=== PATIENT | male | born 1945 | race Caucasian/White ===

== ENCOUNTER 2019-06-05 16:31 | Inpatient (IN) | payer MEDICARE, OTHER, MEDICAID, SELFPAY ==
--- NOTE | ~2019-06-05 | XR_ITS ---
EXAMINATION: XR chest 2V DATE: 06/05/2019 17:22 INDICATION: Fever TECHNIQUE: frontal and lateral views of the chest were obtained. COMPARISON: Chest radiograph dated 01/07/2019 FINDINGS: Unchanged subtle mild linear discoid atelectasis/scarring in the right middle lobe. Calcified nodule at the right costophrenic angle and calcified right hilar lymph nodes consistent with old granulomato us disease. The lungs remain otherwise clear with no new airspace opacities, pulmonary edema, pleural effusion or pneumothorax. The cardiomediastinal silhouette is normal. There are bridging osteophytes at multiple levels in the spine, consistent with diffuse idiopathic skeletal hyperostosis (DISH). IMPRESSION: 1. No acute cardiopulmonary disease. Reviewed, dictated and finalized at location A. COMMUNITY MANAGER
[2019-06-05 16:40] VITALS: BP 109/56; PULSE 103; RESP 20; TEMP 39.2; O2SAT 100
--- NOTE | 2019-06-05 16:56 | ED.FEVER ---
HPI - Fever General Chief Complaint: Fever Stated Complaint: flu like symptoms Time Seen by Provider: 06/05/19 16:48 Source: patient Mode of arrival: EMS Limitations: clinical condition and dementia History of Present Illness HPI Narrative: Patient is a 73-year-old male who presents to the emergency department via EMS from local alf with report of fever. Patient was given acetaminophen prior to arrival. Patient denies any focal illness symptoms aside from reporting some mild cough. MD elicited complaint: fever Pertinent past history: diabetes Associated symptoms: cough Treatments prior to arrival fever: acetaminophen Related Data Home Medications Medication Instructions Recorded Confirmed acetaminophen 500 mg PO Q6H PRN 06/05/19 alogliptin 25 mg PO DAILY 06/05/19 amlodipine 5 mg PO DAILY 06/05/19 aspirin 325 mg PO DAILY 06/05/19 atorvastatin 80 mg PO HS 06/05/19 cephalexin 500 mg PO Q8H 06/05/19 cholecalciferol (vitamin D3) 3,000 unit PO DAILY 06/05/19 dicyclomine 20 mg PO QID 06/05/19 finasteride 5 mg PO DAILY 06/05/19 furosemide 20 mg PO DAILY 06/05/19 gabapentin 300 mg PO TID 06/05/19 insulin aspart U-100 [Novolog 1 sliding scale dose SUBCUT 06/05/19 U-100 Insulin aspart] USEASDIRECTD insulin glargine [Lantus U-100 25 unit SUBCUT HS 06/05/19 Insulin] ipratropium-albuterol 3 ml INHALATION Q6H PRN 06/05/19 iron ps [id number] acid 1 cap PO BID 06/05/19 [Poly-Iron 150 Forte] lisinopril 40 mg PO DAILY 06/05/19 memantine [Namenda] 5 mg PO BID 06/05/19 metformin 1,000 mg PO DAILY 06/05/19 metoprolol tartrate 25 mg PO BID 06/05/19 ondansetron 4 mg PO Q6H PRN 06/05/19 oxycodone 5 mg PO Q8H PRN 06/05/19 simethicone 125 mg PO QID 06/05/19 Allergies Allergy/AdvReac Type Severity Reaction Status Date / Time shrimp Allergy Mild Unknown Verified 06/05/19 16:52 sulfamethoxazole Allergy Unknown Verified 06/05/19 16:50 [From Bactrim] trimethoprim [From Bactrim] Allergy Unknown Verified 06/05/19 16:50 Review of Systems Review of Systems: All systems reviewed & are unremarkable except as noted in HPI and below Constitutional: Constitutional: Reports fever(s) Respiratory: Respiratory: Reports cough PMFSH Past Medical History Medical History (Updated 06/05/19 @ 18:16 by Aida Zhao MD) 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 Anemia BPH (benign prostatic hyperplasia) CAD (coronary artery disease) Carotid stenosis CHF (congestive heart failure) Dementia Depression Diabetes Hip fracture requiring operative repair Hyperlipidemia Hypertension Hypothyroidism MRSA (methicillin resistant staph aureus) culture positive Osteoarthritis PAD (peripheral artery disease) UTI (urinary tract infection) Surgical History Surgical History (Updated 06/05/19 @ 17:31 by Aida Zhao MD) H/O cardiac catheterization History of coronary artery stent placement Social History Social History (Updated 04/30/19 @ 11:09 by Kate Adams) Smoking status: Current every day smoker Tobacco type: cigars Gender identity (if verbalized by the patient): Male Exam Const: General: cooperative, no acute distress, alert, diaphoretic and ill appearing acutely Nutritional Appearance: well nourished HENMT: Mouth: Yes lip normal and Yes dry mucous membranes Resp: Effort & Inspection: normal respiratory effort Auscultation: clear to auscultation bilaterally Cardio: Rate: regular rate Rhythm: regular rhythm GI: GI Palp: Yes Soft to palpation and No Tenderness to palpation present (GI) Auscultation: normal bowel sounds Skin: General skin exam: normal color Wounds: no wounds Neuro: General: moves all extremities Cognition (Neuro): normal cognition Speech: normal speech Extrem: General: full ROM and no clubbing, cyanosis or edema Right lower extremity: lower leg Other: Bilateral and below the knee amputation
[2019-06-05 17:21] LABS: Add Urine Microscopic? YES; Appearance Urine Cloudy (Clear); Bacteria Urine 4+ /hpf; Bilirubin Urine Negative (Negative); Blood Urine 2+ (Negative); Color Urine Yellow (Yellow); Glucose Urine UA 3+ mg/dL (Negative); Ketones Urine Negative (Negative); Leukocyte Esterase Ur 3+ LEU/UL (Negative); Mucus Urine Few /lpf; Nitrate Urine Negative (Negative); Protein Urine 1+ mg/dL (Negative); RBC Urine 21-50 /hpf (0-2); Specific Grav Ur 1.016 (1.001-1.035); Squamous Epithelial Cell Urine Rare /hpf (Few); Urobilinogen Urine Negative mg/dL (<2.0); WBC Urine 51-75 /hpf
[2019-06-05] MEDS: LACTATED RINGERS 1,000 ML 999 ML IV CONT (17:42)
[2019-06-05 17:45] LABS: Hematocrit 32.9 % (42.0-52.0); Hemoglobin 10.5 g/dL (14.0-18.0); Mean Corpuscular HGB Conc 31.9 g/dl (32-36); Mean Corpuscular Hemoglobin 26.9 pg (26-34); Mean Corpuscular Volume 84.1 fl (80-100); Mean Platelet Volume 10.7 fl (7.4-10.4); Platelet Count Result 255 k/mm3 (150-375); Red Blood Count 3.91 M/mm3 (4.6-6.20); Red Cell Distribution Width 17.1 % (11.5-14.5); White Blood Count 20.7 K/mm3 (4.5-10.0)
[2019-06-05 17:55] LABS: INR 1.1
[2019-06-05 17:56] LABS: Partial Thromboplastin Time 32.8 SECONDS (22.3-36.8)
[2019-06-05 17:57] LABS: Lactic Acid Reflex 1.8 mmol/L (0.7-2.1)
[2019-06-05 17:59] LABS: Band Neutrophils Percent 1 % (0-6); Lymphocytes Absolute Manual 2.07 K/mm3 (1.1-4.5); Monocytes Absolute Manual 1.03 K/mm3 (0.1-0.90); Monocytes Percent Manual 5 % (3-9); Neutrophils Absolute Manual 17.59 K/mm3 (1.3-6.7); Neutrophils Percent Manual 84 % (46-73); Ovalocytes 1+ (NORMAL); Platelet Estimate Adequate (Adequate); Total Cells Counted 100
[2019-06-05 18:09] LABS: Alanine Aminotransferase 19 U/L (4-50); Albumin Level 3.6 g/dL (3.5-5.1); Alkaline Phosphatase 72 U/L (38-126); Aspartate Amino Transferase 25 U/L (17-59); Bilirubin,Total 0.5 mg/dL (0.2-1.3); Blood Urea Nitrogen 20 mg/dL (9-20); Carbon Dioxide 27 mmol/L (22-30); Chloride 95 mmol/L (98-107); Estimated Glomerular Filt Rate > 60; Glucose 253 mg/dL (75-110); Potassium 3.9 mmol/L (3.4-5.0); Sodium 135 mmol/L (137-145)
--- NOTE | 2019-06-05 19:22 | PM.IMHP ---
H&P: HPI History of Present Illness Chief complaint: Sent to the hospital secondary to fever Narrative: This is a 73-year-old insulin-dependent diabetic male with known history of bilateral BKAs who is known to me from a previous hospitalization and presented to the hospital tonight from his [facility] secondary to fever. The patient complains of feeling tired and weak. He says that he believes he was sent here because he had fever. He denies any recent confusion or disorientation. He denies any headache, neck stiffness, shortness of breath, chest pain, abdominal pain, nausea, vomiting, diarrhea, rectal bleeding, or worsening swelling. The patient does report a sporadic cough recently. He denies any sore throat or congestion. The patient was evaluated emergency room this evening and found to be septic [place] [address], fever of 39.2? C, and tachycardic with a heart rate of 103 beats per minute. Urinalysis was grossly abnormal in the patient has been started on antibiotics for presumed UTI. On further questioning [facility]. Denies any other urinary symptoms that he is aware of. Initial lactic acid was negative. Blood pressure has been stable. 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 Anemia BPH (benign prostatic hyperplasia) CAD (coronary artery disease) Carotid stenosis CHF (congestive heart failure) Dementia Depression Diabetes Hip fracture requiring operative repair Hyperlipidemia Hypertension Hypothyroidism MRSA (methicillin resistant staph aureus) culture positive Osteoarthritis PAD (peripheral artery disease) UTI (urinary tract infection) Surgical History Surgical History H/O cardiac catheterization History of below-knee amputation of both lower extremities History of coronary artery stent placement Family History Family History Father AA (alcohol abuse) Sibling Breast cancer Mother Ovarian cancer Social History Social History Smoking status: Current every day smoker Tobacco type: cigars Alcohol intake: unknown Substance use: unknown Substance use type: does not use Gender identity (if verbalized by the patient): Male Spiritual care concerns: No Agree to blood products: Yes Meds Home Medications and Allergies Home Medications Medication Instructions Recorded Confirmed Type acetaminophen 1,000 mg PO Q4H PRN 06/05/19 06/05/19 History alogliptin 25 mg PO DAILY 06/05/19 06/05/19 History amlodipine 5 mg PO HS 06/05/19 06/05/19 History aspirin 325 mg PO DAILY 06/05/19 06/05/19 History atorvastatin 80 mg PO HS 06/05/19 06/05/19 History cephalexin 500 mg PO Q8H 06/05/19 06/05/19 History cholecalciferol (vitamin D3) 1,000 unit PO DAILY 06/05/19 06/05/19 History dicyclomine 20 mg PO QID 06/05/19 06/05/19 History finasteride 5 mg PO DAILY 06/05/19 06/05/19 History furosemide 20 mg PO DAILY 06/05/19 06/05/19 History gabapentin 300 mg PO TID 06/05/19 06/05/19 History insulin aspart U-100 [Novolog 1 sliding scale dose SUBCUT 06/05/19 06/05/19 History U-100 Insulin aspart] USEASDIRECTD insulin glargine [Lantus U-100 100 unit SUBCUT HS 06/05/19 06/05/19 History Insulin] ipratropium-albuterol 3 ml INHALATION TID PRN 06/05/19 06/05/19 History iron ps [id number] acid 1 cap PO BID 06/05/19 06/05/19 History [Poly-Iron 150 Forte] lisinopril 40 mg PO DAILY 06/05/19 06/05/19 History memantine [Namenda] 5 mg PO BID 06/05/19 06/05/19 History metformin 1,000 mg PO DAILY 06/05/19 06/05/19 History metoprolol tartrate 25
[2019-06-05 19:34] VITALS: BP 124/51; PULSE 84; RESP 17; TEMP 37.4; O2SAT 100
[2019-06-05 20:34] LABS: Glucose Point of Care 243 (65-105)
[2019-06-05] MEDS: SODIUM CHLORIDE 0.9% IV 1,000 ML 125 ML IV CONT (21:05)
[2019-06-05 21:32] VITALS: BP 118/68; PULSE 81; RESP 18; TEMP 36.3; O2SAT 98; BMI 38.3
[2019-06-05 21:42] LABS: Glucose Point of Care 202 (65-105)
[2019-06-05 22:10] LABS: Lactic Acid Reflex 1.7 mmol/L (0.7-2.1)
[2019-06-06] MEDS: ACETAMINOPHEN 325 MG TABLET 650 MG PO ×2 (03:41→20:46)
[2019-06-06] MEDS: SODIUM CHLORIDE 0.9% IV 1,000 ML 125 ML IV CONT (04:55)
[2019-06-06 05:38] LABS: Basophils Percent Auto 0.3 % (0.2-1.2); Eosinophils Absolute Auto 0.1 K/mm3 (0-0.3); Eosinophils Percent Auto 0.5 % (0-4.4); Hematocrit 28.8 % (42.0-52.0); Hemoglobin 9.2 g/dL (14.0-18.0); Immature Granulocyte Absolute 0.07 K/mm3 (0.00-0.031); Immature Granulocyte Percent A 0.5 % (0-0.5); Lymphocytes Absolute Auto 1.56 K/mm3 (0.9-3.2); Mean Corpuscular HGB Conc 31.9 g/dl (32-36); Mean Corpuscular Volume 84.5 fl (80-100); Mean Platelet Volume 10.8 fl (7.4-10.4); Monocytes Absolute Auto 0.8 K/mm3 (0.1-0.6); Monocytes Percent Auto 5.9 % (2.6-8.5); Neutrophils Absolute Auto 11.6 K/mm3 (1.3-6.7); Neutrophils Percent Auto 81.8 % (45.5-73.1); Platelet Count Result 210 k/mm3 (150-375); Red Blood Count 3.41 M/mm3 (4.6-6.20); Red Cell Distribution Width 17.2 % (11.5-14.5); White Blood Count 14.2 K/mm3 (4.5-10.0)
[2019-06-06 05:57] LABS: Blood Urea Nitrogen 18 mg/dL (9-20); Calcium 8.4 mg/dL (8.4-10.2); Carbon Dioxide 27 mmol/L (22-30); Chloride 100 mmol/L (98-107); Estimated CRCL calculation 77 ml/min; Estimated Glomerular Filt Rate > 60; Glucose 193 mg/dL (75-110); Potassium 3.5 mmol/L (3.4-5.0); Sodium 135 mmol/L (137-145)
[2019-06-06 06:00] VITALS: BP 123/71; PULSE 78; RESP 16; TEMP 36.2; O2SAT 96
[2019-06-06] MEDS: ENOXAPARIN 40 MG/0.4 ML SYRINGE SUB-Q (07:47)
[2019-06-06 07:53] LABS: Glucose Point of Care 176 (65-105)
[2019-06-06 09:04] LABS: Transferrin 143 mg/dL (206-381)
[2019-06-06 09:33] LABS: Iron 19 ug/dL (49-181)
[2019-06-06 09:42] LABS: Percent Iron Saturation 9 % (20-50)
[2019-06-06 09:45] LABS: Thyroid Stimulating Hormone Reflex 0.222 uIU/mL (0.465-4.68)
[2019-06-06 09:59] LABS: Folic Acid 15.8 ng/mL (2.76->20)
[2019-06-06] MEDS: INSULIN ASPART (*BKC) 100 UNITS/ML SUB-Q ×2 (11:36→17:17)
[2019-06-06 11:37] LABS: Glucose Point of Care 239 (65-105)
[2019-06-06 12:03] LABS: Free T4 Free Thyroxine Reflex 1.86 ng/dL (0.78-2.19)
[2019-06-06 13:09] LABS: Total Triiodothyronine (T3) 0.84 NG/ML (0.97-1.69)
[2019-06-06 14:00] VITALS: BP 132/55; PULSE 87; RESP 16; TEMP 36.1; O2SAT 96
--- NOTE | 2019-06-06 17:13 | PM.IMPN ---
Progress Note: A&P Assessment and Plan (1) Sepsis: Qualifiers: Sepsis acute organ dysfunction status: without acute organ dysfunction Sepsis type: sepsis due to unspecified organism Qualified Code(s): A41.9 - Sepsis, unspecified organism Code(s): A41.9 - Sepsis, unspecified organism Status: Acute Assessment and Plan: Patient's temperature was a 102.5?, blood pressure 109/56, tachycardic 103, 100% on room air in leukocytosis of 20,700 which met for sepsis with evidence of UTI. Lactic acid was normal. Today patient's leukocytosis improved to 14,200, non tachycardic, no more fevers, and BP has normalized. IV fluids were discontinued due to history of congestive heart failure. Monitor vital signs and urine output closely. Continue IV vancomycin. (2) UTI (urinary tract infection): Qualifiers: Hematuria presence: without hematuria Urinary tract infection type: site unspecified Qualified Code(s): N39.0 - Urinary tract infection, site not specified Code(s): N39.0 - Urinary tract infection, site not specified Status: Acute Assessment and Plan: Rule out UTI with abnormal urinalysis. Patient has been started on ceftriaxone IV in the emergency room despite the fact that the patient had a positive urine culture in December of this year for a multi-drug resistant MRSA which included resistance to oxacillin. Upon admission to the floor he was started on vancomycin IV. Infectious disease was consulted this morning for further recommendations based on his history and length of therapy. Patient denies any symptoms at this time and is feeling better. Patient's urine culture came back Gram-negative bacilli isolation, final results and sensitivities are pending. Continue IV vancomycin at this time and monitoring the patient's symptoms. (3) Chronic anemia: Code(s): D64.9 - Anemia, unspecified Status: Chronic Assessment and Plan: Patient's hemoglobin ranges between 10 and 12 normally. With prior hospitalizations last year he was in 8 and 9's. Hemoglobin as an outpatient on 04/30/2019 was 15.2, initially on arrival his hemoglobin was 10.5. Hemoglobin seems to have dropped significantly over the past month. The patient denies any active rectal bleeding. We will check a stool occult for blood. This morning hemoglobin was 9.2 and hematocrit 28.8%. This decreased could be due to IV fluid dilution. I did check iron panel which shows anemia of chronic disease. His vitamin B12 and folic acid were both normal. TSH was slightly low but had a normal free T4. Will have follow-up with his primary care provider with a repeat 6 weeks. Monitor H&H, transfuse p.r.n. (4) Leukocytosis: Qualifiers: Leukocytosis type: unspecified Qualified Code(s): D72.829 - Elevated white blood cell count, unspecified Code(s): D72.829 - Elevated white blood cell count, unspecified Status: Acute Assessment and Plan: Likely secondary to UTI and sepsis. Leukocytosis improving with IV antibiotics. Monitor CBCD. 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 continue metformin. Continue long-acting Lantus insulin. This morning serum glucose was 193. Accu-Cheks, sliding scale insulin coverage. Hypoglycemia protocol.
[2019-06-06 17:20] LABS: Glucose Point of Care 208 (65-105)
[2019-06-06 19:22] LABS: IFOB Positive Control Positive; Immunochemical Fecal Occult Bl Negative (N)
[2019-06-06] MEDS: APIXABAN 5 MG TABLET PO (21:35)
[2019-06-06 21:37] VITALS: BP 157/66; PULSE 90; RESP 16; TEMP 36.3; O2SAT 96
[2019-06-06 22:50] LABS: Glucose Point of Care 158 (65-105)
[2019-06-07 05:46] VITALS: BP 165/63; PULSE 92; RESP 16; TEMP 36.3; O2SAT 95
[2019-06-07 06:04] LABS: Basophils Percent Auto 0.3 % (0.2-1.2); Eosinophils Absolute Auto 0.2 K/mm3 (0-0.3); Eosinophils Percent Auto 1.1 % (0-4.4); Hematocrit 33.3 % (42.0-52.0); Hemoglobin 10.8 g/dL (14.0-18.0); Immature Granulocyte Absolute 0.05 K/mm3 (0.00-0.031); Immature Granulocyte Percent A 0.4 % (0-0.5); Lymphocytes Absolute Auto 1.51 K/mm3 (0.9-3.2); Lymphocytes Percent Auto 10.8 % (18.3-44.2); Mean Corpuscular HGB Conc 32.4 g/dl (32-36); Mean Corpuscular Hemoglobin 26.6 pg (26-34); Mean Platelet Volume 10.6 fl (7.4-10.4); Monocytes Absolute Auto 0.8 K/mm3 (0.1-0.6); Monocytes Percent Auto 5.3 % (2.6-8.5); Neutrophils Absolute Auto 11.5 K/mm3 (1.3-6.7); Neutrophils Percent Auto 82.1 % (45.5-73.1); Platelet Count Result 249 k/mm3 (150-375); Red Blood Count 4.06 M/mm3 (4.6-6.20); Red Cell Distribution Width 16.6 % (11.5-14.5)
[2019-06-07 06:29] LABS: Blood Urea Nitrogen 12 mg/dL (9-20); Calcium 8.4 mg/dL (8.4-10.2); Carbon Dioxide 25 mmol/L (22-30); Chloride 94 mmol/L (98-107); Estimated CRCL calculation 105 ml/min; Estimated Glomerular Filt Rate > 60; Glucose 195 mg/dL (75-110); Magnesium 1.7 mg/dL (1.6-2.3); Potassium 3.9 mmol/L (3.4-5.0); Sodium 135 mmol/L (137-145)
[2019-06-07 08:00] VITALS: PULSE 92; RESP 16; O2SAT 95
[2019-06-07] MEDS: INSULIN ASPART (*BKC) 100 UNITS/ML SUB-Q ×3 (08:16→17:51)
[2019-06-07] MEDS: APIXABAN 5 MG TABLET PO ×2 (08:16→21:31)
[2019-06-07] MEDS: DOCUSATE SODIUM 100 MG CAPSULE PO (08:16)
[2019-06-07 08:22] LABS: Glucose Point of Care 226 (65-105)
--- NOTE | 2019-06-07 09:54 | PM.IMPN ---
Progress Note: A&P Assessment and Plan (1) Sepsis: Qualifiers: Sepsis acute organ dysfunction status: without acute organ dysfunction Sepsis type: sepsis due to unspecified organism Qualified Code(s): A41.9 - Sepsis, unspecified organism Code(s): A41.9 - Sepsis, unspecified organism Status: Acute Assessment and Plan: On arrival patient's temperature was a 102.5?, blood pressure 109/56, tachycardic 103, 100% on room air in leukocytosis of 20,700 which met for sepsis with evidence of UTI. Lactic acid was normal. Today patient's leukocytosis continues to be 14,000, non tachycardic, no more fevers, and BP has normalized. Urine culture came back today showing he has ESBL E coli and IV vancomycin was not sensitive. I switched him to IV cefepime today. Disease was consulted on the patient and his input is greatly appreciated. Monitor vital signs and urine output closely. Continue IV vancomycin. (2) UTI (urinary tract infection): Qualifiers: Hematuria presence: without hematuria Urinary tract infection type: site unspecified Qualified Code(s): N39.0 - Urinary tract infection, site not specified Code(s): N39.0 - Urinary tract infection, site not specified Status: Acute Assessment and Plan: Rule out UTI with abnormal urinalysis. Patient has been started on ceftriaxone IV in the emergency room despite the fact that the patient had a positive urine culture in December of this year for a multi-drug resistant MRSA which included resistance to oxacillin. Upon admission to the floor he was started on vancomycin IV. Today the patient's urine cultures came back showing ESBL E coli. I switch the patient IV cefepime for treatment this morning. Infectious disease consult was placed and treatment is greatly appreciated. Continue IV vancomycin at this time and monitoring the patient's symptoms. (3) Chronic anemia: Code(s): D64.9 - Anemia, unspecified Status: Chronic Assessment and Plan: Patient's hemoglobin ranges between 10 and 12 normally. With prior hospitalizations last year he was in 8 and 9's. Hemoglobin as an outpatient on 04/30/2019 was 15.2, initially on arrival his hemoglobin was 10.5. Hemoglobin seems to have dropped significantly over the past month. The patient denies any active rectal bleeding. Stool Hemoccult was negative for blood. This morning hemoglobin was 10.8 and hematocrit 33.3%. This decreased could be due to IV fluid dilution. I did check iron panel which shows anemia of chronic disease. His vitamin B12 and folic acid were both normal. TSH was slightly low but had a normal free T4. Will have follow-up with his primary care provider with a repeat 6 weeks. Monitor H&H, transfuse p.r.n. (4) Leukocytosis: Qualifiers: Leukocytosis type: unspecified Qualified Code(s): D72.829 - Elevated white blood cell count, unspecified Code(s): D72.829 - Elevated white blood cell count, unspecified Status: Acute Assessment and Plan: Likely secondary to UTI and sepsis. Leukocytosis was stable today. This morning I switched him to the correct antibiotics to treat his UTI. Monitor CBCD daily. 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 continue metformin. Continue long-acting Lantus insulin.
[2019-06-07] MEDS: SILVERGEL (ELTA) 45 ML 1 APPLIC TOPICAL (13:09)
--- NOTE | 2019-06-07 13:25 | WPDINFPN2 ---
Progress Note: A&P Assessment and Plan (1) UTI (urinary tract infection): Qualifiers: Hematuria presence: without hematuria Urinary tract infection type: site unspecified Qualified Code(s): N39.0 - Urinary tract infection, site not specified Code(s): N39.0 - Urinary tract infection, site not specified Status: Acute Assessment and Plan: fever and leukocytosis, probable uti REC Flu swab. Imipenem # 1 / 7 days tentatively Subjective Date/time seen: 06/07/19 13:25 Objective Data Vital Signs Vital Signs: Vital Signs - 24 hr 06/06/19 14:00 06/06/19 21:37 06/07/19 05:46 Temperature 36.1 C L 36.3 C L 36.3 C L Pulse Rate 87 90 92 Respiratory Rate 16 16 16 Blood Pressure 132/55 L 157/66 H 165/63 H Pulse Oximetry 96 96 95 06/07/19 08:00 Temperature Pulse Rate 92 Respiratory Rate 16 Blood Pressure Pulse Oximetry 95 Intake/Output Intake/Output: Intake & Output 06/04/19 06/05/19 06/06/19 06/07/19 23:59 23:59 23:59 23:59 Intake Total 1300 4229 620 Output Total 500 1960 1575 Balance 800 8689 -512 Meds/Results Medications: Active Medications Generic Name Dose Route Start Last Admin Trade Name Freq PRN Reason Stop Dose Admin Acetaminophen 650 mg 06/05/19 18:11 06/06/19 20:46 Tylenol Tablet PO 650 mg Q4H PRN Administration Mild Pain (1-3) or Fever Apixaban 5 mg 06/06/19 21:00 06/07/19 08:16 Eliquis PO 5 mg Q12HR SHAN Administration Dextrose 12.5 gm 06/05/19 19:42 Dextrose 50% Syringe IV PUSH PRN PRN Hypoglycemia Protocol Docusate Sodium 100 mg 06/06/19 17:17 06/07/19 08:16 Colace Capsule PO 100 mg Q12H PRN Administration Constipation Glucagon 1 mg 06/05/19 19:42 Glucagon For Inj IM PRN PRN Hypoglycemia Protocol Glucose 15 gm 06/05/19 19:42 Glutose 15 PO PRN PRN Hypoglycemia Protocol Dextrose 1,000 mls @ 100 mls/hr 06/05/19 19:42 Dextrose 5% 1,000 Ml IVPB PRN PRN Hypoglycemia Protocol Cefepime HCl 1 gm in 50 mls @ 100 mls/hr 06/07/19 07:40 06/07/19 13:16 Maxipime 1 Gm/D5w 50 Ml IVPB 100 mls/hr Q8HR SHAN Administration Insulin Aspart 3 - 6 units 06/06/19 08:00 06/07/19 13:08 Novolog SUB-Q 6 units TIDWM SHAN Administration Protocol Miconazole Nitrate 1 applic 06/07/19 09:00 06/07/19 13:10 [place] TOPICAL 1 applic Q12HR SHAN Administration Silver Nitrate 1 applic 06/07/19 09:00 06/07/19 13:09 Silvergel TOPICAL 1 applic DAILY SHAN Administration Radiology Results: ITS Impressions Chest X-Ray 06/05/19 17:49 IMPRESSION: 1. No acute cardiopulmonary disease. Labs Labs: Laboratory Results - last 24 hr 06/06/19 06/06/19 06/06/19 17:16 18:54 22:45 WBC RBC Hgb Hct MCV MCH MCHC RDW Plt Count MPV Immature Gran % (Auto) Neut % (Auto) Lymph % (Auto) Mclean % (Auto) Eos % (Auto) Baso % (Auto) Lymph # (Auto) Mclean # (Auto) Eos # (Auto) Baso # (Auto) Abs Immat Gran (auto) Absolute Neuts (auto) Absolute Nucleated RBC Nucleated RBC % Sodium Potassium Chloride Carbon Dioxide BUN Creatinine Estim Creat Clear Calc Estimated GFR Glucose POC Capillary Glucose 208 H 158 H Calcium Magnesium Stl Occult Blood (IFOB) Negative 06/07/19 06/07/19 06/07/19 05:41 05:41 08:06 WBC 14.0 H RBC 4.06 L Hgb 10.8 L Hct 33.3 L MCV 82.0 MCH 26.6 MCHC 32.4 RDW 16.6 H Plt Count 249 MPV 10.6 H Immature Gran % (Auto) 0.4 Neut % (Auto) 82.1 H Lymph % (Auto) 10.8 L Mclean % (Auto) 5.3 Eos % (Auto) 1.1 Baso % (Auto) 0.3 Lymph # (Auto) 1.51 Mclean # (Auto) 0.8 H Eos # (Auto) 0.2 Baso # (Auto) 0.0 Abs Immat Gran (auto) 0.05 H Absolute Neuts (auto) 11.5 H Absolute Nucleated RBC 0.0 Nucleated RBC % 0.0
[2019-06-07 13:49] LABS: Glucose Point of Care 358 (65-105)
[2019-06-07 14:00] VITALS: BP 118/58; PULSE 89; RESP 16; TEMP 36.3; O2SAT 98
[2019-06-07] MEDS: IMIPENEM/CILASTATIN SODIUM 250 MG in DEXTROSE 5% 100 ML 300 MG IVPB (17:51)
--- NOTE | 2019-06-07 18:32 | CONS_ITS ---
DATE OF CONSULTATION: 06/07/2019 REASON FOR CONSULTATION: Fever. HISTORY OF PRESENT ILLNESS: The patient is a 73-year-old male with known BPH. He was admitted here last year with a fracture of his femur and underwent gamma nail insertion. [facility] with 1 day of fever to unknown height with dysuria. Here he was found to have a temperature of 39.2 and was admitted. He has been given cefepime and consultation is requested. He denies any current voiding symptoms and also denies rigors, night sweats, dyspnea, cough, sore throat, headache, skin rash, diarrhea, nausea, vomiting, or ulcers. ALLERGIES: TRIMETHOPRIM SULFA CAUSED UNKNOWN REACTION IN THE PAST. PRESENT MEDICATIONS: List reviewed. No systemic immunosuppressants. Cephalexin was listed as a home medication. I do not have the jail records to compare. HABITS: Cigar smoker. No alcohol. FAMILY HISTORY: Alcoholism and cancer. PAST MEDICAL AND SURGICAL HISTORY: Bilateral BKAs, coronary stents, peripheral vascular disease, osteoarthritis, hypothyroidism, hypertension, hyperlipidemia, diabetes mellitus, dementia, heart failure, carotid artery stenosis, and chronic anemia. SOCIAL HISTORY: No family at the bedside. He is listed as being single and jail resident. Before his femur fracture, he was in an assisted living. REVIEW OF SYSTEMS: Somewhat limited by the patient's dementia. A 14-point review otherwise negative. PHYSICAL EXAMINATION: GENERAL: This is an elderly male who appears his actual age, in no acute distress. VITAL SIGNS: His temperature several hours after arrival was 39.2, afebrile x36 hours plus. 165/63, 92, 16. 95% on room air. SKIN: Pale, warm, and dry. No rashes. NODES: He has no cervical adenopathy. EENT: The paranasal sinuses are without erythema, edema, or tenderness. The oropharynx, oral mucosa is normal. Edentulous. NECK: No thyromegaly. No meningismus. LUNGS: Clear to auscultation and percussion. CARDIAC: Regular rate and rhythm. Has a grade 1/6 systolic flow murmur, left sternal border. PMI is not displaced. ABDOMEN: Mildly obese, nontender. No mass. No organomegaly. : No [place]shine catheter. Circumcised male. EXTREMITIES: BKA sites are without evidence of erythema, wound dehiscence, tenderness, or warmth. Upper extremities have no clubbing, cyanosis, edema. LABORATORY DATA: Urine with an ESBL producing E coli. Blood cultures, no growth so far. His MRSA screen also on admission negative. White blood cell count initially 20.7, now 14.0, hemoglobin 10.8, which is stable and platelets are 249. Differential with a mild left shift. He has mild hyponatremia, hypochloremia. Glucose 195, down from 253. Prior hemoglobin A1c in December was 6.7%. Iron, TIBC both low. CRP 22.0. TSH is low. Free T4 normal. Urinalysis yellow, cloudy, 5.0, 1.016, positive for protein, glucose and blood and leukocyte esterase, 21 to 50 red cells, 51 to 75 white cells with clumping. Guaiac negative. RADIOLOGY DATA: Chest x-ray, no active disease. Abdomen and pelvic CT performed 5 weeks prior to admission, small bowel edema, left hepatic lobe hyperenhancing lesion, gallstones, diffuse bladder wall thickening, adenopathy, visceral. ASSESSMENT: 1. Fever and leukocytosis, suspect due to an extended spectrum beta-lactamase producing Escherichia coli urinary tract infection in the urinary bladder only. Upper tract infections unlikely. He probably has chronic cystitis from outlet obstruction in turn from benign prostatic hypertrophy. 2. Dementia. 3. Trimethoprim sulfa allergy. 4. Anemia. RECOMMENDATIONS: 1. Change cefepime to imipenem and tentatively 7 days. 2. No further cephalexin at this time. 3. Not in need of
[2019-06-07 18:34] LABS: Glucose Point of Care 292 (65-105)
[2019-06-07] MEDS: ACETAMINOPHEN 325 MG TABLET 650 MG PO (20:20)
[2019-06-07 21:45] VITALS: BP 151/60; PULSE 86; RESP 18; TEMP 36.4; O2SAT 99
[2019-06-07 22:25] LABS: Glucose Point of Care 201 (65-105)
[2019-06-08] MEDS: ACETAMINOPHEN 325 MG TABLET 650 MG PO ×3 (00:16→19:59)
[2019-06-08] MEDS: IMIPENEM/CILASTATIN SODIUM 250 MG in DEXTROSE 5% 100 ML 300 MG IVPB ×5 (00:44→23:47)
[2019-06-08 06:11] LABS: Basophils Percent Auto 0.3 % (0.2-1.2); Eosinophils Absolute Auto 0.2 K/mm3 (0-0.3); Eosinophils Percent Auto 1.8 % (0-4.4); Hematocrit 36.6 % (42.0-52.0); Hemoglobin 11.6 g/dL (14.0-18.0); Immature Granulocyte Absolute 0.05 K/mm3 (0.00-0.031); Immature Granulocyte Percent A 0.5 % (0-0.5); Lymphocytes Absolute Auto 1.68 K/mm3 (0.9-3.2); Mean Corpuscular HGB Conc 31.7 g/dl (32-36); Mean Corpuscular Hemoglobin 26.5 pg (26-34); Mean Corpuscular Volume 83.6 fl (80-100); Mean Platelet Volume 11.5 fl (7.4-10.4); Monocytes Absolute Auto 0.7 K/mm3 (0.1-0.6); Neutrophils Absolute Auto 7.8 K/mm3 (1.3-6.7); Neutrophils Percent Auto 74.4 % (45.5-73.1); Platelet Count Result 288 k/mm3 (150-375); Red Blood Count 4.38 M/mm3 (4.6-6.20); Red Cell Distribution Width 16.5 % (11.5-14.5); White Blood Count 10.5 K/mm3 (4.5-10.0)
[2019-06-08 06:21] LABS: Blood Urea Nitrogen 14 mg/dL (9-20); Carbon Dioxide 26 mmol/L (22-30); Chloride 94 mmol/L (98-107); Estimated CRCL calculation 105 ml/min; Estimated Glomerular Filt Rate > 60; Glucose 222 mg/dL (75-110); Potassium 3.5 mmol/L (3.4-5.0); Sodium 134 mmol/L (137-145)
[2019-06-08 06:25] VITALS: BP 149/68; PULSE 87; RESP 18; TEMP 36.1; O2SAT 97
[2019-06-08 08:00] VITALS: PULSE 87; RESP 18; O2SAT 97
[2019-06-08 08:03] LABS: Glucose Point of Care 233 (65-105)
[2019-06-08] MEDS: APIXABAN 5 MG TABLET PO (08:14)
[2019-06-08] MEDS: INSULIN ASPART (*BKC) 100 UNITS/ML SUB-Q ×3 (08:14→17:26)
[2019-06-08] MEDS: DOCUSATE SODIUM 100 MG CAPSULE PO (08:14)
[2019-06-08] MEDS: SILVERGEL (ELTA) 45 ML 1 APPLIC TOPICAL (08:15)
[2019-06-08 12:56] LABS: Glucose Point of Care 257 (65-105)
--- NOTE | 2019-06-08 13:01 | WPDINFPN2 ---
Progress Note: A&P Assessment and Plan (1) UTI (urinary tract infection): Qualifiers: Hematuria presence: without hematuria Urinary tract infection type: site unspecified Qualified Code(s): N39.0 - Urinary tract infection, site not specified Code(s): N39.0 - Urinary tract infection, site not specified Status: Acute Assessment and Plan: 1. fever and leukocytosis, suspect due to ESBL producing UTI 2. Dementia REC Flu swab not sent, re-request. Imipenem # 2 / 7 days tentatively, tolerating Subjective Date/time seen: 06/08/19 13:01 Interval history: no complaints, good appetite, no chills nor subjective fever Exam Narrative: Exam Narrative: afebrile since last visit Const: General: no acute distress Eyes: General: appearance normal, both eyes and all related structures Resp: Effort & Inspection: normal respiratory effort Auscultation: clear to auscultation bilaterally Cardio: Rate: regular rate Rhythm: regular rhythm Heart sounds: no gallops and no murmurs GI: Inspection: non-distended GI Palp: Yes Soft to palpation, No Tenderness to palpation present (GI) and No Guarding due to palpation present (GI) : General: Yes bladder normal to palpation Skin: General skin exam: no rashes or lesions noted Objective Data Vital Signs Vital Signs: Vital Signs - 24 hr 06/07/19 14:00 06/07/19 21:45 06/08/19 06:25 Temperature 36.3 C L 36.4 C L 36.1 C L Pulse Rate 89 86 87 Respiratory Rate 16 18 18 Blood Pressure 118/58 L 151/60 H 149/68 H Pulse Oximetry 98 99 97 06/08/19 08:00 Temperature Pulse Rate 87 Respiratory Rate 18 Blood Pressure Pulse Oximetry 97 Intake/Output Intake/Output: Intake & Output 06/05/19 06/06/19 06/07/19 06/08/19 23:59 23:59 23:59 23:59 Intake Total 1300 4229 1940 1240 Output Total 500 1960 2575 400 Balance 800 226 -253 840 Meds/Results Medications: Active Medications Generic Name Dose Route Start Last Admin Trade Name Freq PRN Reason Stop Dose Admin Acetaminophen 650 mg 06/05/19 18:11 06/08/19 08:19 Tylenol Tablet PO 650 mg Q4H PRN Administration Mild Pain (1-3) or Fever Apixaban 5 mg 06/06/19 21:00 06/08/19 08:14 Eliquis PO 5 mg Q12HR SHAN Administration Dextrose 12.5 gm 06/05/19 19:42 Dextrose 50% Syringe IV PUSH PRN PRN Hypoglycemia Protocol Docusate Sodium 100 mg 06/06/19 17:17 06/08/19 08:14 Colace Capsule PO 100 mg Q12H PRN Administration Constipation Glucagon 1 mg 06/05/19 19:42 Glucagon For Inj IM PRN PRN Hypoglycemia Protocol Glucose 15 gm 06/05/19 19:42 Glutose 15 PO PRN PRN Hypoglycemia Protocol Dextrose 1,000 mls @ 100 mls/hr 06/05/19 19:42 Dextrose 5% 1,000 Ml IVPB PRN PRN Hypoglycemia Protocol Imipenem/Cilastatin Sodium 250 100 mls @ 300 mls/hr 06/07/19 18:00 06/08/19 12:31 mg/ Dextrose IVPB 06/14/19 18:01 300 mls/hr Q6H SHAN Administration Insulin Aspart 3 - 6 units 06/06/19 08:00 06/08/19 12:32 Novolog SUB-Q 4 units TIDWM SHAN Administration Protocol Miconazole Nitrate 1 applic 06/07/19 09:00 06/08/19 08:15 Aloe [place] TOPICAL 1 applic Q12HR SHAN Administration Silver Nitrate 1 applic 06/07/19 09:00 06/08/19 08:15 Silvergel TOPICAL 1 applic DAILY SHAN Administration Radiology Results: ITS Impressions Chest X-Ray 06/05/19 17:49 IMPRESSION: 1. No acute cardiopulmonary disease. Labs Labs: Laboratory Results - last 24 hr 06/07/19 06/07/19 06/07/19 13:05 17:45 21:28 WBC RBC Hgb Hct MCV MCH MCHC RDW Plt Count MPV Immature Gran % (Auto) Neut % (Auto) Lymph % (Auto) [place] % (Auto) Eos % (Auto) Baso % (Auto) Lymph # (Auto) [place] # (Auto) Eos # (Auto) Baso # (Auto) Abs Immat Gran (auto) Absolute Neuts (auto) Absolute Nucleated RBC Nucleated RB
[2019-06-08 14:00] VITALS: BP 142/46; PULSE 85; RESP 20; TEMP 36.1; O2SAT 97
[2019-06-08 14:50] VITALS: BMI 38.3
--- NOTE | 2019-06-08 15:37 | PC.NURSE ---
On 06/08/19, the student, Belen Araujo, provided care and completed [facility] documentation on this patient. I have reviewed the student's documentation and agree with the findings.
[2019-06-08 17:29] LABS: Glucose Point of Care 276 (65-105)
[2019-06-08 18:32] LABS: Influenza Control Positive
--- NOTE | 2019-06-08 20:24 | PM.IMPN ---
Progress Note: A&P Assessment and Plan (1) UTI (urinary tract infection): Qualifiers: Hematuria presence: without hematuria Urinary tract infection type: site unspecified Qualified Code(s): N39.0 - Urinary tract infection, site not specified Code(s): N39.0 - Urinary tract infection, site not specified Status: Acute Assessment and Plan: ESBL UTI susceptible to imipenem. Patient improving clinically ID consulted and greatly appreciate recommendations Continue IV imipenem per ID recommendations. Monitor (2) Sepsis: Qualifiers: Sepsis acute organ dysfunction status: without acute organ dysfunction Sepsis type: sepsis due to unspecified organism Qualified Code(s): A41.9 - Sepsis, unspecified organism Code(s): A41.9 - Sepsis, unspecified organism Status: Acute Assessment and Plan: On arrival patient's temperature was a 102.5?, blood pressure 109/56, tachycardic 103, 100% on room air in leukocytosis of 20,700 which met for sepsis with evidence of UTI. Lactic acid was normal. This has improved, if not nearly resolved with treatment of UTI. Continue imipenem treatment per ID recommendations Await further recommendations from ID. (3) Chronic anemia: Code(s): D64.9 - Anemia, unspecified Status: Chronic Assessment and Plan: Patient's hemoglobin ranges between 10 and 12 normally. With prior hospitalizations last year he was in 8 and 9's with a Hgb of 15.2 in 04/2019, although, possibly falsely elevated. Stool Hemoccult was negative for blood. Iron panel which suggestive of anemia of chronic disease. His vitamin B12 and folic acid were both normal. TSH was slightly low but had a normal free T4. Will have follow-up with his primary care provider with a repeat TSH in 6 weeks. Monitor H&H, transfuse p.r.n. (4) Leukocytosis: Qualifiers: Leukocytosis type: unspecified Qualified Code(s): D72.829 - Elevated white blood cell count, unspecified Code(s): D72.829 - Elevated white blood cell count, unspecified Status: Acute Assessment and Plan: Likely secondary to UTI and sepsis. WBC 10.5K today, downtrending continue to trend tomorrow with treatment of ESBL UTI 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 mellitus penitentiary insulin use: with penitentiary use Diabetes mellitus complication status: with circulatory complication Diabetes mellitus complication detail: with other circulatory complications Qualified Code(s): E11.59 - Type 2 diabetes mellitus with other circulatory complications; Z79.4 - long-term (current) use of insulin Code(s): E11.9 - Type 2 diabetes mellitus without complications Status: Chronic Assessment and Plan: BGL today was 200s Continue metformin. Lantus 30 units QHS. Consider increasing if continued to be elevated into 200s Continue Accu-Cheks, sliding scale insulin coverage. Hypoglycemia protocol. (6) Hyperlipidemia: Qualifiers: Hyperlipidemia type: unspecified Qualified Code(s): E78.5 - Hyperlipidemia, unspecified Code(s): E78.5 - Hyperlipidemia, unspecified Status: Chronic Assessment and Plan: Continue Lipitor (7) Dementia: Qualifiers: Dementia type: unspecified type Dementia behavioral disturbance: without behavioral disturbance Qualified Code(s): F03.90 - Unspecified dementia without behavioral disturbance Code(s): F03.90 - Unspecified dementia without behavioral disturbance Status: Chronic Assessment and Plan: Continue memantine (8) CAD (coronary art
[2019-06-08] MEDS: AMLODIPINE BESYLATE 5 MG TABLET PO (21:42)
[2019-06-08] MEDS: ATORVASTATIN 40 MG TABLET 80 MG PO (21:43)
[2019-06-08] MEDS: MEMANTINE 5 MG TABLET PO (21:43)
[2019-06-08 21:44] VITALS: PULSE 90
[2019-06-08] MEDS: GABAPENTIN 300 MG CAPSULE PO (21:44)
[2019-06-08] MEDS: METOPROLOL TARTRATE 25 MG TABLET PO (21:44)
[2019-06-08] MEDS: INSULIN GLARGINE (*BKC) 100 UNITS/ML 30 UNITS SUB-Q (21:46)
[2019-06-08 22:15] VITALS: BP 130/60; PULSE 90; RESP 18; TEMP 36.2; O2SAT 98
[2019-06-08 22:59] LABS: Glucose Point of Care 303 (65-105)
[2019-06-09 05:37] LABS: Basophils Percent Auto 0.3 % (0.2-1.2); Eosinophils Absolute Auto 0.1 K/mm3 (0-0.3); Eosinophils Percent Auto 1.2 % (0-4.4); Hematocrit 34.1 % (42.0-52.0); Hemoglobin 10.8 g/dL (14.0-18.0); Immature Granulocyte Absolute 0.07 K/mm3 (0.00-0.031); Immature Granulocyte Percent A 0.6 % (0-0.5); Lymphocytes Absolute Auto 1.57 K/mm3 (0.9-3.2); Lymphocytes Percent Auto 14.2 % (18.3-44.2); Mean Corpuscular HGB Conc 31.7 g/dl (32-36); Mean Corpuscular Hemoglobin 26.6 pg (26-34); Mean Platelet Volume 10.6 fl (7.4-10.4); Monocytes Absolute Auto 0.8 K/mm3 (0.1-0.6); Monocytes Percent Auto 6.9 % (2.6-8.5); Neutrophils Absolute Auto 8.5 K/mm3 (1.3-6.7); Neutrophils Percent Auto 76.8 % (45.5-73.1); Platelet Count Result 342 k/mm3 (150-375); Red Blood Count 4.06 M/mm3 (4.6-6.20); Red Cell Distribution Width 16.5 % (11.5-14.5); White Blood Count 11.1 K/mm3 (4.5-10.0)
[2019-06-09] MEDS: IMIPENEM/CILASTATIN SODIUM 250 MG in DEXTROSE 5% 100 ML 300 MG IVPB ×3 (05:41→23:59)
[2019-06-09] MEDS: GABAPENTIN 300 MG CAPSULE PO ×3 (05:42→21:01)
[2019-06-09 05:47] LABS: Potassium 3.6 mmol/L (3.4-5.0)
[2019-06-09 05:54] VITALS: BP 146/38; PULSE 77; RESP 16; TEMP 36.8; O2SAT 96
[2019-06-09 06:29] LABS: Blood Urea Nitrogen 16 mg/dL (9-20); Calcium 8.8 mg/dL (8.4-10.2); Carbon Dioxide 30 mmol/L (22-30); Chloride 96 mmol/L (98-107); Estimated CRCL calculation 89 ml/min; Estimated Glomerular Filt Rate > 60; Glucose 255 mg/dL (75-110); Sodium 133 mmol/L (137-145)
[2019-06-09 07:46] LABS: Glucose Point of Care 251 (65-105)
[2019-06-09] MEDS: POTASSIUM CHLORIDE 20 MEQ TABLET 40 MEQ PO (07:49)
[2019-06-09] MEDS: metFORMIN HCL XR 500 MG TAB.SR.24H 1000 MG PO (07:49)
[2019-06-09] MEDS: ACETAMINOPHEN 325 MG TABLET 650 MG PO ×2 (07:52→19:55)
[2019-06-09] MEDS: INSULIN ASPART (*BKC) 100 UNITS/ML SUB-Q ×3 (09:08→17:13)
[2019-06-09] MEDS: ASPIRIN 325 MG ENTERIC TABLET PO (09:08)
[2019-06-09 09:09] VITALS: PULSE 96
[2019-06-09] MEDS: MEMANTINE 5 MG TABLET PO ×2 (09:09→21:00)
[2019-06-09] MEDS: lisinopriL 20 MG TABLET 40 MG PO (09:09)
[2019-06-09] MEDS: FINASTERIDE 5 MG TABLET PO (09:09)
[2019-06-09] MEDS: METOPROLOL TARTRATE 25 MG TABLET PO ×2 (09:09→21:00)
[2019-06-09] MEDS: SILVERGEL (ELTA) 45 ML 1 APPLIC TOPICAL (09:09)
--- NOTE | 2019-06-09 11:51 | WPDINFPN2 ---
Progress Note: A&P Assessment and Plan (1) UTI (urinary tract infection): Qualifiers: Hematuria presence: without hematuria Urinary tract infection type: site unspecified Qualified Code(s): N39.0 - Urinary tract infection, site not specified Code(s): N39.0 - Urinary tract infection, site not specified Status: Acute Assessment and Plan: 1. fever and leukocytosis, due to ESBL producing UTI. Still symptomatic and WBC still elevated, though trend overall is favorable 2. Dementia REC Imipenem # 3 / 7 days, tolerating Subjective Date/time seen: 06/09/19 11:51 Interval history: his history is very vague today, but he reports voiding symptom. He is very unclear if this is urgency, dysuria, incontinence, or some combination of the above Exam Narrative: Exam Narrative: afebrile, wide pulse pressure ow normal VS Const: General: no acute distress Eyes: General: appearance normal, both eyes and all related structures Resp: Effort & Inspection: normal respiratory effort Auscultation: clear to auscultation bilaterally Cardio: Rate: regular rate Rhythm: regular rhythm Heart sounds: no gallops and no murmurs GI: Inspection: non-distended GI Palp: Yes Soft to palpation and No Tenderness to palpation present (GI) : General: Yes bladder normal to palpation Objective Data Vital Signs Vital Signs: Vital Signs - 24 hr 06/08/19 14:00 06/08/19 21:44 06/08/19 22:15 Temperature 36.1 C L 36.2 C L Pulse Rate 85 90 90 Respiratory Rate 20 18 Blood Pressure 142/46 H 130/60 Pulse Oximetry 97 98 06/09/19 05:54 06/09/19 09:09 Temperature 36.8 C Pulse Rate 77 96 Respiratory Rate 16 Blood Pressure 146/38 H Pulse Oximetry 96 Intake/Output Intake/Output: Intake & Output 06/06/19 06/07/19 06/08/19 06/09/19 23:59 23:59 23:59 23:59 Intake Total 4224 1940 2660 680 Output Total 5606 8776 1075 1000 Balance 8528 -273 9165 -798 Meds/Results Medications: Active Medications Generic Name Dose Route Start Last Admin Trade Name Freq PRN Reason Stop Dose Admin Acetaminophen 650 mg 06/05/19 18:11 06/09/19 07:52 Tylenol Tablet PO 650 mg Q4H PRN Administration Mild Pain (1-3) or Fever Albuterol 2.5 mg 06/08/19 21:16 Albuterol Sulf Neb 2.5mg/0.5ml INHALATION TIDRT PRN Shortness Of Breath Amlodipine Besylate 5 mg 06/08/19 21:00 06/08/19 21:42 Norvasc PO 5 mg HS SHAN Administration Apixaban 5 mg 06/06/19 21:00 06/08/19 08:14 Eliquis PO 5 mg Q12HR SHAN Administration Aspirin 325 mg 06/09/19 09:00 06/09/19 09:08 Aspirin Ec PO 325 mg DAILY SHAN Administration Atorvastatin Calcium 80 mg 06/08/19 21:00 06/08/19 21:43 Lipitor PO 80 mg HS SHAN Administration Dextrose 12.5 gm 06/05/19 19:42 Dextrose 50% Syringe IV PUSH PRN PRN Hypoglycemia Protocol Docusate Sodium 100 mg 06/06/19 17:17 06/08/19 08:14 Colace Capsule PO 100 mg Q12H PRN Administration Constipation Finasteride 5 mg 06/09/19 09:00 06/09/19 09:09 Proscar PO 5 mg DAILY SHAN Administration Gabapentin 300 mg 06/08/19 22:00 06/09/19 05:42 Neurontin PO 300 mg Q8HR SHAN Administration Glucagon 1 mg 06/05/19 19:42 Glucagon For Inj IM PRN PRN Hypoglycemia Protocol Glucose 15 gm 06/05/19 19:42 Glutose 15 PO PRN PRN Hypoglycemia Protocol Dextrose 1,000 mls @ 100 mls/hr 06/05/19 19:42 Dextrose 5% 1,000 Ml IVPB PRN PRN Hypoglycemia Protocol Imipenem/Cilastatin Sodium 250 100 mls @ 300 mls/hr 06/07/19 18:00 06/09/19 06:01 mg/ Dextrose IVPB 06/14/19 18:01 Infused Q6H SHAN Infusion Insulin Aspart 3 - 6 units 06/06/19 08:00 06/09/19 09:08 Novolog SUB-Q 4 units TIDWM SHAN Administration Protocol Insulin Glargine 30 units 06/08/19 21:00 06/08/19 21:46 Lantus SUB-Q 30 units HS SHAN Administration Ipratropium Br
[2019-06-09 12:32] LABS: Glucose Point of Care 284 (65-105)
[2019-06-09 14:00] VITALS: BP 130/34; PULSE 80; RESP 20; TEMP 37.9; O2SAT 100
[2019-06-09 17:13] LABS: Glucose Point of Care 213 (65-105)
[2019-06-09] MEDS: IMIPENEM/CILASTATIN SODIUM 250 MG in DEXTROSE 5% 100 ML 200 MG IVPB (17:24)
--- NOTE | 2019-06-09 17:54 | PM.IMPN ---
Progress Note: A&P Assessment and Plan (1) UTI (urinary tract infection): Qualifiers: Hematuria presence: without hematuria Urinary tract infection type: site unspecified Qualified Code(s): N39.0 - Urinary tract infection, site not specified Code(s): N39.0 - Urinary tract infection, site not specified Status: Acute Assessment and Plan: ESBL UTI susceptible to imipenem. Patient appears to have hesitancy, but otherwise improved clinically ID consulted and greatly appreciate recommendations Continue IV imipenem per ID recommendations. Monitor (2) Sepsis: Qualifiers: Sepsis acute organ dysfunction status: without acute organ dysfunction Sepsis type: sepsis due to unspecified organism Qualified Code(s): A41.9 - Sepsis, unspecified organism Code(s): A41.9 - Sepsis, unspecified organism Status: Acute Assessment and Plan: On arrival patient's temperature was a 102.5?, blood pressure 109/56, tachycardic 103, 100% on room air in leukocytosis of 20,700 which met for sepsis with evidence of UTI. Lactic acid was normal. temp of 100.2 this afternoon, otherwise afebrile Continue imipenem treatment per ID recommendations Await further recommendations from ID. (3) Chronic anemia: Code(s): D64.9 - Anemia, unspecified Status: Chronic Assessment and Plan: Hgb 10.8;stable. Patient's hemoglobin ranges between 10 and 12 normally. With prior hospitalizations last year he was in 8 and 9's with a Hgb of 15.2 in 04/2019, although, possibly falsely elevated. Stool Hemoccult was negative for blood. Iron panel which suggestive of anemia of chronic disease. His vitamin B12 and folic acid were both normal. TSH was slightly low but had a normal free T4. Will have follow-up with his primary care provider with a repeat TSH in 6 weeks. Monitor H&H, transfuse p.r.n. (4) Leukocytosis: Qualifiers: Leukocytosis type: unspecified Qualified Code(s): D72.829 - Elevated white blood cell count, unspecified Code(s): D72.829 - Elevated white blood cell count, unspecified Status: Acute Assessment and Plan: Likely secondary to UTI and sepsis. WBC 11.5K today, slightly elevated, but stable continue to trend tomorrow with treatment of ESBL UTI 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 mellitus fdc insulin use: with long term care pharmacist use Diabetes mellitus complication status: with circulatory complication Diabetes mellitus complication detail: with other circulatory complications Qualified Code(s): E11.59 - Type 2 diabetes mellitus with other circulatory complications; Z79.4 - shelter (current) use of insulin Code(s): E11.9 - Type 2 diabetes mellitus without complications Status: Chronic Assessment and Plan: BGL today was 200s Continue metformin. Increase Lantus to 50 units QHS. Consider increasing if continued to be elevated into 200s Continue Accu-Cheks, sliding scale insulin coverage. Hypoglycemia protocol. (6) Hyperlipidemia: Qualifiers: Hyperlipidemia type: unspecified Qualified Code(s): E78.5 - Hyperlipidemia, unspecified Code(s): E78.5 - Hyperlipidemia, unspecified Status: Chronic Assessment and Plan: Continue Lipitor (7) Dementia: Qualifiers: Dementia type: unspecified type Dementia behavioral disturbance: without behavioral disturbance Qualified Code(s): F03.90 - Unspecified dementia without behavioral disturbance Code(s): F03.90 - Unspecified dementia without behavioral disturbance Status: Chronic Assessment and Plan: Continue memantine __
[2019-06-09 20:42] LABS: Glucose Point of Care 285 (65-105)
[2019-06-09 21:00] VITALS: PULSE 72
[2019-06-09] MEDS: ATORVASTATIN 40 MG TABLET 80 MG PO (21:00)
[2019-06-09] MEDS: AMLODIPINE BESYLATE 5 MG TABLET PO (21:00)
[2019-06-09] MEDS: INSULIN GLARGINE (*BKC) 100 UNITS/ML 50 UNITS SUB-Q (21:02)
[2019-06-09 22:00] VITALS: BP 151/46; PULSE 98; RESP 22; TEMP 37.1; O2SAT 98
[2019-06-10 06:00] VITALS: BP 129/54; PULSE 72; RESP 18; TEMP 36.6; O2SAT 98
[2019-06-10] MEDS: IMIPENEM/CILASTATIN SODIUM 250 MG in DEXTROSE 5% 100 ML 300 MG IVPB ×2 (06:05→12:25)
[2019-06-10] MEDS: GABAPENTIN 300 MG CAPSULE PO ×3 (06:06→21:06)
[2019-06-10 06:07] LABS: Basophils Percent Auto 0.3 % (0.2-1.2); Eosinophils Absolute Auto 0.1 K/mm3 (0-0.3); Hematocrit 33.7 % (42.0-52.0); Hemoglobin 10.7 g/dL (14.0-18.0); Immature Granulocyte Absolute 0.08 K/mm3 (0.00-0.031); Immature Granulocyte Percent A 0.6 % (0-0.5); Lymphocytes Absolute Auto 2.12 K/mm3 (0.9-3.2); Lymphocytes Percent Auto 15.9 % (18.3-44.2); Mean Corpuscular HGB Conc 31.8 g/dl (32-36); Mean Corpuscular Hemoglobin 26.6 pg (26-34); Mean Corpuscular Volume 83.8 fl (80-100); Mean Platelet Volume 10.6 fl (7.4-10.4); Monocytes Absolute Auto 0.9 K/mm3 (0.1-0.6); Neutrophils Absolute Auto 10.1 K/mm3 (1.3-6.7); Neutrophils Percent Auto 75.2 % (45.5-73.1); Platelet Count Result 364 k/mm3 (150-375); Red Blood Count 4.02 M/mm3 (4.6-6.20); Red Cell Distribution Width 16.4 % (11.5-14.5); White Blood Count 13.4 K/mm3 (4.5-10.0)
[2019-06-10 06:16] LABS: Blood Urea Nitrogen 22 mg/dL (9-20); Carbon Dioxide 29 mmol/L (22-30); Chloride 98 mmol/L (98-107); Estimated CRCL calculation 89 ml/min; Estimated Glomerular Filt Rate > 60; Glucose 195 mg/dL (75-110); Magnesium 1.9 mg/dL (1.6-2.3); Potassium 4.1 mmol/L (3.4-5.0); Sodium 136 mmol/L (137-145)
[2019-06-10 08:02] VITALS: PULSE 75
[2019-06-10] MEDS: ASPIRIN 325 MG ENTERIC TABLET PO (08:02)
[2019-06-10] MEDS: FINASTERIDE 5 MG TABLET PO (08:02)
[2019-06-10] MEDS: METOPROLOL TARTRATE 25 MG TABLET PO ×2 (08:02→21:06)
[2019-06-10] MEDS: MEMANTINE 5 MG TABLET PO ×2 (08:02→21:06)
[2019-06-10] MEDS: metFORMIN HCL XR 500 MG TAB.SR.24H 1000 MG PO (08:02)
[2019-06-10] MEDS: lisinopriL 20 MG TABLET 40 MG PO (08:02)
[2019-06-10] MEDS: SILVERGEL (ELTA) 45 ML 1 APPLIC TOPICAL (08:06)
[2019-06-10] MEDS: ACETAMINOPHEN 325 MG TABLET 650 MG PO (08:14)
[2019-06-10 10:28] LABS: Glucose Point of Care 189 (65-105)
[2019-06-10 12:26] LABS: Glucose Point of Care 231 (65-105)
[2019-06-10] MEDS: INSULIN ASPART (*BKC) 100 UNITS/ML SUB-Q (12:26)
[2019-06-10 14:00] VITALS: BP 123/53; PULSE 69; RESP 16; TEMP 36.1; O2SAT 97
--- NOTE | 2019-06-10 15:04 | WPDINFPN2 ---
Progress Note: A&P Assessment and Plan (1) UTI (urinary tract infection): Qualifiers: Hematuria presence: without hematuria Urinary tract infection type: site unspecified Qualified Code(s): N39.0 - Urinary tract infection, site not specified Code(s): N39.0 - Urinary tract infection, site not specified Status: Acute Assessment and Plan: 1. fever and leukocytosis, due to ESBL producing UTI. Improved findings though still with leukocytosis 2. Dementia REC Imipenem # 4, can change to ertapenem for once daily dosing, same stop date --> through 06/14. Midline. Ok to SNF. No blood testing needed for now, repeat WBC in 6-8 days to ensure return to normal Subjective Date/time seen: 06/10/19 15:04 Interval history: no complaints Exam Narrative: Exam Narrative: afebrile Const: General: no acute distress Resp: Effort & Inspection: normal respiratory effort Auscultation: clear to auscultation bilaterally Cardio: Rate: regular rate Rhythm: regular rhythm Heart sounds: no gallops and no murmurs GI: Inspection: non-distended GI Palp: Yes Soft to palpation and No Tenderness to palpation present (GI) Objective Data Vital Signs Vital Signs: Vital Signs - 24 hr 06/09/19 21:00 06/09/19 22:00 06/10/19 06:00 Temperature 37.1 C 36.6 C Pulse Rate 72 98 72 Respiratory Rate 22 H 18 Blood Pressure 151/46 H 129/54 L Pulse Oximetry 98 98 06/10/19 08:02 Temperature Pulse Rate 75 Respiratory Rate Blood Pressure Pulse Oximetry Intake/Output Intake/Output: Intake & Output 06/07/19 06/08/19 06/09/19 06/10/19 23:59 23:59 23:59 23:59 Intake Total 1940 2660 2420 730 Output Total 2575 1075 1400 700 Balance -635 1585 1020 30 Meds/Results Medications: Active Medications Generic Name Dose Route Start Last Admin Trade Name Freq PRN Reason Stop Dose Admin Acetaminophen 650 mg 06/05/19 18:11 06/10/19 08:14 Tylenol Tablet PO 650 mg Q4H PRN Administration Mild Pain (1-3) or Fever Albuterol 2.5 mg 06/08/19 21:16 Albuterol Sulf Neb 2.5mg/0.5ml INHALATION TIDRT PRN Shortness Of Breath Amlodipine Besylate 5 mg 06/08/19 21:00 06/09/19 21:00 Norvasc PO 5 mg HS SHAN Administration Apixaban 5 mg 06/06/19 21:00 06/08/19 08:14 Eliquis PO 5 mg Q12HR SHAN Administration Aspirin 325 mg 06/09/19 09:00 06/10/19 08:02 Aspirin Ec PO 325 mg DAILY SHNA Administration Atorvastatin Calcium 80 mg 06/08/19 21:00 06/09/19 21:00 Lipitor PO 80 mg HS SHAN Administration Dextrose 12.5 gm 06/05/19 19:42 Dextrose 50% Syringe IV PUSH PRN PRN Hypoglycemia Protocol Docusate Sodium 100 mg 06/06/19 17:17 06/08/19 08:14 Colace Capsule PO 100 mg Q12H PRN Administration Constipation Finasteride 5 mg 06/09/19 09:00 06/10/19 08:02 Proscar PO 5 mg DAILY SHAN Administration Gabapentin 300 mg 06/08/19 22:00 06/10/19 13:23 Neurontin PO 300 mg Q8HR SHAN Administration Glucagon 1 mg 06/05/19 19:42 Glucagon For Inj IM PRN PRN Hypoglycemia Protocol Glucose 15 gm 06/05/19 19:42 Glutose 15 PO PRN PRN Hypoglycemia Protocol Dextrose 1,000 mls @ 100 mls/hr 06/05/19 19:42 Dextrose 5% 1,000 Ml IVPB PRN PRN Hypoglycemia Protocol Ertapenem 1 gm in 50 mls @ 100 mls/hr 06/10/19 15:05 Invanz 1 Gm/Ns 50 Ml IVPB 06/14/19 23:59 Q24H [facility] Insulin Aspart 3 - 6 units 06/06/19 08:00 06/10/19 12:26 Novolog SUB-Q 3 units TIDWM SHAN Administration Protocol Insulin Glargine 50 units 06/09/19 21:00 06/09/19 21:02 Lantus SUB-Q 50 units HS SHAN Administration Ipratropium [place] 0.5 mg 06/08/19 21:17 Atrovent Neb INHALATION TIDRT PRN Shortness Of Breath Lidocaine HCl 5 ml 06/10/19 15:00 Xylocaine 1% Local Inj INFILTRATE 06/10/19 15:01 ONCE ONE Lisinopril 40 mg 06/09/19 09:00 02
[2019-06-10] MEDS: ERTAPENEM 1 GM/NS 50 ML 1 GM/50 ML BAG IVPB (17:02)
[2019-06-10 17:11] LABS: Glucose Point of Care 199 (65-105)
[2019-06-10 20:09] LABS: Glucose Point of Care 261 (65-105)
--- NOTE | 2019-06-10 20:16 | PM.IMPN ---
Progress Note: A&P Assessment and Plan (1) UTI (urinary tract infection): Qualifiers: Hematuria presence: without hematuria Urinary tract infection type: site unspecified Qualified Code(s): N39.0 - Urinary tract infection, site not specified Code(s): N39.0 - Urinary tract infection, site not specified Status: Acute Assessment and Plan: ESBL UTI susceptible to imipenem. Clinically had improved. Mild fever yesterday, but has resolved since. Leukocytosis of 13.4K noted ID consulted and greatly appreciate recommendations. Per ID, patient to switch to ertepenem and get a midline for possible discharge tomorrow if NH able to accommodate patient's treatment course Monitor (2) Sepsis: Qualifiers: Sepsis acute organ dysfunction status: without acute organ dysfunction Sepsis type: sepsis due to unspecified organism Qualified Code(s): A41.9 - Sepsis, unspecified organism Code(s): A41.9 - Sepsis, unspecified organism Status: Resolved Assessment and Plan: On arrival patient's temperature was a 102.5?, blood pressure 109/56, tachycardic 103, 100% on room air in leukocytosis of 20,700 which met for sepsis with evidence of UTI. Lactic acid was normal. Continue ertapenem treatment per ID recommendations Await further recommendations from ID. (3) Chronic anemia: Code(s): D64.9 - Anemia, unspecified Status: Chronic Assessment and Plan: Hgb 10.8;stable. Patient's hemoglobin ranges between 10 and 12 normally. With prior hospitalizations last year he was in 8 and 9's with a Hgb of 15.2 in 04/2019, although, possibly falsely elevated. Stool Hemoccult was negative for blood. Iron panel which suggestive of anemia of chronic disease. His vitamin B12 and folic acid were both normal. TSH was slightly low but had a normal free T4. Will have follow-up with his primary care provider with a repeat TSH in 6 weeks. Monitor H&H, transfuse p.r.n. (4) Leukocytosis: Qualifiers: Leukocytosis type: unspecified Qualified Code(s): D72.829 - Elevated white blood cell count, unspecified Code(s): D72.829 - Elevated white blood cell count, unspecified Status: Acute Assessment and Plan: Likely secondary to UTI and sepsis. WBC 13.4K today, slightly elevated, but relatively stable continue to trend tomorrow with treatment of ESBL UTI 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 mellitus terminal gauger insulin use: with jail use Diabetes mellitus complication status: with circulatory complication Diabetes mellitus complication detail: with other circulatory complications Qualified Code(s): E11.59 - Type 2 diabetes mellitus with other circulatory complications; Z79.4 - long term acute care registered nurse (current) use of insulin Code(s): E11.9 - Type 2 diabetes mellitus without complications Status: Chronic Assessment and Plan: BGL today was 180s-260s Continue metformin. Increase Lantus to 60 units QHS. Consider increasing if continued to be elevated into 200s. Patient's home dose is 100 u lantus QHS Continue Accu-Cheks, sliding scale insulin coverage. Hypoglycemia protocol. (6) Hyperlipidemia: Qualifiers: Hyperlipidemia type: unspecified Qualified Code(s): E78.5 - Hyperlipidemia, unspecified Code(s): E78.5 - Hyperlipidemia, unspecified Status: Chronic Assessment and Plan: Continue Lipitor (7) Dementia: Qualifiers: Dementia type: unspecified type Dementia behavioral disturbance: without behavioral disturbance Qualified Code(s): F03.90 - Unspecified dementia without behavioral disturbance Code(s):
[2019-06-10] MEDS: ATORVASTATIN 40 MG TABLET 80 MG PO (21:05)
[2019-06-10 21:06] VITALS: PULSE 85
[2019-06-10] MEDS: AMLODIPINE BESYLATE 5 MG TABLET PO (21:06)
[2019-06-10] MEDS: INSULIN GLARGINE (*BKC) 100 UNITS/ML 60 UNITS SUB-Q (21:08)
[2019-06-10 21:33] VITALS: BP 161/72; PULSE 77; RESP 16; TEMP 35.9; O2SAT 93
[2019-06-11 05:16] LABS: Basophils Percent Auto 0.3 % (0.2-1.2); Eosinophils Absolute Auto 0.2 K/mm3 (0-0.3); Eosinophils Percent Auto 1.1 % (0-4.4); Hematocrit 35.1 % (42.0-52.0); Immature Granulocyte Absolute 0.06 K/mm3 (0.00-0.031); Immature Granulocyte Percent A 0.4 % (0-0.5); Lymphocytes Absolute Auto 2.15 K/mm3 (0.9-3.2); Lymphocytes Percent Auto 15.9 % (18.3-44.2); Mean Corpuscular HGB Conc 31.3 g/dl (32-36); Mean Corpuscular Hemoglobin 26.4 pg (26-34); Mean Corpuscular Volume 84.4 fl (80-100); Mean Platelet Volume 10.3 fl (7.4-10.4); Monocytes Absolute Auto 0.8 K/mm3 (0.1-0.6); Monocytes Percent Auto 6.1 % (2.6-8.5); Neutrophils Absolute Auto 10.3 K/mm3 (1.3-6.7); Neutrophils Percent Auto 76.2 % (45.5-73.1); Platelet Count Result 431 k/mm3 (150-375); Red Blood Count 4.16 M/mm3 (4.6-6.20); Red Cell Distribution Width 16.5 % (11.5-14.5); White Blood Count 13.5 K/mm3 (4.5-10.0)
[2019-06-11 05:36] LABS: Blood Urea Nitrogen 23 mg/dL (9-20); Calcium 9.3 mg/dL (8.4-10.2); Carbon Dioxide 31 mmol/L (22-30); Chloride 96 mmol/L (98-107); Estimated CRCL calculation 89 ml/min; Estimated Glomerular Filt Rate > 60; Glucose 163 mg/dL (75-110); Potassium 4.3 mmol/L (3.4-5.0); Sodium 134 mmol/L (137-145)
[2019-06-11 06:11] VITALS: BP 137/41; PULSE 77; RESP 16; TEMP 36.7; O2SAT 99
[2019-06-11] MEDS: GABAPENTIN 300 MG CAPSULE PO ×2 (06:27→14:51)
[2019-06-11 08:45] LABS: Glucose Point of Care 142 (65-105)
[2019-06-11 08:51] VITALS: PULSE 88
[2019-06-11] MEDS: metFORMIN HCL XR 500 MG TAB.SR.24H 1000 MG PO (08:51)
[2019-06-11] MEDS: ASPIRIN 325 MG ENTERIC TABLET PO (08:51)
[2019-06-11] MEDS: lisinopriL 20 MG TABLET 40 MG PO (08:51)
[2019-06-11] MEDS: FINASTERIDE 5 MG TABLET PO (08:51)
[2019-06-11] MEDS: MEMANTINE 5 MG TABLET PO (08:51)
[2019-06-11] MEDS: METOPROLOL TARTRATE 25 MG TABLET PO (08:51)
[2019-06-11] MEDS: SILVERGEL (ELTA) 45 ML 1 APPLIC TOPICAL (08:52)
--- NOTE | 2019-06-11 09:16 | PM.DS ---
DS: Diagnosis Admitting Diagnosis Admitting Diagnosis: Urinary tract infection, site not specified Discharge Diagnosis (1) UTI (urinary tract infection): Qualifiers: Hematuria presence: without hematuria Urinary tract infection type: site unspecified Qualified Code(s): N39.0 - Urinary tract infection, site not specified Code(s): N39.0 - Urinary tract infection, site not specified Status: Acute Assessment and Plan: ESBL UTI susceptible to imipenem. Clinically has improved. Afebrile, VSS. Leukocytosis of 13.5K noted ID consulted and greatly appreciate recommendations. Per ID, patient switched to ertapenem yesterday and place a midline today for discharge today to [facility] Will discharge after midline placed and daily dose of ertapenem administered; administer through 06/14. CBC in 1 week per ID recommendations Monitor (2) Sepsis: Qualifiers: Sepsis acute organ dysfunction status: without acute organ dysfunction Sepsis type: sepsis due to unspecified organism Qualified Code(s): A41.9 - Sepsis, unspecified organism Code(s): A41.9 - Sepsis, unspecified organism Status: Resolved Assessment and Plan: On arrival patient's temperature was a 102.5?, blood pressure 109/56, tachycardic 103, 100% on room air in leukocytosis of 20,700 which met for sepsis with evidence of UTI. Lactic acid was normal. Continue ertapenem treatment per ID recommendations Await further recommendations from ID. (3) Chronic anemia: Code(s): D64.9 - Anemia, unspecified Status: Chronic Assessment and Plan: Hgb 11.0;stable. Patient's hemoglobin ranges between 10 and 12 normally. With prior hospitalizations last year he was in 8 and 9's with a Hgb of 15.2 in 04/2019, although, possibly falsely elevated. Stool Hemoccult was negative for blood. Iron panel which suggestive of anemia of chronic disease. His vitamin B12 and folic acid were both normal. TSH was slightly low but had a normal free T4. Will have follow-up with his primary care provider with a repeat TSH in 6 weeks. CBC in 1 week Further management per ID physician (4) Leukocytosis: Qualifiers: Leukocytosis type: unspecified Qualified Code(s): D72.829 - Elevated white blood cell count, unspecified Code(s): D72.829 - Elevated white blood cell count, unspecified Status: Acute Assessment and Plan: Likely secondary to UTI and sepsis. WBC 13.5K today, slightly elevated, but relatively stable. 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 Continue Lantus to 60 units QHS at discharge. Will recommend adjusting home dose while at ID per ID recommendations. (6) Hyperlipidemia: Qualifiers: Hyperlipidemia type: unspecified Qualified Code(s): E78.5 - Hyperlipidemia, unspecified Code(s): E78.5 - Hyperlipidemia, unspecified Status: Chronic Assessment and Plan: Continue Lipitor (7) Dementia: Qualifiers: Dementia behavioral disturbance: without behavioral
[2019-06-11] MEDS: LIDOCAINE HCL 1% LOCAL INJ 2 ML AMPUL 5 ML INFILTRATE (09:45)
[2019-06-11] MEDS: ACETAMINOPHEN 325 MG TABLET 650 MG PO (12:24)
[2019-06-11] MEDS: INSULIN ASPART (*BKC) 100 UNITS/ML SUB-Q (12:28)
[2019-06-11 12:56] LABS: Glucose Point of Care 214 (65-105)
[2019-06-11 14:00] VITALS: BP 116/57; PULSE 69; RESP 16; TEMP 36.4; O2SAT 98
[2019-06-11] MEDS: ERTAPENEM 1 GM/NS 50 ML 1 GM/50 ML BAG IVPB (15:16)
[2019-06-11 16:58] LABS: Glucose Point of Care 238 (65-105)
== END 2019-06-11 16:30 | DRG 872 ==
LOC: ANHED 18:16 → ANH2MED 19:25
PROVIDERS: Family Medicine; Internal Medicine Infectious Disease; Physician Assistant; Admitting Provider Family Medicine; Emergency Provider Emergency Medicine; PCP Family Medicine; Visit Provider Physician Assistant
DX: A41.9 Sepsis, unspecified organism (principal); N39.0 Urinary tract infection, site not specified; B96.20 Unspecified Escherichia coli [E. coli] as the cause of diseases classified elsewhere; I11.0 Hypertensive heart disease with heart failure; I50.9 Heart failure, unspecified; E11.51 Type 2 diabetes mellitus with diabetic peripheral angiopathy without gangrene; E11.59 Type 2 diabetes mellitus with other circulatory complications; N40.0 Benign prostatic hyperplasia without lower urinary tract symptoms; D63.8 Anemia in other chronic diseases classified elsewhere; D72.829 Elevated white blood cell count, unspecified; E78.5 Hyperlipidemia, unspecified; F03.90 Unspecified dementia, unspecified severity, without behavioral disturbance, psychotic disturbance, mood disturbance, and anxiety; I25.10 Atherosclerotic heart disease of native coronary artery without angina pectoris; F32.9 Major depressive disorder, single episode, unspecified; F17.210 Nicotine dependence, cigarettes, uncomplicated; Z79.4 Long term (current) use of insulin; Z89.512 Acquired absence of left leg below knee; Z89.511 Acquired absence of right leg below knee; Z95.5 Presence of coronary angioplasty implant and graft
CPT/HCPCS: 36415; 36569; 51701; 71046; 80048; 80053; 81001; 82274; 82607; 82728; 82746; 83540; 83550; 83605; 83735; 84439; 84443; 84466; 84480; 85025; 85610; 85730; 86140; 87040; 87077; 87081; 87086; 87088; 87186; 87804; 96365; 99285; A9270; C1751; J0692; J0696; J0743; J1335; J1650; J1815; J3370; J7030; J7120

== ENCOUNTER 2019-06-12 20:23 | Inpatient (IN) | payer MEDICARE, OTHER, MEDICAID, SELFPAY ==
--- NOTE | ~2019-06-12 | CT_ITS ---
EXAMINATION: CT brain wo con INDICATION: Head injury COMPARISON: 12/02/2018 TECHNIQUE: Standard unenhanced head CT. The dose-length product (DLP) was 605.33 mGy-cm. The mA was a djusted according to patient size. Iterative reconstruction technique was employed. FINDINGS: A left frontal scalp hematoma is noted. There is no acute intraparenchymal hemorrhage. No e vidence of mass lesion. No evidence of acute infarction. There is moderate periventricular and subcor tical hypodensity probably related to small vessel ischemic disease. There is moderate prominence of the sulci and ventricles related to cerebral atrophy. Intracranial calcified cerebral atherosclerosis is noted. There are no extra-axial collections. There is no mass effect or midline shift. The orbits and soft tissues are unremarkable. There is mild mucosal thickening of the paranasal sinuses. IMPRESSION: 1. Left frontal scalp hematoma without acute intracranial abnormality. 2. Age related findings. Reviewed, dictated and finalized at location A. SCREW MAN
--- NOTE | ~2019-06-12 | US_ITS ---
EXAMINATION: US carotid duplex BI DATE: 06/13/2019 14:03 INDICATION: Syncope. Prior bilateral carotid endarterectomies. Cerebral atherosclerosis. TECHNIQUE: Grayscale, color Doppler, and pulsed Doppler images of the cervical carotid arteries were obtained. The degree of vessel stenosis is placed in one of the following categories: normal, <50%, 5 0-69%, >=70% but less than near-occlusion, near-occlusion, or total occlusion. Note that percent sten osis relative to normal distal artery lumen diameter is indirectly measured from velocity measurement s as described by Dwight, et al. Radiology 2003; 229:[id number]. COMPARISON: None. FINDINGS: RIGHT: The right common carotid artery (CCA) peak systolic velocity (PSV) is 63 cm/s. The right internal car otid artery (ICA) PSV is 80 cm/s. The right ICA end-diastolic velocity (EDV) is 27 cm/s. The right IC A/CCA PSV ratio is 1.3. Grayscale and color Doppler images yield an estimate of <50% diameter reducti on from plaque in the ICA. The external carotid artery (ECA) PSV is 103 cm/s. There is antegrade flow in the right vertebral artery. LEFT: The left CCA PSV is 80 cm/s. The left ICA PSV is 101 cm/s. The left ICA EDV is 14 cm/s. The left ICA/ CCA PSV ratio is 1.3. Grayscale and color Doppler images yield an estimate of <50% diameter reduction from plaque in the ICA. The ECA PSV is 117 cm/s. There is antegrade flow in the left vertebral arter y. IMPRESSION: 1. <50% stenosis in the right internal carotid artery. 2. <50% stenosis in the left internal carotid artery. Reviewed, dictated and finalized at location A. TS INSTRUCTOR
[2019-06-12 20:22] VITALS: BP 109/40; PULSE 87; RESP 20; TEMP 37.4; O2SAT 97
--- NOTE | 2019-06-12 20:33 | ED.FALL ---
HPI - Fall General Chief Complaint: Fall Stated Complaint: fall from W/C Time Seen by Provider: 06/12/19 20:33 Source: patient, EMS and RN notes reviewed Mode of arrival: EMS Limitations: dementia History of Present Illness HPI Narrative: Pt is a 73 y/o male who presents to the ED via EMS from [facility] with c/o fall happening this evening. He notes that he was just discharged home from [facility] yesterday. Pt states that he was sitting in his wheelchair this evening when he suddenly fell to the ground. He states that he struck the lt side of his head during the fall. According to EMS, the pt complained of bilateral hip pain while in route to the ED. He notes that he is currently taking a blood thinner, but states that he is unsure of what the medication is for. HPI limited due to pt's dementia. MD complaint: fall Fall from: wheelchair Place fall occurred: halfway/SNF Loss of consciousness: unsure Location of injury: head Associated symptoms (after fall): other (bilateral hip pain) Related Data Home Medications Medication Instructions Recorded Confirmed Poly-Iron 150 Forte 1 cap PO BID 06/05/19 06/05/19 acetaminophen 1,000 mg PO Q4H PRN 06/05/19 06/05/19 alogliptin 25 mg PO DAILY 06/05/19 06/05/19 amlodipine 5 mg PO HS 06/05/19 06/05/19 aspirin 325 mg PO DAILY 06/05/19 06/05/19 atorvastatin 80 mg PO HS 06/05/19 06/05/19 cholecalciferol (vitamin D3) 1,000 unit PO DAILY 06/05/19 06/05/19 dicyclomine 20 mg PO QID 06/05/19 06/05/19 finasteride 5 mg PO DAILY 06/05/19 06/05/19 furosemide 20 mg PO DAILY 06/05/19 06/05/19 gabapentin 300 mg PO TID 06/05/19 06/05/19 insulin aspart U-100 [Novolog 1 sliding scale dose SUBCUT 06/05/19 06/05/19 U-100 Insulin aspart] USEASDIRECTD ipratropium-albuterol 3 ml INHALATION TID PRN 06/05/19 06/05/19 lisinopril 40 mg PO DAILY 06/05/19 06/05/19 memantine [Namenda] 5 mg PO BID 06/05/19 06/05/19 metformin 1,000 mg PO DAILY 06/05/19 06/05/19 metoprolol tartrate 25 mg PO BID 06/05/19 06/05/19 ondansetron 4 mg PO Q6H PRN 06/05/19 06/05/19 oxycodone 5 mg PO BID PRN 06/05/19 06/05/19 simethicone 125 mg PO QID 06/05/19 06/05/19 Allergies Allergy/AdvReac Type Severity Reaction Status Date / Time shrimp Allergy Mild Unknown Verified 06/05/19 16:52 sulfamethoxazole Allergy Unknown Verified 06/05/19 16:50 [From Bactrim] trimethoprim [From Bactrim] Allergy Unknown Verified 06/05/19 16:50 Review of Systems Review of Systems: Narrative: ROS limited due to pt's dementia. Musculoskeletal: Musculoskeletal: Reports arthralgias (bilateral hip pain) Neurologic: Reports other (head injury) PMFSH Past Medical History Medical History 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 Anemia BPH (benign prostatic hyperplasia) CAD (coronary artery disease) Carotid stenosis CHF (congestive heart failure) Dementia Depression Diabetes Hip fracture requiring operative repair Hyperlipidemia Hypertension Hypothyroidism MRSA (methicillin resistant staph aureus) culture positive Osteoarthritis PAD (peripheral artery disease) UTI (urinary tract infection) Surgical History Surgical History H/O cardiac catheterization History of below-knee amputation of both lower extremities History of coronary artery stent placement Social History Social History Smoking status: Current every day smoker Tobacco type: cigars Alcohol intake: unknown Substance use: unknown Substance use type: does not use Gender identity (if verbalized by the patient): Male Spiritual care concerns: No Agree to blood products: Yes Exam Narrative: Exam Narrative: GENERAL: Well-appearing, well-nourished, and in no acute distress. HEAD: Normocephalic, soft tissue swelling to forehead. Overlying bruise. EY
[2019-06-12 20:53] LABS: Basophils Absolute Auto 0.1 K/mm3 (0.0-0.1); Basophils Percent Auto 0.2 % (0.2-1.2); Eosinophils Absolute Auto 0.1 K/mm3 (0-0.3); Eosinophils Percent Auto 0.3 % (0-4.4); Hematocrit 31.5 % (42.0-52.0); Immature Granulocyte Absolute 0.16 K/mm3 (0.00-0.031); Immature Granulocyte Percent A 0.8 % (0-0.5); Lymphocytes Absolute Auto 1.21 K/mm3 (0.9-3.2); Lymphocytes Percent Auto 5.7 % (18.3-44.2); Mean Corpuscular HGB Conc 31.7 g/dl (32-36); Mean Corpuscular Hemoglobin 26.7 pg (26-34); Mean Platelet Volume 10.2 fl (7.4-10.4); Monocytes Absolute Auto 1.2 K/mm3 (0.1-0.6); Monocytes Percent Auto 5.5 % (2.6-8.5); Neutrophils Absolute Auto 18.6 K/mm3 (1.3-6.7); Neutrophils Percent Auto 87.5 % (45.5-73.1); Platelet Count Result 387 k/mm3 (150-375); Red Blood Count 3.75 M/mm3 (4.6-6.20); Red Cell Distribution Width 16.6 % (11.5-14.5); White Blood Count 21.3 K/mm3 (4.5-10.0)
[2019-06-12 21:04] LABS: Blood Urea Nitrogen 34 mg/dL (9-20); Carbon Dioxide 27 mmol/L (22-30); Chloride 94 mmol/L (98-107); Estimated Glomerular Filt Rate > 60; Glucose 281 mg/dL (75-110); Potassium 4.8 mmol/L (3.4-5.0); Sodium 133 mmol/L (137-145)
[2019-06-12 21:25] VITALS: BP 90/39; PULSE 83; RESP 20; O2SAT 95
--- NOTE | 2019-06-12 21:25 | PC.NURSE ---
Dr Hua made aware of patient's BP, verbal order for NS given.
[2019-06-12] MEDS: SODIUM CHLORIDE 0.9% IV 1,000 ML 999 ML IV CONT (21:29)
[2019-06-12 21:34] LABS: Alanine Aminotransferase 15 U/L (4-50); Albumin Level 3.1 g/dL (3.5-5.1); Alkaline Phosphatase 62 U/L (38-126); Aspartate Amino Transferase 21 U/L (17-59); Bilirubin,Total 0.4 mg/dL (0.2-1.3); Lipase 94 U/L (23-300)
--- NOTE | 2019-06-12 21:41 | PC.NURSE ---
Patient attempting to urinate, notified we will have to straight cath for urine if unsuccessful.
[2019-06-12 21:45] LABS: Lactic Acid Reflex 1.8 mmol/L (0.7-2.1)
[2019-06-12 22:15] LABS: Add Urine Microscopic? YES; Appearance Urine Clear (Clear); Bacteria Urine Trace /hpf; Bilirubin Urine Negative (Negative); Blood Urine Negative (Negative); Color Urine Yellow (Yellow); Glucose Urine UA 2+ mg/dL (Negative); Ketones Urine Negative (Negative); Leukocyte Esterase Ur Trace LEU/UL (Negative); Nitrate Urine Negative (Negative); Protein Urine Negative (Negative); Specific Grav Ur 1.017 (1.001-1.035); Squamous Epithelial Cell Urine Occasional /hpf (Few); Urobilinogen Urine Negative mg/dL (<2.0)
[2019-06-12 23:10] VITALS: BP 105/43; PULSE 84; RESP 17; O2SAT 97
[2019-06-13] VITALS (10 sets, daily range): BP systolic 110–119; BP diastolic 45–55; PULSE 63–83; RESP 12–20; TEMP 36.2–36.4; O2SAT 97–100; BMI 36.1
[2019-06-13] MEDS: SODIUM CHLORIDE 0.9% IV 1,000 ML 125 ML IV CONT ×2 (01:22→08:47)
--- NOTE | 2019-06-13 02:22 | PM.IMHP ---
H&P: HPI History of Present Illness Chief complaint: Passed out in his wheelchair yesterday++ Narrative: This is a 73 year old Diabetic male with bilateral BKAs known to me from a recent hospitalization who just was discharged to the [facility] two days ago after being treated for a urinary tract infection and who returned to the hospital tonight after passing out while seated in his wheelchair. Apparently he passed out briefly and fell forward striking the left side of his head on the ground. He doesn't remember what happened when he passed out and states that one moment he was sitting in his wheelchair and the next moment he was on the ground. The patient had reported to the ER provider that he was taking a blood thinner but it does not appear that he was discharged on any anticoagulants and his current home meds from the shelter do not include any anticoagulants. Tonight the patient denies any headache, neck pain or stiffness, fevers, chest pain, cough, sore throat, shortness of breath, cough, abdominal pain, dysuria, hematuria or diarrhea. The patient was evaluted in the ER and found to have worsening leukocytosis of 21,300. Urinalysis is unremarkable tonight. The patient was just started 2 days ago on Invanz for outpatient therapy of ESBL e. coli. No other complaints tonight. 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 Anemia BPH (benign prostatic hyperplasia) CAD (coronary artery disease) Carotid stenosis CHF (congestive heart failure) Dementia Depression Diabetes Hip fracture requiring operative repair Hyperlipidemia Hypertension Hypothyroidism MRSA (methicillin resistant staph aureus) culture positive Osteoarthritis PAD (peripheral artery disease) UTI (urinary tract infection) Surgical History Surgical History H/O cardiac catheterization History of below-knee amputation of both lower extremities History of coronary artery stent placement Family History Family History Father AA (alcohol abuse) Sibling Breast cancer Mother Ovarian cancer Social History Social History Smoking status: Current every day smoker Tobacco type: cigars Alcohol intake: former Substance use: unknown Substance use type: does not use Gender identity (if verbalized by the patient): Male Spiritual care concerns: No Agree to blood products: Yes Meds Home Medications and Allergies Home Medications Medication Instructions Recorded Confirmed Type Poly-Iron 150 Forte 1 cap PO BID 06/05/19 06/13/19 History acetaminophen 1,000 mg PO Q4H PRN 06/05/19 06/13/19 History alogliptin 25 mg PO DAILY 06/05/19 06/13/19 History amlodipine 5 mg PO HS 06/05/19 06/13/19 History aspirin 325 mg PO DAILY 06/05/19 06/13/19 History atorvastatin 80 mg PO HS 06/05/19 06/13/19 History cholecalciferol (vitamin D3) 1,000 unit PO DAILY 06/05/19 06/13/19 History dicyclomine 20 mg PO QID 06/05/19 06/13/19 History finasteride 5 mg PO DAILY 06/05/19 06/13/19 History furosemide 20 mg PO DAILY 06/05/19 06/13/19 History gabapentin 300 mg PO TID 06/05/19 06/13/19 History insulin aspart U-100 [Novolog 1 sliding scale dose SUBCUT 06/05/19 06/13/19 History U-100 Insulin aspart] USEASDIRECTD ipratropium-albuterol 3 ml INHALATION TID PRN 06/05/19 06/13/19 History lisinopril 40 mg PO DAILY 06/05/19 06/13/19 History memantine [Namenda] 5 mg PO BID 06/05/19 06/13/19 History metformin 1,000 mg PO DAILY 06/05/19 06/13/19 History metoprolol tartrate 25 mg PO BID 06/05/19 06/13/19 History ondansetron 4 mg PO Q6H PRN 06/05/19
[2019-06-13] MEDS: CHOLECALCIFEROL 1,000 UNIT TABLET 1000 UNITS PO (08:40)
[2019-06-13] MEDS: FUROSEMIDE 20 MG TABLET PO (08:40)
[2019-06-13] MEDS: GABAPENTIN 300 MG CAPSULE PO ×3 (08:40→17:17)
[2019-06-13] MEDS: ASPIRIN 325 MG ENTERIC TABLET PO (08:41)
[2019-06-13] MEDS: FINASTERIDE 5 MG TABLET PO (08:41)
[2019-06-13] MEDS: lisinopriL 20 MG TABLET 40 MG PO (08:41)
[2019-06-13] MEDS: POLYSACCHARIDE IRON COMPLEX 150 MG CAPSULE PO ×2 (08:42→17:17)
[2019-06-13] MEDS: METOPROLOL TARTRATE 25 MG TABLET PO ×2 (08:42→17:18)
[2019-06-13] MEDS: MEMANTINE 5 MG TABLET PO ×2 (08:43→17:17)
[2019-06-13] MEDS: SIMETHICONE 125 MG CHEW TAB PO ×4 (08:47→20:50)
[2019-06-13] MEDS: ENOXAPARIN 40 MG/0.4 ML SYRINGE SUB-Q (08:47)
[2019-06-13 08:51] LABS: Glucose Point of Care 161 (65-105)
[2019-06-13] MEDS: ACETAMINOPHEN 500 MG TABLET 1000 MG PO (08:51)
--- NOTE | 2019-06-13 10:50 | PM.CNGS ---
Assessment and Plan Assessment and plan (1) Decubitus ulcer of left ischium, unstageable: Code(s): L89.320 - Pressure ulcer of left buttock, unstageable Status: Acute Assessment and Plan: Will need to debride in the operating room. Placed dry bulky gauze dressing for now. Will arrange to do this week, hopefully tomorrow. (2) Cellulitis and abscess of buttock: Code(s): L02.31 - Cutaneous abscess of buttock; L03.317 - Cellulitis of buttock Status: Acute Assessment and Plan: Draining but will need debridement and wound care. Probably has decubitus from sitting in his wheelchair. (3) UTI due to extended-spectrum beta lactamase (ESBL) producing Escherichia coli: Code(s): N39.0 - Urinary tract infection, site not specified; B96.29 - Other Escherichia coli [E. coli] as the cause of diseases classified elsewhere; Z16.12 - Extended spectrum beta lactamase (ESBL) resistance Status: Chronic Assessment and Plan: Management per Infectious Disease and hospitalist service. History of Present Illness Consult details Consult date: 06/13/19 Reason for consult: other ( Left buttock abscess) Narrative: patient is a 73-year-old diabetic man with bilateral below-knee amputations. He resides at [facility]. He was discharged from [facility] about 2 days ago for a complicated urinary tract infection. At the long term, yesterday, he passed out briefly and fell forward striking left side of his head on the ground. Fortunately it does not appear he has any head or neck injuries. He came to the emergency room and has been readmitted. [place] [address]. He was noted on physical exam to have a left buttock abscess draining purulent fluid. I was asked to see the patient regarding this problem and surgical treatment. The patient is not really complaining of this but when asked does say that it has been bothersome for him.. He does not know how long it has been draining. Review of Systems Review of Systems: All systems reviewed & are unremarkable except as noted in HPI and below Constitutional: Constitutional: Denies chills, Denies fever(s) and Denies headache(s) ENT: Denies headache(s) Cardiovascular: Cardiovascular: Denies chest pain and Denies dyspnea Respiratory: Respiratory: Denies cough and Denies dyspnea Genitourinary: Comments: admitted June 05, 2019 with ESBL UTI and sepsis. Patient had fever to 102.5 on admission. improved and was discharged with midline catheter on ertapenem back to [facility]. 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 Anemia BPH (benign prostatic hyperplasia) CAD (coronary artery disease) Carotid stenosis CHF (congestive heart failure) Dementia Depression Diabetes Hip fracture requiring operative repair Hyperlipidemia Hypertension Hypothyroidism MRSA (methicillin resistant staph aureus) culture positive Osteoarthritis PAD (peripheral artery disease) UTI (urinary tract infection) Surgical History Surgical History H/O cardiac catheterization History of below-knee amputation of both lower extremities History of coronary artery stent placement Family History Family History Father AA (alcohol abuse) Sibling Breast cancer Mother Ovarian cancer Social History Social History Smoking status: Current every day smoker Tobacco type: cigars Alcohol intake: f
[2019-06-13 12:55] LABS: Glucose Point of Care 188 (65-105)
--- NOTE | 2019-06-13 15:38 | PM.IMPN ---
Progress Note: A&P Assessment and Plan (1) Cellulitis and abscess of buttock: Code(s): L02.31 - Cutaneous abscess of buttock; L03.317 - Cellulitis of buttock Status: Acute Assessment and Plan: Surgery consulted and appreciate recommendations. He will likely go for a debridement tomorrow per Surgery. Wound and Blood cultures pending. Gram stain shows many WBC and few gram positive cocci in clusters. Continue Vanc and ertapenem Dr. Glass has been consulted as well and appreciate input (2) UTI due to extended-spectrum beta lactamase (ESBL) producing Escherichia coli: Code(s): N39.0 - Urinary tract infection, site not specified; B96.29 - Other Escherichia coli [E. coli] as the cause of diseases classified elsewhere; Z16.12 - Extended spectrum beta lactamase (ESBL) resistance Status: Chronic Assessment and Plan: The patient is being treated w/ Invanz for ESBL e. coli UTI. No urinary symptoms today Continue Invanz therapy; this is scheduled to end on 06/14 Dr. Glass consulted and appreciate recommendations. (3) Syncope and collapse: Code(s): R55 - Syncope and collapse Status: Acute Assessment and Plan: Patient tells me he did not lose consciousness and that he lost balance shifting in his chair and fell. Carotids negative today. CT unremarkable for bleed. Patient had a short run of Vtach for 6 beats this afternoon, however patient asymptomatic; several pauses noted as well; otherise sinus rhythm. Echo to be performed tomorrow. Given Vtach, continue Telemetry for now, Fall precautions, Neurochecks D/c IVF as patient has adequate PO intake Monitor (4) Leukocytosis: Qualifiers: Leukocytosis type: unspecified Qualified Code(s): D72.829 - Elevated white blood cell count, unspecified Code(s): D72.829 - Elevated white blood cell count, unspecified Status: Deleted Assessment and Plan: Worsening leukocytosis appears to be secondary to cellulitis w/ furunculosis and possible UTI Monitor CBCd. (5) Chronic anemia: Code(s): D64.9 - Anemia, unspecified Status: Chronic Assessment and Plan: Stable, No signs of acute blood loss. Monitor H/H Transfuse prn. 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: with fdc use Diabetes mellitus complication status: with circulatory complication Diabetes mellitus complication detail: with other circulatory complications Qualified Code(s): E11.59 - Type 2 diabetes mellitus with other circulatory complications; Z79.4 - long-term (current) use of insulin Code(s): E11.9 - Type 2 diabetes mellitus without complications Status: Chronic Assessment and Plan: BGL 100s today Accuchecks, SSI Coverage, Hypoglycemic protocol Continue Lantus 60 units and metformin (7) Hyperlipidemia: Qualifiers: Hyperlipidemia type: unspecified Qualified Code(s): E78.5 - Hyperlipidemia, unspecified Code(s): E78.5 - Hyperlipidemia, unspecified Status: Chronic Assessment and Plan: Continue atorvastatin PO. (8) Dementia: Qualifiers: Dementia type: unspecified type Dementia behavioral disturbance: without behavioral disturbance Qualified Code(s): F03.90 - Unspecified dementia without behavioral disturbance Code(s): F03.90 - Unspecified dementia without behavioral disturbance Status: Chronic Assessment and Plan: Continue Namenda (9) CAD (coronary artery disease): Qualifiers: Coronary Disease-Associated Artery/Lesion type: unspecified vessel or lesion type
--- NOTE | 2019-06-13 15:38 | WPDANESEPP ---
Anes - Eval Pre Procedure Procedure: debride ulcer buttock Date/Time: 06/13/19 15:38 Surgeon: mahin Preop Diagnosis: ulcer buttocks Pre Op Diagnosis: Passed out in his wheelchair yesterday++ Patient Data Age: 73 Gender: M Height: 1.52 m Weight: 84 kg Last Vital Signs Temp 36.2 C L 06/13/19 01:38 Pulse 64 06/13/19 12:00 Resp 20 06/13/19 08:00 BP 110/51 L 06/13/19 01:38 Pulse Ox 97 06/13/19 08:00 Allergies Allergy/AdvReac Type Severity Reaction Status Date / Time shrimp Allergy Mild Unknown Verified 06/05/19 16:52 sulfamethoxazole Allergy Unknown Verified 06/05/19 16:50 [From Bactrim] trimethoprim [From Bactrim] Allergy Unknown Verified 06/05/19 16:50 Home Medications Medication Instructions Recorded Confirmed Type Poly-Iron 150 Forte 1 cap PO BID 06/05/19 06/13/19 History acetaminophen 1,000 mg PO Q4H PRN 06/05/19 06/13/19 History alogliptin 25 mg PO DAILY 06/05/19 06/13/19 History amlodipine 5 mg PO HS 06/05/19 06/13/19 History aspirin 325 mg PO DAILY 06/05/19 06/13/19 History atorvastatin 80 mg PO HS 06/05/19 06/13/19 History cholecalciferol (vitamin D3) 1,000 unit PO DAILY 06/05/19 06/13/19 History dicyclomine 20 mg PO QID 06/05/19 06/13/19 History finasteride 5 mg PO DAILY 06/05/19 06/13/19 History furosemide 20 mg PO DAILY 06/05/19 06/13/19 History gabapentin 300 mg PO TID 06/05/19 06/13/19 History insulin aspart U-100 [Novolog 1 sliding scale dose SUBCUT 06/05/19 06/13/19 History U-100 Insulin aspart] USEASDIRECTD ipratropium-albuterol 3 ml INHALATION TID PRN 06/05/19 06/13/19 History lisinopril 40 mg PO DAILY 06/05/19 06/13/19 History memantine [Namenda] 5 mg PO BID 06/05/19 06/13/19 History metformin 1,000 mg PO DAILY 06/05/19 06/13/19 History metoprolol tartrate 25 mg PO BID 06/05/19 06/13/19 History ondansetron 4 mg PO Q6H PRN 06/05/19 06/13/19 History oxycodone 5 mg PO BID PRN 06/05/19 06/13/19 History simethicone 125 mg PO QID 06/05/19 06/13/19 History Lantus U-100 Insulin 60 unit SUBCUT HS #0 ml 06/11/19 06/13/19 Rx ertapenem [Invanz] 1 g IV .Daily at 1600 #3 each 06/11/19 06/13/19 Rx Laboratory Tests 06/12/19 06/12/19 06/12/19 20:46 20:46 20:46 WBC 21.3 K/mm3 H K/mm3 (4.5-10.0) RBC 3.75 M/mm3 L M/mm3 (4.6-6.20) Hgb 10.0 g/dL L g/dL (14.0-18.0) Hct 31.5 % L % (42.0-52.0) MCV 84.0 fl fl (80-100) MCH 26.7 pg pg (26-34) MCHC 31.7 g/dl L g/dl (32-36) RDW 16.6 % H % (11.5-14.5) Plt Count 387 k/mm3 H k/mm3 (150-375) MPV 10.2 fl fl (7.4-10.4) Immature Gran % (Auto) 0.8 % H % (0-0.5) Neut % (Auto) 87.5 % H % (45.5-73.1) Lymph % (Auto) 5.7 % L % (18.3-44.2) [place] % (Auto) 5.5 % % (2.6-8.5) Eos % (Auto) 0.3 % % (0-4.4) Baso % (Auto) 0.2 % % (0.2-1.2) Lymph # (Auto) 1.21 K/mm3 K/mm3 (0.9-3.2) [place] # (Auto) 1.2 K/mm3 H K/mm3 (0.1-0.6) Eos # (Auto) 0.1 K/mm3 K/mm3 (0-0.3) Baso # (Auto) 0.1 K/mm3 K/mm3 (0.0-0.1) Abs Immat Gran (auto) 0.16 K/mm3 H K/mm3 (0.00-0.031) Absolute Neuts (auto) 18.6 K/mm3 H K/mm3 (1.3-6.7) Absolute Nucleated RBC 0.0 K/mm3 K/mm3 (0.0-0.012) Nucleated RBC % 0.0 % % (0.0-0.2) Sodium 133 mmol/L L mmol/L (137-145) Potassium 4.8 mmol/L mmol/L (3.4-5.0) Chloride 94 mmol/L L mmol/L (98-107) Carbon Dioxide 27 mmol/L mmol/L (22-30) BUN 34 mg/dL H D mg/dL (9-20) Creatinine 0.80 mg/dL mg/dL (0.7-1.3) Estim Creat Clear Calc Not Reportable Estimated GFR > 60 (59 - ) Glucose 281 mg/dL H mg/dL (75-110) POC Capillary Glucose Lactic Acid Calcium 9.0 mg/dL mg/dL (8.4-10.2) Total Bilirubin 0.4 mg/dL mg/dL (0.2-1.3) Direct Bilirubin 0.0 mg/dL
[2019-06-13] MEDS: ERTAPENEM 1 GM/NS 50 ML 1 GM/50 ML BAG IVPB (16:01)
[2019-06-13 17:24] LABS: Glucose Point of Care 186 (65-105)
--- NOTE | 2019-06-13 20:00 | PC.NURSE ---
Pt says he will ask his brother in law to bring his medication from home.
[2019-06-13] MEDS: AMLODIPINE BESYLATE 5 MG TABLET PO (20:50)
[2019-06-13] MEDS: ATORVASTATIN 40 MG TABLET 80 MG PO (20:50)
[2019-06-13] MEDS: ACETAMINOPHEN 325 MG TABLET 650 MG PO (20:53)
[2019-06-13] MEDS: INSULIN GLARGINE (*BKC) 100 UNITS/ML 60 UNITS SUB-Q (20:55)
[2019-06-13 20:58] LABS: Glucose Point of Care 227 (65-105)
[2019-06-14] VITALS (13 sets, daily range): BP systolic 102–164; BP diastolic 50–81; PULSE 51–86; RESP 14–19; TEMP 35.6–36.6; O2SAT 94–100
--- NOTE | 2019-06-14 02:36 | ECHO_ITS ---
Patient Info Name: Alfredo Cody Age: 73 years : 1945 Gender: Male Ht: 60 in Wt: 185 lbs BSA: 1.93 m2 HR: 75 bpm BP: 130 / 58 mmHg Heart Rhythm: Sinus Rhythm Technical Quality: Fair Exam Date: 06/14/2019 9:17 AM Exam Location: [facility] Card Pulmonary Patient Status: Inpatient Admit Date: 06/13/2019 Staff Ordering Physician: Brian Sarmiento MD Energy Sales Broker: Rick Roth RDCS Attending Provider: Kamran Phan PA-C Referring Physician: JUAN MISTRY REHAB ; Exam Type: CA echo doppler color flow Study Info Indications R55 - Syncope and collapse Complete two-dimensional, color flow and Doppler transthoracic echocardiogram is performed. History/Risk Factors Syncope; CAD, CHF, DM, HTN. Summary 1. Left ventricular chamber dimension is normal. 2. Left ventricular systolic function is normal, estimated at 55-60%. 3. There is mildly increased left ventricular wall thickness. 4. The left ventricular diastolic function is abnormal. 5. E/e' 14 is mildly elevated. 6. Left atrial chamber dimension is mildly enlarged. 7. There is moderate aortic valve sclerosis. 8. No pulmonary hypertension, estimated pulmonary arterial systolic pressure is 31 mmHg. Left Ventricle E/e' 14 is mildly elevated. Left ventricular chamber dimension is normal. Left ventricular systolic function is normal, estimated at 55-60%. There is mildly increased left ventricular wall thickness. The left ventricular diastolic function is abnormal. Right Ventricle Right ventricular chamber dimension is not well visualized. Left Atria Left atrial chamber dimension is mildly enlarged. Right Atria Right atrial chamber dimension is not well visualized. Aortic Valve The aortic valve is trileaflet. There is moderate aortic valve sclerosis. There is no aortic valve stenosis. There is no aortic valve regurgitation. Pulmonic Valve There is no pulmonic regurgitation. Mitral Valve There is no mitral valve stenosis. There is no mitral valve regurgitation. Tricuspid Valve There is no tricuspid valve regurgitation. No pulmonary hypertension, estimated pulmonary arterial systolic pressure is 31 mmHg. Pericardium/Pleural There is small circumferential pericardial effusion. Inferior Vena Cava Normal inferior vena cava with >50% collapse upon inspiration consistent with normal right atrial pressure, 5 mmHg. Aorta The aortic root size at the sinus of Valsalva is normal. Left Ventricular Outflow Tract Name Value Normal LVOT 2D LVOT Diameter 2.2 cm LVOT Doppler LVOT Peak Gradient 5 mmHg LVOT Mean Gradient 3 mmHg LVOT VTI 23 cm LVOT VTI/AV VTI Ratio 0.6 LVOT Stroke Volume 83 ml LVOT CO 6.0 l/min LVOT CI 3.1 l/min/m2 Mitral Valve Name Value Normal
[2019-06-14 07:38] LABS: Blood Urea Nitrogen 14 mg/dL (9-20); Calcium 8.6 mg/dL (8.4-10.2); Carbon Dioxide 29 mmol/L (22-30); Chloride 98 mmol/L (98-107); Estimated CRCL calculation 86 ml/min; Estimated Glomerular Filt Rate > 60; Glucose 125 mg/dL (75-110); Magnesium 1.8 mg/dL (1.6-2.3); Potassium 4.1 mmol/L (3.4-5.0); Sodium 137 mmol/L (137-145)
[2019-06-14 07:40] LABS: Basophils Percent Auto 0.4 % (0.2-1.2); Eosinophils Absolute Auto 0.1 K/mm3 (0-0.3); Eosinophils Percent Auto 1.4 % (0-4.4); Hematocrit 32.4 % (42.0-52.0); Hemoglobin 10.2 g/dL (14.0-18.0); Immature Granulocyte Absolute 0.04 K/mm3 (0.00-0.031); Immature Granulocyte Percent A 0.4 % (0-0.5); Lymphocytes Absolute Auto 2.26 K/mm3 (0.9-3.2); Lymphocytes Percent Auto 24.3 % (18.3-44.2); Mean Corpuscular HGB Conc 31.5 g/dl (32-36); Mean Corpuscular Hemoglobin 26.8 pg (26-34); Mean Platelet Volume 10.7 fl (7.4-10.4); Monocytes Absolute Auto 0.6 K/mm3 (0.1-0.6); Monocytes Percent Auto 6.9 % (2.6-8.5); Neutrophils Absolute Auto 6.2 K/mm3 (1.3-6.7); Neutrophils Percent Auto 66.6 % (45.5-73.1); Platelet Count Result 382 k/mm3 (150-375); Red Blood Count 3.81 M/mm3 (4.6-6.20); Red Cell Distribution Width 16.1 % (11.5-14.5); White Blood Count 9.3 K/mm3 (4.5-10.0)
--- NOTE | 2019-06-14 09:33 | PCWOUND ---
WOCN NOTE received referral to see patient for buttock abscess. Patient is being followed by Dr. Schmid for surgical intervention.
[2019-06-14 09:45] LABS: Glucose Point of Care 126 (65-105)
[2019-06-14 10:58] LABS: Glucose Point of Care 119 (65-105)
--- NOTE | 2019-06-14 10:58 | P.PNAN_ITS ---
Anes - Eval Final PreProcedure Day of Procedure 06/14/19 10:58 Patient weight: obese Heart: regular rate and rhythm Lungs: decreased breath sounds Airway: Mallampati scale class III Neurological: other (alert) Last oral intake: >/= 8 hours ASA classification: IV Emergent: no Anesthetic plan: proceed Anesthesia type and monitoring: general GIVS and standard monitoring Informed Consent: The patient's anesthetic plan and its attendant risks and bene fits were discussed with the patient/family/POA. Questions were solicited and answers provided to the satisfaction of the patient/family/POA.
[2019-06-14] MEDS: LACTATED RINGERS 1,000 ML 30 ML IV CONT (12:59)
--- NOTE | 2019-06-14 13:09 | SUR.OPER ---
culture specimen given to dino in lab by eunice
--- NOTE | 2019-06-14 13:15 | PM.PROC ---
Procedure Note - Detailed Date of procedure: 06/14/19 Pre-op diagnosis: Left ischial decubitus with abscess and necrosis Left ischial decubitus with abscess and necrosis Post-op diagnosis: other (Left ischial necrotizing soft tissue infection) Procedure performed: Excisional debridement necrotizing skin, subcutaneous, and muscle left ischium-14 cm x 4 cm x 2 cm or 112 cm3 Description of procedure: The patient was taken to surgery and induced into general anesthesia. He was placed in prone pedro luis-knife position. The left buttocks was shaved, prepped, and draped. The right buttocks had been taped away from the left. There were 3 areas of necrosis all 3 of which were draining. These were all in a relative line across the left ischium transversely. I started with the larger of the 3. I excised some of the necrotic skin over the infection. Abundant purulent fluid was noted. This was cultured for aerobes, anaerobes and Gram stain. Once this was excised, I then excised the necrotic skin over the other 2 areas. Similarly, they all had abundant purulent fluid with evidence of subcutaneous liquefaction necrosis and tunneling. I was then able to easily demonstrate communication between all 3 areas. I excised the intervening skin between the areas of necrosis. I had to excise some of the skin more medial and some laterally due to tracking of the infection. There was also subcutaneous and muscular necrotic, infected tissue which I performed excisional debridement on this as well. Areas of tracking with necrosis and infection were also excised and debrided in this manner. Eventually the entire wound had been cleaned by excising all the infected, purulent and necrotic tissue. Cautery was used for hemostasis initially. Then, multiple pieces of Surgicel were placed over the raw surface areas. Pressure was held with a laparotomy sponge. Hemostasis after this was excellent. I measured the wound and it was found to have the above dimensions. The wound bed was then dressed with Xeroform gauze, fluffs and ABDs. Medipore tape was used to hold the dressing in place. The patient was returned to a supine position. He was awakened and extubated. He was taken to recovery in good condition. Sponge and needle counts were correct x2. Anesthesia: GETA Surgeon: Sung Schmid MD Neonatal Intensive Care Unit Nurse: Meghan RG Estimated blood loss (mL): 10 Drains: No Packing: Yes Pathology: yes (ONLY CULTURES SENT) Complications: None Condition: stable Disposition: PACU Findings: Necrotizing soft tissue infection left ischial decubitus with purulent drainage and liquefaction necrosis.
[2019-06-14 13:16] LABS: Glucose Point of Care 143 (65-105)
[2019-06-14] MEDS: POLYSACCHARIDE IRON COMPLEX 150 MG CAPSULE PO ×2 (14:26→17:10)
[2019-06-14] MEDS: lisinopriL 20 MG TABLET 40 MG PO (14:26)
[2019-06-14] MEDS: GABAPENTIN 300 MG CAPSULE PO ×2 (14:26→17:10)
[2019-06-14] MEDS: FINASTERIDE 5 MG TABLET PO (14:26)
[2019-06-14] MEDS: ASPIRIN 325 MG ENTERIC TABLET PO (14:26)
[2019-06-14] MEDS: FUROSEMIDE 20 MG TABLET PO (14:27)
[2019-06-14] MEDS: SIMETHICONE 125 MG CHEW TAB PO ×3 (14:27→21:14)
[2019-06-14] MEDS: CHOLECALCIFEROL 1,000 UNIT TABLET 1000 UNITS PO (14:27)
[2019-06-14] MEDS: LACTATED RINGERS 1,000 ML 100 ML IV CONT (14:28)
[2019-06-14 15:36] LABS: Vancomycin Trough 13.2 ug/mL (10.0-20.0)
--- NOTE | 2019-06-14 16:52 | PM.IMPN ---
Progress Note: A&P Assessment and Plan (1) Cellulitis and abscess of buttock: Code(s): L02.31 - Cutaneous abscess of buttock; L03.317 - Cellulitis of buttock Status: Acute Assessment and Plan: Surgery consulted and appreciate recommendations. Debridement of necrotizing skin, subcutaneous, and muscle tissue today per Dr. Schmid. Wound cultures prior to surgery grew growth of skin svetlana in aerobic bottle and gram stain showed gram positive cocci in clusters. Decubitus ulcer cultures pending. Blood cultures negative to date. WBC lowered to 9.3k today Continue Vanc Dr. Glass has been consulted, as well and appreciate input (2) UTI due to extended-spectrum beta lactamase (ESBL) producing Escherichia coli: Code(s): N39.0 - Urinary tract infection, site not specified; B96.29 - Other Escherichia coli [E. coli] as the cause of diseases classified elsewhere; Z16.12 - Extended spectrum beta lactamase (ESBL) resistance Status: Chronic Assessment and Plan: The patient is being treated w/ Invanz for ESBL e. coli UTI; last dose per ID recommendations was today. No urinary symptoms today Monitor for symptoms. (3) Syncope and collapse: Code(s): R55 - Syncope and collapse Status: Acute Assessment and Plan: Patient tells me he did not lose consciousness and that he lost balance shifting in his chair and fell. Carotids negative today. CT unremarkable for bleed. Patient had another short run of Vtach today on tele, however patient is again asymptomatic; several pauses noted as well; otherwise sinus rhythm. Echo showed moderate aortic valve sclerosis without stenosis, diastolic dysfunction, and EF of 55-65% Given Vtach, continue Telemetry for now, Fall precautions, Neurochecks Monitor (4) Leukocytosis: Qualifiers: Leukocytosis type: unspecified Qualified Code(s): D72.829 - Elevated white blood cell count, unspecified Code(s): D72.829 - Elevated white blood cell count, unspecified Status: Deleted Assessment and Plan: Worsening leukocytosis on arrival appears to be secondary to cellulitis w/ furunculosis and possible UTI; WBC down to 9.3k today Monitor CBCd. (5) Chronic anemia: Code(s): D64.9 - Anemia, unspecified Status: Chronic Assessment and Plan: Stable, No signs of acute blood loss. Monitor H/H Transfuse prn. 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: with group home use Diabetes mellitus complication status: with circulatory complication Diabetes mellitus complication detail: with other circulatory complications Qualified Code(s): E11.59 - Type 2 diabetes mellitus with other circulatory complications; Z79.4 - group home (current) use of insulin Code(s): E11.9 - Type 2 diabetes mellitus without complications Status: Chronic Assessment and Plan: BGL low 100s today Accuchecks, SSI Coverage, Hypoglycemic protocol Continue Lantus 60 units and metformin (7) Hyperlipidemia: Qualifiers: Hyperlipidemia type: unspecified Qualified Code(s): E78.5 - Hyperlipidemia, unspecified Code(s): E78.5 - Hyperlipidemia, unspecified Status: Chronic Assessment and Plan: Continue atorvastatin PO. (8) Dementia: Qualifiers: Dementia type: unspecified type Dementia behavioral disturbance: without behavioral disturbance Qualified Code(s): F03.90 - Unspecified dementia without behavioral disturbance Code(s): F03.90 - Unspecified dementia without behavioral disturbance Status: Chronic Assessment and Plan: Continue Namenda
[2019-06-14] MEDS: MEMANTINE 5 MG TABLET PO (17:10)
[2019-06-14] MEDS: METOPROLOL TARTRATE 25 MG TABLET PO (17:10)
[2019-06-14] MEDS: ERTAPENEM 1 GM/NS 50 ML 1 GM/50 ML BAG IVPB (17:11)
--- NOTE | 2019-06-14 17:12 | WPDINFPN2 ---
Progress Note: A&P Assessment and Plan (1) UTI due to extended-spectrum beta lactamase (ESBL) producing Escherichia coli: Code(s): N39.0 - Urinary tract infection, site not specified; B96.29 - Other Escherichia coli [E. 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 Recent UTI 2. Decub ulcer , POD #0 REC Imipenem at least 2 days more. Subjective Date/time seen: 06/14/19 17:12 Objective Data Vital Signs Vital Signs: Vital Signs - 24 hr 06/13/19 20:00 06/13/19 21:07 06/14/19 00:00 Temperature 36.4 C Pulse Rate 63 64 68 Respiratory Rate 16 Blood Pressure 116/48 L Pulse Oximetry 100 06/14/19 05:00 06/14/19 05:49 06/14/19 08:00 Temperature 36.6 C Pulse Rate 64 65 68 Respiratory Rate 16 Blood Pressure 130/58 L Pulse Oximetry 96 06/14/19 10:50 06/14/19 12:59 06/14/19 13:10 Temperature 36.3 C L 36.1 C L Pulse Rate 75 58 L 68 Respiratory Rate 18 19 18 Blood Pressure 123/53 L 102/50 L 147/81 H Pulse Oximetry 97 100 100 06/14/19 13:25 06/14/19 13:40 06/14/19 13:50 Temperature Pulse Rate 64 68 69 Respiratory Rate 15 14 19 Blood Pressure 164/66 H 152/53 H 142/79 H Pulse Oximetry 97 94 96 06/14/19 14:00 06/14/19 17:10 Temperature 36.5 C Pulse Rate 86 82 Respiratory Rate 16 Blood Pressure 128/77 Pulse Oximetry 98 Intake/Output Intake/Output: Intake & Output 06/11/19 06/12/19 06/13/19 06/14/19 23:59 23:59 23:59 23:59 Intake Total 1000 4140 1480 Output Total 2300 3150 Balance 1000 1840 -1670 Meds/Results Medications: Active Medications Generic Name Dose Route Start Last Admin Trade Name Freq PRN Reason Stop Dose Admin Hydrocodone Bitart/Acetaminophen 1 tab 06/14/19 13:57 Taylor 5-325 Mg PO Q4H PRN Pain Rated 4-6 Hydrocodone Bitart/Acetaminophen 1 tab 06/14/19 13:57 Taylor 10-325 Mg PO Q4H PRN Pain Rated 7-10 Albuterol 2.5 mg 06/13/19 05:00 Albuterol Sulf Neb 2.5mg/0.5ml INHALATION TID PRN SHORTNESS OF BREATH Amlodipine Besylate 5 mg 06/13/19 21:00 06/13/19 20:50 Norvasc PO 5 mg HS SHAN Administration Aspirin 325 mg 06/13/19 09:00 06/14/19 14:26 Aspirin Ec PO 325 mg DAILY SHAN Administration Atorvastatin Calcium 80 mg 06/13/19 21:00 06/13/19 20:50 Lipitor PO 80 mg HS SHAN Administration Dextrose 12.5 gm 06/13/19 02:16 Dextrose 50% Syringe IV PUSH PRN PRN Hypoglycemia Protocol Dicyclomine HCl 20 mg 06/13/19 13:01 Bentyl Capsule PO QID PRN Abdominal Cramping Enoxaparin Sodium 40 mg 06/13/19 09:00 06/13/19 08:47 Lovenox SUB-Q 40 mg DAILY SHAN Administration Finasteride 5 mg 06/13/19 09:00 06/14/19 14:26 Proscar PO 5 mg DAILY SHAN Administration Furosemide 20 mg 06/13/19 09:00 06/14/19 14:27 Lasix Tablet PO 20 mg DAILY SHAN Administration Gabapentin 300 mg 06/13/19 09:00 06/14/19 17:10 Neurontin PO 300 mg TID SHAN Administration Glucagon 1 mg 06/13/19 02:16 Glucagon For Inj IM PRN PRN Hypoglycemia Protocol Glucose 15 gm 06/13/19 02:16 Glutose 15 PO PRN PRN Hypoglycemia Protocol Dextrose 1,000 mls @ 100 mls/hr 06/13/19 02:16 Dextrose 5% 1,000 Ml IVPB PRN PRN Hypoglycemia Protocol Lactated Ringer's 1,000 mls @ 100 mls/hr 06/14/19 13:57 06/14/19 14:28 Lr - Lactated Ringers Iv IV CONT 100 mls/hr .Q10H SHAN Administration Imipenem/Cilastatin Sodium 500 100 mls @ 300 mls/hr 06/14/19 17:15 mg/ Dextrose IVPB Q6H SHAN Ibuprofen 400 mg 06/14/19 13:57 Motrin PO Q6H PRN Pain Rated 1-3 Insulin Aspart 3 - 6 units 06/13/19 08:00 06/14/19 14:23 Novolog SUB-Q Not Given TIDWM SHAN Protocol Insulin Glargine 60 units 06/13/19 21:00 06/13/19 20:55 Lantus SUB-Q 6
[2019-06-14 17:23] LABS: Glucose Point of Care 376 (65-105)
[2019-06-14] MEDS: INSULIN ASPART (*BKC) 100 UNITS/ML SUB-Q (17:25)
[2019-06-14] MEDS: IMIPENEM/CILASTATIN SODIUM 500 MG in DEXTROSE 5% 100 ML 300 MG IVPB ×2 (17:51→23:37)
--- NOTE | 2019-06-14 19:42 | CONS_ITS ---
DATE OF CONSULTATION: 06/14/19 REASON FOR CONSULTATION: UTI. HISTORY OF PRESENT ILLNESS: The patient is a 73-year-old male known to me from recently. He was seen in the hospital with an ESBL producing symptomatic UTI and was given imipenem while here, changed to ertapenem for ease of administration in his detention. He returned from the detention after just over 24 hours when he fell out of his chair. He complained of hip pain to the ambulance crew. He was found to have worsening leukocytosis while here also a left frontal scalp hematoma and was admitted. He was taken to the operating room today where he underwent excision and debridement of necrotizing skins, subcutaneous and muscle tissue from a left ischial decubitus. I reviewed the operative findings. He is now postop. The wound has been entirely cleaned. He has been given vancomycin as renal stop date for the carbapenem was today. ALLERGIES: TRIMETHOPRIM SULFA. HABITS: See record. PRESENT MEDICATIONS: Reviewed. PAST MEDICAL HISTORY: Detailed in his record from my recent consult note. REVIEW OF SYSTEMS: Skin, constitutional, GI, , respiratory otherwise negative. FAMILY HISTORY: Not pertinent to his present illness. SOCIAL HISTORY: No family at the bedside. halfway resident. PHYSICAL EXAMINATION: GENERAL: This is an elderly male who appears actual age. No acute distress. VITAL SIGNS: Afebrile, 86, 16, 128/77, 94% on room air. SKIN: Warm and dry. EENT: Conjunctivae are normal. No petechiae. No icterus. LUNGS: Clear to auscultation. CARDIAC: Regular rate and rhythm without murmur or gallop. ABDOMEN: Soft, nontender, nondistended. : Bladder is not palpable. EXTREMITIES: Have BKAs bilaterally. I did not remove his intraoperative dressing. LABORATORY DATA: Wound culture shows skin svetlana only. His white blood cell count today is back to normal. Hemoglobin 10.2, platelets are 382. His chemistry panel normal except for glucose of 125. Vancomycin trough therapeutic. Blood cultures repeated also no growth. ASSESSMENT: 1. Recent drug-resistant urinary tract infection, doing well. 2. Ischial decubitus ulcer debrided, postop day 0. 3. Below knee amputation. RECOMMENDATIONS: Continue carbapenem at least 2 days more given his clinical course and we will follow up on his clinical information. Thank you very much for asking me to see him. MICKI RAO M.D. HOOKER OPERATOR HOOKER OPERATOR D I MT: Tristan LEBLANC
[2019-06-14] MEDS: INSULIN GLARGINE (*BKC) 100 UNITS/ML 60 UNITS SUB-Q (21:11)
[2019-06-14] MEDS: AMLODIPINE BESYLATE 5 MG TABLET PO (21:14)
[2019-06-14] MEDS: ATORVASTATIN 40 MG TABLET 80 MG PO (21:14)
[2019-06-14 22:43] LABS: Glucose Point of Care 298 (65-105)
[2019-06-15] VITALS (8 sets, daily range): BP systolic 88–121; BP diastolic 40–63; PULSE 56–82; RESP 16–20; TEMP 35.6–36.4; O2SAT 95–100
[2019-06-15] MEDS: LACTATED RINGERS 1,000 ML 100 ML IV CONT ×3 (03:06→23:32)
[2019-06-15 05:47] LABS: Blood Urea Nitrogen 19 mg/dL (9-20); Calcium 8.4 mg/dL (8.4-10.2); Carbon Dioxide 24 mmol/L (22-30); Chloride 96 mmol/L (98-107); Estimated CRCL calculation 75 ml/min; Estimated Glomerular Filt Rate > 60; Glucose 240 mg/dL (75-110); Potassium 4.8 mmol/L (3.4-5.0); Sodium 132 mmol/L (137-145)
[2019-06-15 06:08] LABS: Basophils Percent Auto 0.1 % (0.2-1.2); Eosinophils Percent Auto 0.1 % (0-4.4); Immature Granulocyte Absolute 0.09 K/mm3 (0.00-0.031); Immature Granulocyte Percent A 0.6 % (0-0.5); Lymphocytes Absolute Auto 1.72 K/mm3 (0.9-3.2); Lymphocytes Percent Auto 12.2 % (18.3-44.2); Mean Corpuscular HGB Conc 31.3 g/dl (32-36); Mean Corpuscular Hemoglobin 26.7 pg (26-34); Mean Corpuscular Volume 85.3 fl (80-100); Mean Platelet Volume 11.1 fl (7.4-10.4); Monocytes Absolute Auto 0.7 K/mm3 (0.1-0.6); Monocytes Percent Auto 4.9 % (2.6-8.5); Neutrophils Absolute Auto 11.6 K/mm3 (1.3-6.7); Neutrophils Percent Auto 82.1 % (45.5-73.1); Platelet Count Result 404 k/mm3 (150-375); Red Blood Count 3.75 M/mm3 (4.6-6.20); Red Cell Distribution Width 15.9 % (11.5-14.5); White Blood Count 14.1 K/mm3 (4.5-10.0)
[2019-06-15] MEDS: IMIPENEM/CILASTATIN SODIUM 500 MG in DEXTROSE 5% 100 ML 300 MG IVPB ×3 (06:10→17:39)
[2019-06-15 07:52] LABS: Glucose Point of Care 219 (65-105)
[2019-06-15] MEDS: INSULIN ASPART (*BKC) 100 UNITS/ML SUB-Q ×2 (07:52→11:27)
[2019-06-15] MEDS: GABAPENTIN 300 MG CAPSULE PO ×3 (09:15→17:35)
[2019-06-15] MEDS: SIMETHICONE 125 MG CHEW TAB PO ×4 (09:16→20:24)
[2019-06-15] MEDS: MEMANTINE 5 MG TABLET PO ×2 (09:17→17:35)
[2019-06-15] MEDS: CHOLECALCIFEROL 1,000 UNIT TABLET 1000 UNITS PO (09:17)
[2019-06-15] MEDS: ENOXAPARIN 40 MG/0.4 ML SYRINGE SUB-Q (09:18)
[2019-06-15] MEDS: ASPIRIN 325 MG ENTERIC TABLET PO (09:18)
[2019-06-15] MEDS: FINASTERIDE 5 MG TABLET PO (09:20)
--- NOTE | 2019-06-15 09:50 | WPDANESPN ---
Anes - Prog Note Post-Op Date/Time: 06/15/19 09:50 Cardiovascular status: normal Respiratory status: normal Airway patency: baseline Mental status: baseline Post-Op hydration status: normal Vital Signs: Last Vital Signs Temp 35.9 C L 06/15/19 09:27 Pulse 74 06/15/19 09:27 Resp 20 06/15/19 09:27 BP 88/50 L 06/15/19 09:27 Pulse Ox 95 06/15/19 09:00 I/O: Intake & Output 06/14/19 06/15/19 06/15/19 23:59 07:59 15:59 Intake Total 1047 1653 240 Output Total 750 200 Balance 297 1453 240 Laboratory Tests 06/15/19 05:17 06/15/19 05:17 06/14/19 06/14/19 06/14/19 10:52 13:15 14:39 WBC RBC Hgb Hct MCV MCH MCHC RDW Plt Count MPV Immature Gran % (Auto) Neut % (Auto) Lymph % (Auto) [place] % (Auto) Eos % (Auto) Baso % (Auto) Lymph # (Auto) [place] # (Auto) Eos # (Auto) Baso # (Auto) Abs Immat Gran (auto) Absolute Neuts (auto) Absolute Nucleated RBC Nucleated RBC % Sodium Potassium Chloride Carbon Dioxide BUN Creatinine Estim Creat Clear Calc Estimated GFR Glucose POC Capillary Glucose 119 H 143 H Calcium Magnesium Vancomycin Trough 13.2 06/14/19 06/14/19 06/15/19 17:18 21:11 05:17 WBC 14.1 H RBC 3.75 L Hgb 10.0 L Hct 32.0 L MCV 85.3 MCH 26.7 MCHC 31.3 L RDW 15.9 H Plt Count 404 H MPV 11.1 H Immature Gran % (Auto) 0.6 H Neut % (Auto) 82.1 H Lymph % (Auto) 12.2 L [place] % (Auto) 4.9 Eos % (Auto) 0.1 Baso % (Auto) 0.1 L Lymph # (Auto) 1.72 [place] # (Auto) 0.7 H Eos # (Auto) 0.0 Baso # (Auto) 0.0 Abs Immat Gran (auto) 0.09 H Absolute Neuts (auto) 11.6 H Absolute Nucleated RBC 0.0 Nucleated RBC % 0.0 Sodium Potassium Chloride Carbon Dioxide BUN Creatinine Estim Creat Clear Calc Estimated GFR Glucose POC Capillary Glucose 376 H 298 H Calcium Magnesium Vancomycin Trough 06/15/19 06/15/19 05:17 07:50 WBC RBC Hgb Hct MCV MCH MCHC RDW Plt Count MPV Immature Gran % (Auto) Neut % (Auto) Lymph % (Auto) [place] % (Auto) Eos % (Auto) Baso % (Auto) Lymph # (Auto) [place] # (Auto) Eos # (Auto) Baso # (Auto) Abs Immat Gran (auto) Absolute Neuts (auto) Absolute Nucleated RBC Nucleated RBC % Sodium 132 L Potassium 4.8 Chloride 96 L Carbon Dioxide 24 BUN 19 Creatinine 0.70 Estim Creat Clear Calc 75 Estimated GFR > 60 Glucose 240 H POC Capillary Glucose 219 H Calcium 8.4 Magnesium 2.0 Vancomycin Trough Microbiology 06/13/19 02:05 Buttock Anaerobic Culture - Preliminary 06/13/19 02:05 Buttock Aerobic Culture - Preliminary Yeast isolated 06/13/19 06:00 Blood Blood Culture - Preliminary 06/13/19 02:05 Nasopharynx MRSA Culture - Final 06/13/19 05:55 Blood Blood Culture - Preliminary Post-procedural complaints: none Patient Feedback: Patient satisfied with anesthetic care.
--- NOTE | 2019-06-15 10:33 | PM.PNGS ---
Progress Note: A&P Assessment and Plan (1) Decubitus ulcer of left ischium, unstageable: Code(s): L89.320 - Pressure ulcer of left buttock, unstageable Status: Acute Assessment and Plan: Post-op day 1 excisional debridement of left ischial decubitus ulcer and the wound looks good today. Pain well controlled Initiated wound VAC therapy, which will also need to be continued on discharge back to the correction. Decubitus wound cultures from surgery are pending. Preliminary shows growth of moderate gram positive cocci and moderate gram negative bacilli. Continue IV antibiotics per ID. Minimize pressure to left buttock wound. (2) Cellulitis and abscess of buttock: Code(s): L02.31 - Cutaneous abscess of buttock; L03.317 - Cellulitis of buttock Status: Acute Assessment and Plan: See plan above. (3) UTI due to extended-spectrum beta lactamase (ESBL) producing Escherichia coli: Code(s): N39.0 - Urinary tract infection, site not specified; B96.29 - Other Escherichia coli [E. coli] as the cause of diseases classified elsewhere; Z16.12 - Extended spectrum beta lactamase (ESBL) resistance Status: Chronic Assessment and Plan: Management per Infectious Disease and hospitalist service. Additional Plan Discussed the patient's case and plan of care with Dr. Schmid. Subjective Subjective Date/Time Seen: 06/15/19 10:00 Post Op day: 1 (Excisional debridement necrotizing skin, subcutaneous, and muscle left ischium) Patient reports: no new complaints, feels better and pain is less Interval history: Patient seen and examined. Reports having minimal discomfort of his left buttock. States the pain has actually improved since yesterday. No other complaints at this time. Patient assessed with wound care nurses for evaluation of wound VAC therapy. Review of Systems Review of Systems: All systems reviewed & are unremarkable except as noted in HPI and below Exam Const: General: comfortable, no acute distress, alert and awake Skin: Other: Left ischial wound looks good today with some granulation tissue noted in a nice pink wound bed. No areas of necrotic tissue or purulent drainage. Surrounding skin appears healthy as well. Wound VAC applied. Objective Data Vital Signs Vital Signs: Vital Signs - 24 hr 06/14/19 10:50 06/14/19 12:59 06/14/19 13:10 Temperature 36.3 C L 36.1 C L Pulse Rate 75 58 L 68 Respiratory Rate 18 19 18 Blood Pressure 123/53 L 102/50 L 147/81 H Pulse Oximetry 97 100 100 06/14/19 13:25 06/14/19 13:40 06/14/19 13:50 Temperature Pulse Rate 64 68 69 Respiratory Rate 15 14 19 Blood Pressure 164/66 H 152/53 H 142/79 H Pulse Oximetry 97 94 96 06/14/19 14:00 06/14/19 17:10 06/14/19 21:50 Temperature 36.5 C 35.6 C L Pulse Rate 86 82 51 L Respiratory Rate 16 16 Blood Pressure 128/77 132/53 L Pulse Oximetry 98 99 06/15/19 05:57 06/15/19 09:00 06/15/19 09:22 Temperature 35.6 C L Pulse Rate 56 L 72 Respiratory Rate 16 Blood Pressure 117/56 L Pulse Oximetry 100 95 06/15/19 09:27 Temperature 35.9 C L Pulse Rate 74 Respiratory Rate 20 Blood Pressure 88/50 L Pulse Oximetry Intake/Output Intake/Output: Intake & Output 06/12/19 06/13/19 06/14/19 06/15/19 23:59 23:59 23:59 23:59 Intake Total 1000 4140 2027 1893 Output Total 2300 3150 200 Balance 1000 1840 -1123 1693 Meds/Results Medications: Active Medications Generic Name Dose Route Start Last Admin Trade Name Freq PRN Reason Stop Dose Admin Hydrocodone Bitart/Acetaminophen 1 tab 06/14/19 13:[address] 5-325 Mg PO Q4H PRN Pain Rated 4-6 Hydrocodone Bitart/Acetaminophen 1 tab 06/14/19 13:57 06/14/19 21:[address] 10-325 Mg PO 1 tab Q4H PRN Administration Pain Rated 7-10 Albuterol 2.5 mg 06/13/19 05:00 Albuterol Sulf Neb 2.5mg/0.5ml INHALATION TID PRN SHORTNESS OF BREATH Amlodipine Besylate 5 mg 06/13/19 21:00 06/14/19 21:14
[2019-06-15 11:26] LABS: Glucose Point of Care 251 (65-105)
[2019-06-15] MEDS: POLYSACCHARIDE IRON COMPLEX 150 MG CAPSULE PO ×2 (11:28→17:35)
--- NOTE | 2019-06-15 13:10 | WPDINFPN2 ---
Progress Note: A&P Assessment and Plan (1) UTI due to extended-spectrum beta lactamase (ESBL) producing Escherichia coli: Code(s): N39.0 - Urinary tract infection, site not specified; B96.29 - Other Escherichia coli [E. 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 Recent UTI, stable 2. Decub ulcer , POD #1, intraop culture in process. The yeast (non invasive swab preop) is not a pathogen REC Imipenem at least 1 day more. Subjective Date/time seen: 06/15/19 13:10 Interval history: no complaints except ulcer pain Exam Narrative: Exam Narrative: afebrile GI: Inspection: non-distended GI Palp: Yes Soft to palpation, No Tenderness to palpation present (GI) and No Guarding due to palpation present (GI) Objective Data Vital Signs Vital Signs: Vital Signs - 24 hr 06/14/19 13:25 06/14/19 13:40 06/14/19 13:50 Temperature Pulse Rate 64 68 69 Respiratory Rate 15 14 19 Blood Pressure 164/66 H 152/53 H 142/79 H Pulse Oximetry 97 94 96 06/14/19 14:00 06/14/19 17:10 06/14/19 21:50 Temperature 36.5 C 35.6 C L Pulse Rate 86 82 51 L Respiratory Rate 16 16 Blood Pressure 128/77 132/53 L Pulse Oximetry 98 99 06/15/19 05:57 06/15/19 09:00 06/15/19 09:22 Temperature 35.6 C L Pulse Rate 56 L 72 Respiratory Rate 16 Blood Pressure 117/56 L Pulse Oximetry 100 95 06/15/19 09:27 Temperature 35.9 C L Pulse Rate 74 Respiratory Rate 20 Blood Pressure 88/50 L Pulse Oximetry Intake/Output Intake/Output: Intake & Output 06/12/19 06/13/19 06/14/19 06/15/19 23:59 23:59 23:59 23:59 Intake Total 1000 4140 2027 2373 Output Total 2300 3150 200 Balance 1000 1840 -1123 2173 Meds/Results Medications: Active Medications Generic Name Dose Route Start Last Admin Trade Name Freq PRN Reason Stop Dose Admin Hydrocodone Bitart/Acetaminophen 1 tab 06/14/19 13:57 [place] 5-325 Mg PO Q4H PRN Pain Rated 4-6 Hydrocodone Bitart/Acetaminophen 1 tab 06/14/19 13:57 06/14/19 21:19 [place] 10-325 Mg PO 1 tab Q4H PRN Administration Pain Rated 7-10 Albuterol 2.5 mg 06/13/19 05:00 Albuterol Sulf Neb 2.5mg/0.5ml INHALATION TID PRN SHORTNESS OF BREATH Amlodipine Besylate 5 mg 06/13/19 21:00 06/14/19 21:14 Norvasc PO 5 mg HS SHAN Administration Aspirin 325 mg 06/13/19 09:00 06/15/19 09:18 Aspirin Ec PO 325 mg DAILY SHAN Administration Atorvastatin Calcium 80 mg 06/13/19 21:00 06/14/19 21:14 Lipitor PO 80 mg HS SHAN Administration Dextrose 12.5 gm 06/13/19 02:16 Dextrose 50% Syringe IV PUSH PRN PRN Hypoglycemia Protocol Dicyclomine HCl 20 mg 06/13/19 13:01 Bentyl Capsule PO QID PRN Abdominal Cramping Enoxaparin Sodium 40 mg 06/13/19 09:00 06/15/19 09:18 Lovenox SUB-Q 40 mg DAILY SHAN Administration Finasteride 5 mg 06/13/19 09:00 06/15/19 09:20 Proscar PO 5 mg DAILY SHAN Administration Furosemide 20 mg 06/13/19 09:00 06/15/19 09:22 Lasix Tablet PO Not Given DAILY SHAN Gabapentin 300 mg 06/13/19 09:00 06/15/19 09:15 Neurontin PO 300 mg TID SHAN Administration Glucagon 1 mg 06/13/19 02:16 Glucagon For Inj IM PRN PRN Hypoglycemia Protocol Glucose 15 gm 06/13/19 02:16 Glutose 15 PO PRN PRN Hypoglycemia Protocol Dextrose 1,000 mls @ 100 mls/hr 06/13/19 02:16 Dextrose 5% 1,000 Ml IVPB PRN PRN Hypoglycemia Protocol Lactated Ringer's 1,000 mls @ 100 mls/hr 06/14/19 13:57 06/15/19 06:11 Lr - Lactated Ringers Iv IV CONT 100 mls/hr .Q10H SHAN Infusion Imipenem/Cilastatin Sodium 500 100 mls @ 300 mls/hr 06/14/19 18:00 06/15/19 11:34 mg/ Dextrose IVPB 300 mls/hr Q6H SHAN Administration Ibuprofen 400 mg 06/14/19 13:57 Motrin PO Q6H PRN Pain R
--- NOTE | 2019-06-15 15:04 | PC.NURSE ---
On 06/15/19, the student, Damien Flores, provided care and completed [facility] documentation on this patient. I have reviewed the student's documentation and agree with the findings.
[2019-06-15] MEDS: METOPROLOL TARTRATE 25 MG TABLET PO (17:35)
[2019-06-15 17:44] LABS: Glucose Point of Care 159 (65-105)
--- NOTE | 2019-06-15 18:03 | PM.IMPN ---
Progress Note: A&P Assessment and Plan (1) Cellulitis and abscess of buttock: Code(s): L02.31 - Cutaneous abscess of buttock; L03.317 - Cellulitis of buttock Status: Acute Assessment and Plan: Surgery consulted and appreciate recommendations. Debridement of necrotizing skin, subcutaneous, and muscle tissue today per Dr. Schmid. Wound cultures prior to surgery grew growth of skin svetlana in aerobic bottle and gram stain showed gram positive cocci in clusters. Decubitus ulcer cultures pending. Blood cultures negative to date. Vanc currently no active Await blood and intraoperative wound culture results (2) UTI due to extended-spectrum beta lactamase (ESBL) producing Escherichia coli: Code(s): N39.0 - Urinary tract infection, site not specified; B96.29 - Other Escherichia coli [E. coli] as the cause of diseases classified elsewhere; Z16.12 - Extended spectrum beta lactamase (ESBL) resistance Status: Chronic Assessment and Plan: The patient is being treated Primaxin for ESBL e. coli UTI No urinary symptoms today Continuing Primaxin at least until 06/16. (3) Syncope and collapse: Code(s): R55 - Syncope and collapse Status: Acute Assessment and Plan: He did not lose consciousness and that he lost balance shifting in his chair and fell. Carotids negative today. CT unremarkable for bleed. Patient has had short runs of Vtach today on tele, however patient remains asymptomatic. Several pauses noted as well; otherwise sinus rhythm. Echo showed moderate aortic valve sclerosis without stenosis, diastolic dysfunction, and EF of 55-65% Given Vtach, continue Telemetry Fall precautions, (4) Chronic anemia: Code(s): D64.9 - Anemia, unspecified Status: Chronic Assessment and Plan: Stable, No signs of acute blood loss. Monitor H/H Transfuse prn. (5) Diabetes: Qualifiers: Diabetes mellitus complication detail: with other circulatory complications Diabetes mellitus complication status: with circulatory complication Diabetes mellitus letter carrier insulin use: with letter carrier use Diabetes mellitus type: type 2 Qualified Code(s): E11.59 - Type 2 diabetes mellitus with other circulatory complications; Z79.4 - penitentiary (current) use of insulin Code(s): E11.9 - Type 2 diabetes mellitus without complications Status: Chronic Assessment and Plan: BGL low 100s today Accuchecks, SSI Coverage, Hypoglycemic protocol Continue Lantus 60 units and metformin (6) Hyperlipidemia: Qualifiers: Hyperlipidemia type: unspecified Qualified Code(s): E78.5 - Hyperlipidemia, unspecified Code(s): E78.5 - Hyperlipidemia, unspecified Status: Chronic Assessment and Plan: Continue atorvastatin PO. (7) Dementia: Qualifiers: Dementia behavioral disturbance: without behavioral disturbance Dementia type: unspecified type Qualified Code(s): F03.90 - Unspecified dementia without behavioral disturbance Code(s): F03.90 - Unspecified dementia without behavioral disturbance Status: Chronic Assessment and Plan: Continue Namenda (8) CAD (coronary artery disease): Qualifiers: Associated angina: without angina Coronary Disease-Associated Artery/Lesion type: unspecified vessel or lesion type [place] vs. transplanted heart: [place] heart Qualified Code(s): I25.10 - Atherosclerotic heart disease of [place] coronary artery without angina pectoris Code(s): I25.10 - Atherosclerotic heart disease of [place] coronary artery without angina pectoris Status: Chronic Assessment and Plan: No chest pain today. Continue ASA and beta block
[2019-06-15] MEDS: INSULIN GLARGINE (*BKC) 100 UNITS/ML 60 UNITS SUB-Q (20:12)
[2019-06-15] MEDS: ATORVASTATIN 40 MG TABLET 80 MG PO (20:23)
[2019-06-15] MEDS: AMLODIPINE BESYLATE 5 MG TABLET PO (20:24)
[2019-06-15] MEDS: ACETAMINOPHEN 325 MG TABLET 650 MG PO (20:44)
[2019-06-15] MEDS: IMIPENEM/CILASTATIN SODIUM 500 MG in DEXTROSE 5% 100 ML 100 MG IVPB (23:33)
[2019-06-16 00:38] LABS: Glucose Point of Care 183 (65-105)
[2019-06-16] MEDS: ACETAMINOPHEN 325 MG TABLET 650 MG PO (05:09)
[2019-06-16] MEDS: IMIPENEM/CILASTATIN SODIUM 500 MG in DEXTROSE 5% 100 ML 300 MG IVPB ×3 (05:10→17:20)
[2019-06-16 06:23] VITALS: BP 127/48; PULSE 66; RESP 16; TEMP 36; O2SAT 100
[2019-06-16] MEDS: POLYSACCHARIDE IRON COMPLEX 150 MG CAPSULE PO ×2 (08:25→16:51)
[2019-06-16] MEDS: ASPIRIN 325 MG ENTERIC TABLET PO (08:26)
[2019-06-16] MEDS: CHOLECALCIFEROL 1,000 UNIT TABLET 1000 UNITS PO (08:26)
[2019-06-16 08:27] LABS: Glucose Point of Care 69 (65-105)
[2019-06-16] MEDS: FINASTERIDE 5 MG TABLET PO (08:27)
[2019-06-16] MEDS: ENOXAPARIN 40 MG/0.4 ML SYRINGE SUB-Q (08:27)
[2019-06-16] MEDS: FUROSEMIDE 20 MG TABLET PO (08:28)
[2019-06-16] MEDS: MEMANTINE 5 MG TABLET PO ×2 (08:28→16:50)
[2019-06-16] MEDS: lisinopriL 20 MG TABLET 40 MG PO (08:28)
[2019-06-16] MEDS: GABAPENTIN 300 MG CAPSULE PO ×3 (08:28→16:50)
[2019-06-16 08:29] VITALS: PULSE 64
[2019-06-16] MEDS: SIMETHICONE 125 MG CHEW TAB PO ×4 (08:29→21:02)
[2019-06-16] MEDS: METOPROLOL TARTRATE 25 MG TABLET PO ×2 (08:29→16:51)
--- NOTE | 2019-06-16 08:40 | PC.NURSE ---
Patient's blood sugar was 69. He refused oral glucose so apple juice was given. Reassessed blood sugar after 15 minutes and blood sugar was 103.
[2019-06-16 08:55] LABS: Glucose Point of Care 103 (65-105)
--- NOTE | 2019-06-16 10:17 | PM.IMPN ---
Progress Note: A&P Assessment and Plan (1) Cellulitis and abscess of buttock: Code(s): L02.31 - Cutaneous abscess of buttock; L03.317 - Cellulitis of buttock Status: Acute Assessment and Plan: Surgery consulted and appreciate recommendations. Debridement of necrotizing skin, subcutaneous, and muscle tissue today per Dr. Schmid. Wound cultures prior to surgery grew growth of skin svetlana in aerobic bottle and gram stain showed gram positive cocci in clusters. Decubitus ulcer cultures pending. Blood cultures negative to date. Vanc currently not active Await blood and intraoperative wound culture results (so far with GPC and GNR) (2) UTI due to extended-spectrum beta lactamase (ESBL) producing Escherichia coli: Code(s): N39.0 - Urinary tract infection, site not specified; B96.29 - Other Escherichia coli [E. coli] as the cause of diseases classified elsewhere; Z16.12 - Extended spectrum beta lactamase (ESBL) resistance Status: Chronic Assessment and Plan: The patient is being treated Primaxin for ESBL e. coli UTI No urinary symptoms today Continuing Primaxin at least until 06/16. (3) Syncope and collapse: Code(s): R55 - Syncope and collapse Status: Acute Assessment and Plan: He did not lose consciousness and that he lost balance shifting in his chair and fell. Carotids negative today. CT unremarkable for bleed. Patient has had short runs of Vtach today on tele, however patient remains asymptomatic. Several pauses noted as well; otherwise sinus rhythm. Echo showed moderate aortic valve sclerosis without stenosis, diastolic dysfunction, and EF of 55-65% Given Vtach, continue Telemetry Fall precautions, (4) Chronic anemia: Code(s): D64.9 - Anemia, unspecified Status: Chronic Assessment and Plan: Stable, No signs of acute blood loss. Monitor H/H Transfuse prn. 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 mellitus custodial insulin use: with custodial use Diabetes mellitus complication status: with circulatory complication Diabetes mellitus complication detail: with other circulatory complications Qualified Code(s): E11.59 - Type 2 diabetes mellitus with other circulatory complications; Z79.4 - exterminator helper termite (current) use of insulin Code(s): E11.9 - Type 2 diabetes mellitus without complications Status: Chronic Assessment and Plan: BS below 150 Accuchecks, SSI Coverage, Hypoglycemic protocol Continue Lantus 60 units and metformin (6) Hyperlipidemia: Qualifiers: Hyperlipidemia type: unspecified Qualified Code(s): E78.5 - Hyperlipidemia, unspecified Code(s): E78.5 - Hyperlipidemia, unspecified Status: Chronic Assessment and Plan: Continue atorvastatin PO. (7) Dementia: Qualifiers: Dementia type: unspecified type Dementia behavioral disturbance: without behavioral disturbance Qualified Code(s): F03.90 - Unspecified dementia without behavioral disturbance Code(s): F03.90 - Unspecified dementia without behavioral disturbance Status: Chronic Assessment and Plan: Continue Namenda (8) CAD (coronary artery disease): Qualifiers: Coronary Disease-Associated Artery/Lesion type: unspecified vessel or lesion type [place] vs. transplanted heart: [place] heart Associated angina: without angina Qualified Code(s): I25.10 - Atherosclerotic heart disease of [place] coronary artery without angina pectoris Code(s): I25.10 - Atherosclerotic heart disease of [place] coronary artery without angina pectoris Status: Chronic Assessment and Plan: No chest pain today. Contin
[2019-06-16] MEDS: LACTATED RINGERS 1,000 ML 100 ML IV CONT ×2 (10:43→21:36)
--- NOTE | 2019-06-16 11:29 | WPDINFPN2 ---
Progress Note: A&P Assessment and Plan (1) UTI due to extended-spectrum beta lactamase (ESBL) producing Escherichia coli: Code(s): N39.0 - Urinary tract infection, site not specified; B96.29 - Other Escherichia coli [E. 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 Recent UTI, stable 2. Decub ulcer , POD #2, Acinetobacter isolated. The yeast (non invasive swab preop) is not a pathogen REC Imipenem at least 1 day more. Repeat CBC, and f/u susceptibilities. PICC in place. Subjective Date/time seen: 06/16/19 11:29 Interval history: pain doing better at ulcer site. Exam Narrative: Exam Narrative: afebrile Const: General: no acute distress Eyes: General: appearance normal, both eyes and all related structures Resp: Effort & Inspection: normal respiratory effort Auscultation: clear to auscultation bilaterally Cardio: Rate: regular rate Rhythm: regular rhythm Heart sounds: no gallops and no murmurs GI: Inspection: distended GI Palp: Yes Firmness to palpation present (GI), No Tenderness to palpation present (GI) and No Guarding due to palpation present (GI) Percussion: Yes normal to percussion Skin: General skin exam: normal color and no rashes or lesions noted Objective Data Vital Signs Vital Signs: Vital Signs - 24 hr 06/15/19 14:00 06/15/19 17:30 06/15/19 17:35 Temperature 36.4 C Pulse Rate 78 82 82 Respiratory Rate 20 Blood Pressure 96/40 L 121/63 Pulse Oximetry 98 06/15/19 22:32 06/16/19 06:23 06/16/19 08:29 Temperature 36.2 C L 36.0 C L Pulse Rate 66 66 64 Respiratory Rate 16 16 Blood Pressure 106/40 L 127/48 L Pulse Oximetry 97 100 Intake/Output Intake/Output: Intake & Output 06/13/19 06/14/19 06/15/19 06/16/19 23:59 23:59 23:59 23:59 Intake Total 4140 2027 5673 1700 Output Total 2300 3150 2050 1500 Balance 1840 -1123 3623 200 Meds/Results Medications: Active Medications Generic Name Dose Route Start Last Admin Trade Name Freq PRN Reason Stop Dose Admin Acetaminophen 650 mg 06/15/19 20:18 06/16/19 05:09 Tylenol Tablet PO 650 mg Q4H PRN Administration Headache Hydrocodone Bitart/Acetaminophen 1 tab 06/14/19 13:57 [place] 5-325 Mg PO Q4H PRN Pain Rated 4-6 Hydrocodone Bitart/Acetaminophen 1 tab 06/14/19 13:57 06/16/19 08:33 [place] 10-325 Mg PO 1 tab Q4H PRN Administration Pain Rated 7-10 Albuterol 2.5 mg 06/13/19 05:00 Albuterol Sulf Neb 2.5mg/0.5ml INHALATION TID PRN SHORTNESS OF BREATH Amlodipine Besylate 5 mg 06/13/19 21:00 06/15/19 20:24 Norvasc PO 5 mg HS SHAN Administration Aspirin 325 mg 06/13/19 09:00 06/16/19 08:26 Aspirin Ec PO 325 mg DAILY SHAN Administration Atorvastatin Calcium 80 mg 06/13/19 21:00 06/15/19 20:23 Lipitor PO 80 mg HS SHAN Administration Dextrose 12.5 gm 06/13/19 02:16 Dextrose 50% Syringe IV PUSH PRN PRN Hypoglycemia Protocol Dicyclomine HCl 20 mg 06/13/19 13:01 Bentyl Capsule PO QID PRN Abdominal Cramping Enoxaparin Sodium 40 mg 06/13/19 09:00 06/16/19 08:27 Lovenox SUB-Q 40 mg DAILY SHAN Administration Finasteride 5 mg 06/13/19 09:00 06/16/19 08:27 Proscar PO 5 mg DAILY SHAN Administration Furosemide 20 mg 06/13/19 09:00 06/16/19 08:28 Lasix Tablet PO 20 mg DAILY SHAN Administration Gabapentin 300 mg 06/13/19 09:00 06/16/19 08:28 Neurontin PO 300 mg TID SHAN Administration Glucagon 1 mg 06/13/19 02:16 Glucagon For Inj IM PRN PRN Hypoglycemia Protocol Glucose 15 gm 06/13/19 02:16 Glutose 15 PO PRN PRN Hypoglycemia Protocol Dextrose 1,000 mls @ 100 mls/hr 06/13/19 02:16 Dextrose 5% 1,000 Ml IVPB PRN PRN Hypoglycemia Protocol Lactated Ringer's 1,000 mls @ 100 mls/hr
[2019-06-16 12:29] LABS: Glucose Point of Care 121 (65-105)
[2019-06-16 14:00] VITALS: BP 107/49; PULSE 62; RESP 16; TEMP 36.7; O2SAT 98
--- NOTE | 2019-06-16 15:35 | PC.NURSE ---
On 06/16/19, the fuel house attendant Claudio Nobles, provided care and completed [facility] documentation on this patient. I have reviewed the student's documentation and agree with the findings.
[2019-06-16 16:51] VITALS: PULSE 74
[2019-06-16 17:12] LABS: Glucose Point of Care 104 (65-105)
[2019-06-16] MEDS: AMLODIPINE BESYLATE 5 MG TABLET PO (21:02)
[2019-06-16] MEDS: ATORVASTATIN 40 MG TABLET 80 MG PO (21:02)
[2019-06-16] MEDS: INSULIN GLARGINE (*BKC) 100 UNITS/ML 60 UNITS SUB-Q (21:03)
[2019-06-16 21:05] LABS: Glucose Point of Care 174 (65-105)
[2019-06-16 22:00] VITALS: BP 118/47; PULSE 67; RESP 16; TEMP 36; O2SAT 99
[2019-06-17] MEDS: SODIUM CHLORIDE 0.9% IV 1,000 ML 100 ML IV CONT ×2 (00:17→11:34)
[2019-06-17] MEDS: IMIPENEM/CILASTATIN SODIUM 500 MG in DEXTROSE 5% 100 ML 200 MG IVPB ×2 (00:17→06:20)
[2019-06-17 05:40] VITALS: BP 123/45; PULSE 71; RESP 16; TEMP 36.1; O2SAT 98
[2019-06-17 05:58] LABS: Hematocrit 32.2 % (42.0-52.0); Hemoglobin 10.4 g/dL (14.0-18.0); Mean Corpuscular HGB Conc 32.3 g/dl (32-36); Mean Corpuscular Hemoglobin 27.2 pg (26-34); Mean Corpuscular Volume 84.3 fl (80-100); Mean Platelet Volume 10.3 fl (7.4-10.4); Platelet Count Result 431 k/mm3 (150-375); Red Blood Count 3.82 M/mm3 (4.6-6.20); Red Cell Distribution Width 15.9 % (11.5-14.5); White Blood Count 14.2 K/mm3 (4.5-10.0)
[2019-06-17 06:16] LABS: Estimated CRCL calculation 86 ml/min; Estimated Glomerular Filt Rate > 60
--- NOTE | 2019-06-17 07:55 | PC.NURSE ---
Notified ERICKA Munson in wound care patient's wound vac dressing no longer intact. Attempted to reinforce dressing but will not seal on wound vac. Per wound care nurse they will be to floor to assess wound vac today. Follow orders to initiate dressing.
[2019-06-17] MEDS: GABAPENTIN 300 MG CAPSULE PO ×3 (08:13→17:32)
[2019-06-17] MEDS: lisinopriL 20 MG TABLET 40 MG PO (08:14)
[2019-06-17] MEDS: CHOLECALCIFEROL 1,000 UNIT TABLET 1000 UNITS PO (08:14)
[2019-06-17] MEDS: MEMANTINE 5 MG TABLET PO ×2 (08:14→17:32)
[2019-06-17] MEDS: FINASTERIDE 5 MG TABLET PO (08:14)
[2019-06-17] MEDS: FUROSEMIDE 20 MG TABLET PO (08:14)
[2019-06-17 08:15] VITALS: PULSE 68
[2019-06-17] MEDS: SIMETHICONE 125 MG CHEW TAB PO ×4 (08:15→20:52)
[2019-06-17] MEDS: METOPROLOL TARTRATE 25 MG TABLET PO ×2 (08:15→17:32)
[2019-06-17] MEDS: POLYSACCHARIDE IRON COMPLEX 150 MG CAPSULE PO ×2 (08:15→17:32)
[2019-06-17] MEDS: ASPIRIN 325 MG ENTERIC TABLET PO (08:15)
[2019-06-17] MEDS: ENOXAPARIN 40 MG/0.4 ML SYRINGE SUB-Q (08:16)
[2019-06-17] MEDS: GLUCOSE ORAL GEL 15 GM OF GLUCSE IN 37.5 GM TUBE PO (08:21)
[2019-06-17 10:41] LABS: Glucose Point of Care 97 (65-105)
[2019-06-17 10:41] LABS: Glucose Point of Care 60 (65-105)
[2019-06-17] MEDS: IMIPENEM/CILASTATIN SODIUM 500 MG in DEXTROSE 5% 100 ML 300 MG IVPB (11:35)
[2019-06-17 12:52] LABS: Glucose Point of Care 120 (65-105)
--- NOTE | 2019-06-17 12:56 | WPDINFPN2 ---
Progress Note: A&P Assessment and Plan (1) UTI due to extended-spectrum beta lactamase (ESBL) producing Escherichia coli: Code(s): N39.0 - Urinary tract infection, site not specified; B96.29 - Other Escherichia coli [E. 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 Recent UTI, stable 2. Decub ulcer , POD #3, Acinetobacter isolated. The yeast is not a pathogen, and further identification is not needed REC Stop Imipenem. Begin AmpSulbactam # 1 /7 days, and Gentamicin # 1 / [address] Subjective Date/time seen: 06/17/19 12:56 Interval history: no complaints as usual. Good appetite Exam Narrative: Exam Narrative: afebrile Const: General: no acute distress Eyes: General: appearance normal, both eyes and all related structures Resp: Effort & Inspection: normal respiratory effort Auscultation: clear to auscultation bilaterally Cardio: Rate: regular rate Rhythm: regular rhythm Heart sounds: no murmurs GI: Inspection: non-distended GI Palp: Yes Soft to palpation and No Tenderness to palpation present (GI) Urinary Catheter: Urinary Catheter: patent and draining and urine clear Objective Data Vital Signs Vital Signs: Vital Signs - 24 hr 06/16/19 14:00 06/16/19 16:51 06/16/19 22:00 Temperature 36.7 C 36.0 C L Pulse Rate 62 74 67 Respiratory Rate 16 16 Blood Pressure 107/49 L 118/47 L Pulse Oximetry 98 99 06/17/19 05:40 06/17/19 08:15 Temperature 36.1 C L Pulse Rate 71 68 Respiratory Rate 16 Blood Pressure 123/45 L Pulse Oximetry 98 Intake/Output Intake/Output: Intake & Output 06/14/19 06/15/19 06/16/19 06/17/19 23:59 23:59 23:59 23:59 Intake Total 2026 5673 4220 1900 Output Total 3150 2050 4000 2100 Balance -1123 3623 220 -200 Meds/Results Medications: Active Medications Generic Name Dose Route Start Last Admin Trade Name Freq PRN Reason Stop Dose Admin Acetaminophen 650 mg 06/15/19 20:18 06/16/19 05:09 Tylenol Tablet PO 650 mg Q4H PRN Administration Headache Hydrocodone Bitart/Acetaminophen 1 tab 06/14/19 13:57 [place] 5-325 Mg PO Q4H PRN Pain Rated 4-6 Hydrocodone Bitart/Acetaminophen 1 tab 06/14/19 13:57 06/16/19 16:59 [place] 10-325 Mg PO 1 tab Q4H PRN Administration Pain Rated 7-10 Albuterol 2.5 mg 06/13/19 05:00 Albuterol Sulf Neb 2.5mg/0.5ml INHALATION TID PRN SHORTNESS OF BREATH Amlodipine Besylate 5 mg 06/13/19 21:00 06/16/19 21:02 Norvasc PO 5 mg HS SHAN Administration Aspirin 325 mg 06/13/19 09:00 06/17/19 08:15 Aspirin Ec PO 325 mg DAILY SHAN Administration Atorvastatin Calcium 80 mg 06/13/19 21:00 06/16/19 21:02 Lipitor PO 80 mg HS SHAN Administration Dextrose 12.5 gm 06/13/19 02:16 Dextrose 50% Syringe IV PUSH PRN PRN Hypoglycemia Protocol Dicyclomine HCl 20 mg 06/13/19 13:01 Bentyl Capsule PO QID PRN Abdominal Cramping Enoxaparin Sodium 40 mg 06/13/19 09:00 06/17/19 08:16 Lovenox SUB-Q 40 mg DAILY SHAN Administration Finasteride 5 mg 06/13/19 09:00 06/17/19 08:14 Proscar PO 5 mg DAILY SHAN Administration Furosemide 20 mg 06/13/19 09:00 06/17/19 08:14 Lasix Tablet PO 20 mg DAILY SHAN Administration Gabapentin 300 mg 06/13/19 09:00 06/17/19 12:55 Neurontin PO 300 mg TID SHAN Administration Glucagon 1 mg 06/13/19 02:16 Glucagon For Inj IM PRN PRN Hypoglycemia Protocol Glucose 15 gm 06/13/19 02:16 06/17/19 08:21 Glutose 15 PO 15 gm PRN PRN Administration Hypoglycemia Protocol Dextrose 1,000 mls @ 100 mls/hr 06/13/19 02:16 Dextrose 5% 1,000 Ml IVPB PRN PRN Hypoglycemia Protocol Sodium Chloride 1,000 mls @ 100 mls/hr 06/16/19 23:10 06/17/19 11:34 Normal Saline Iv IV CONT 100 mls/hr
[2019-06-17] MEDS: AMPICILLIN SULB 3 GM/NS 100 ML 3 GM/100 ML VIAL IVPB ×3 (13:36→23:38)
[2019-06-17 14:00] VITALS: BP 144/67; PULSE 77; RESP 16; TEMP 36.7; O2SAT 96
--- NOTE | 2019-06-17 14:14 | PM.PNGS ---
Progress Note: A&P Assessment and Plan (1) Decubitus ulcer of left ischium, unstageable: Code(s): L89.320 - Pressure ulcer of left buttock, unstageable Status: Acute Assessment and Plan: The left ischial wound looks good today without any significant necrotic tissue. Unable to continue with VAC therapy due to moisture of skin around the area and the close proximity of the rectum with multiple bowel movements creating issues with keeping the wound VAC dressing intact. Will initiate silver gel dressing changes daily with 4 x 4 gauze packing and ABDs. Intraoperative cultures showed growth of Acinetobacter calc-kalli cmplx sensitive to ampicillin. Continue antibiotics per ID. Minimize pressure to the buttocks. I spoke with care coordination about recommending a [employer] wheelchair cushion when he is transferred back to the [facility] to help with wound healing and reduce complications. We can use a waffle cushion seat if he is sitting up while inpatient, otherwise he should turn on his sides while lying in bed. (2) Cellulitis and abscess of buttock: Code(s): L02.31 - Cutaneous abscess of buttock; L03.317 - Cellulitis of buttock Status: Acute Assessment and Plan: See plan above. (3) UTI due to extended-spectrum beta lactamase (ESBL) producing Escherichia coli: Code(s): N39.0 - Urinary tract infection, site not specified; B96.29 - Other Escherichia coli [E. coli] as the cause of diseases classified elsewhere; Z16.12 - Extended spectrum beta lactamase (ESBL) resistance Status: Chronic Assessment and Plan: Management per Infectious Disease and hospitalist service. Additional Plan Discussed the patient's case and plan of care with Dr. Schmid. Subjective Subjective Date/Time Seen: 06/17/19 13:08 Post Op day: 3 (Debridement of necrotizing skin, subcutaneous, and muscle of the left ischium 06/14/19) Patient reports: no new complaints, feels better, tolerating a regular diet, flatus and bowel movement Interval history: Patient seen and examined. No significant complaints today. Denies any pain at this time. The patient is seen with the wound care nurses and we were called to the bedside due to the wound VAC dressing following off. Review of Systems Review of Systems: All systems reviewed & are unremarkable except as noted in HPI and below Exam Skin: Other: Wound VAC removed. Left ischial wound appears to have even more granulation tissue today and showing good signs of healing. No necrotic tissue or purulence drainage. Surrounding skin appears healthy. Objective Data Vital Signs Vital Signs: Vital Signs - 24 hr 06/16/19 16:51 06/16/19 22:00 06/17/19 05:40 Temperature 36.0 C L 36.1 C L Pulse Rate 74 67 71 Respiratory Rate 16 16 Blood Pressure 118/47 L 123/45 L Pulse Oximetry 99 98 06/17/19 08:15 Temperature Pulse Rate 68 Respiratory Rate Blood Pressure Pulse Oximetry Intake/Output Intake/Output: Intake & Output 06/14/19 06/15/19 06/16/19 06/17/19 23:59 23:59 23:59 23:59 Intake Total 2027 5673 4220 1900 Output Total 3150 2050 4000 2100 Balance -1123 3623 220 -200 Meds/Results Medications: Active Medications Generic Name Dose Route Start Last Admin Trade Name Freq PRN Reason Stop Dose Admin Acetaminophen 650 mg 06/15/19 20:18 06/16/19 05:09 Tylenol Tablet PO 650 mg Q4H PRN Administration Headache Hydrocodone Bitart/Acetaminophen 1 tab 06/14/19 13:57 [place] 5-325 Mg PO Q4H PRN Pain Rated 4-6 Hydrocodone Bitart/Acetaminophen 1 tab 06/14/19 13:57 06/16/19 16:59 [place] 10-325 Mg PO 1 tab Q4H PRN Administration Pain Rated 7-10 Albuterol 2.5 mg 06/13/19 05:00 Albuterol Sulf Neb 2.5mg/0.5ml INHALATION TID PRN SHORTNESS OF BREATH Amlodipine Besylate 5 mg 06/13/19 21:00 06/16/19 21:02 Norvasc PO 5 mg HS SHAN Administration Aspirin 325 mg 06/13/19 09:00 06/17/19 08:15 As
[2019-06-17] MEDS: GENTAMICIN SULFATE INJ 320 MG in DEXTROSE 5% 100 ML 100 MG IVPB (15:05)
--- NOTE | 2019-06-17 16:46 | PM.IMPN ---
Progress Note: A&P Assessment and Plan (1) Cellulitis and abscess of buttock: Code(s): L02.31 - Cutaneous abscess of buttock; L03.317 - Cellulitis of buttock Status: Acute Assessment and Plan: S/p debridement Blood cultures negative to date. Acinetobacter from wound culture Ampicillin/sulbactam day 1 Gent day 1 (2) UTI due to extended-spectrum beta lactamase (ESBL) producing Escherichia coli: Code(s): N39.0 - Urinary tract infection, site not specified; B96.29 - Other Escherichia coli [E. coli] as the cause of diseases classified elsewhere; Z16.12 - Extended spectrum beta lactamase (ESBL) resistance Status: Chronic Assessment and Plan: The patient is being treated Primaxin for ESBL e. coli UTI No urinary symptoms today Unasyn (3) Syncope and collapse: Code(s): R55 - Syncope and collapse Status: Acute Assessment and Plan: He did not lose consciousness and that he lost balance shifting in his chair and fell. Carotids negative today. CT unremarkable for bleed. Patient has had short runs of Vtach today on tele, however patient remains asymptomatic. Several pauses noted as well; otherwise sinus rhythm. Echo showed moderate aortic valve sclerosis without stenosis, diastolic dysfunction, and EF of 55-65% Given Vtach, continue Telemetry Fall precautions, (4) Chronic anemia: Code(s): D64.9 - Anemia, unspecified Status: Chronic Assessment and Plan: Stable, No signs of acute blood loss. Monitor H/H Transfuse prn. 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 mellitus care home insulin use: with care home use Diabetes mellitus complication status: with circulatory complication Diabetes mellitus complication detail: with other circulatory complications Qualified Code(s): E11.59 - Type 2 diabetes mellitus with other circulatory complications; Z79.4 - [facility] (current) use of insulin Code(s): E11.9 - Type 2 diabetes mellitus without complications Status: Chronic Assessment and Plan: BS below 150 Accuchecks, SSI Coverage, Hypoglycemic protocol Continue Lantus 60 units and metformin (6) Hyperlipidemia: Qualifiers: Hyperlipidemia type: unspecified Qualified Code(s): E78.5 - Hyperlipidemia, unspecified Code(s): E78.5 - Hyperlipidemia, unspecified Status: Chronic Assessment and Plan: Continue atorvastatin PO. (7) Dementia: Qualifiers: Dementia type: unspecified type Dementia behavioral disturbance: without behavioral disturbance Qualified Code(s): F03.90 - Unspecified dementia without behavioral disturbance Code(s): F03.90 - Unspecified dementia without behavioral disturbance Status: Chronic Assessment and Plan: Continue Namenda (8) CAD (coronary artery disease): Qualifiers: Coronary Disease-Associated Artery/Lesion type: unspecified vessel or lesion type [place] vs. transplanted heart: [place] heart Associated angina: without angina Qualified Code(s): I25.10 - Atherosclerotic heart disease of [place] coronary artery without angina pectoris Code(s): I25.10 - Atherosclerotic heart disease of [place] coronary artery without angina pectoris Status: Chronic Assessment and Plan: No chest pain today. Continue ASA and beta cassius. Monitor for chest pain. (9) BPH (benign prostatic hyperplasia): Qualifiers: Lower urinary tract symptom presence: unspecified whether lower urinary tract symptoms present Qualified Code(s): N40.0 - Benign prostatic hyperplasia without lower urinary tract symptoms
[2019-06-17] MEDS: SILVERGEL (ELTA) 45 ML 1 APPLIC TOPICAL (17:27)
[2019-06-17 17:32] VITALS: PULSE 72
[2019-06-17 18:05] LABS: Glucose Point of Care 104 (65-105)
[2019-06-17 20:00] VITALS: PULSE 63; RESP 16; O2SAT 100
[2019-06-17] MEDS: AMLODIPINE BESYLATE 5 MG TABLET PO (20:52)
[2019-06-17] MEDS: ATORVASTATIN 40 MG TABLET 80 MG PO (20:52)
[2019-06-17] MEDS: INSULIN GLARGINE (*BKC) 100 UNITS/ML 60 UNITS SUB-Q (20:53)
[2019-06-17 22:00] VITALS: BP 114/41; PULSE 63; RESP 16; TEMP 35.9; O2SAT 100
[2019-06-17 23:10] LABS: Glucose Point of Care 177 (65-105)
[2019-06-18] MEDS: SODIUM CHLORIDE 0.9% IV 1,000 ML 100 ML IV CONT ×3 (00:22→20:55)
[2019-06-18 02:35] LABS: Gentamicin Random 2.9 ug/mL (5.0-12.0)
[2019-06-18 06:00] VITALS: BP 140/62; PULSE 70; RESP 16; TEMP 35.8; O2SAT 100
[2019-06-18] MEDS: AMPICILLIN SULB 3 GM/NS 100 ML 3 GM/100 ML VIAL IVPB ×3 (06:27→17:14)
[2019-06-18] MEDS: ENOXAPARIN 40 MG/0.4 ML SYRINGE SUB-Q (07:49)
[2019-06-18] MEDS: SIMETHICONE 125 MG CHEW TAB PO ×4 (07:49→20:58)
[2019-06-18] MEDS: GABAPENTIN 300 MG CAPSULE PO ×3 (07:50→17:14)
[2019-06-18] MEDS: FINASTERIDE 5 MG TABLET PO (07:50)
[2019-06-18] MEDS: ASPIRIN 325 MG ENTERIC TABLET PO (07:50)
[2019-06-18] MEDS: MEMANTINE 5 MG TABLET PO ×2 (07:50→17:14)
[2019-06-18] MEDS: CHOLECALCIFEROL 1,000 UNIT TABLET 1000 UNITS PO (07:50)
[2019-06-18] MEDS: lisinopriL 20 MG TABLET 40 MG PO (07:51)
[2019-06-18] MEDS: FUROSEMIDE 20 MG TABLET PO (07:51)
[2019-06-18] MEDS: POLYSACCHARIDE IRON COMPLEX 150 MG CAPSULE PO ×2 (07:51→17:14)
[2019-06-18] MEDS: METOPROLOL TARTRATE 25 MG TABLET PO ×2 (07:52→17:14)
[2019-06-18] MEDS: ACETAMINOPHEN 325 MG TABLET 650 MG PO ×3 (07:56→20:59)
[2019-06-18 08:00] VITALS: PULSE 70; RESP 16; O2SAT 100
[2019-06-18 08:22] LABS: Glucose Point of Care 53 (65-105)
[2019-06-18 08:22] LABS: Glucose Point of Care 160 (65-105)
[2019-06-18] MEDS: SILVERGEL (ELTA) 45 ML 1 APPLIC TOPICAL (10:32)
[2019-06-18 12:23] LABS: Glucose Point of Care 144 (65-105)
--- NOTE | 2019-06-18 13:09 | PM.IMPN ---
Progress Note: A&P Assessment and Plan (1) Cellulitis and abscess of buttock: Code(s): L02.31 - Cutaneous abscess of buttock; L03.317 - Cellulitis of buttock Status: Acute Assessment and Plan: S/p debridement Blood cultures negative to date. Acinetobacter from wound culture Ampicillin/sulbactam day 2 Gent day 2 (2) UTI due to extended-spectrum beta lactamase (ESBL) producing Escherichia coli: Code(s): N39.0 - Urinary tract infection, site not specified; B96.29 - Other Escherichia coli [E. coli] as the cause of diseases classified elsewhere; Z16.12 - Extended spectrum beta lactamase (ESBL) resistance Status: Chronic Assessment and Plan: The patient was being treated Primaxin for ESBL e. coli UTI No urinary symptoms today Now on Unasyn day 2 (3) Syncope and collapse: Code(s): R55 - Syncope and collapse Status: Acute Assessment and Plan: He did not lose consciousness and that he lost balance shifting in his chair and fell. Carotids negative today. CT unremarkable for bleed. Patient has had short runs of Vtach today on tele, however patient remains asymptomatic. Several pauses noted as well; otherwise sinus rhythm. Echo showed moderate aortic valve sclerosis without stenosis, diastolic dysfunction, and EF of 55-65% No further episodes D/c tele (4) Chronic anemia: Code(s): D64.9 - Anemia, unspecified Status: Chronic Assessment and Plan: Stable, No signs of acute blood loss. 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 (7) Dementia: Qualifiers: Dementia type: unspecified type Dementia behavioral disturbance: without behavioral disturbance Qualified Code(s): F03.90 - Unspecified dementia without behavioral disturbance Code(s): F03.90 - Unspecified dementia without behavioral disturbance Status: Chronic Assessment and Plan: Continue Namenda (8) CAD (coronary artery disease): Qualifiers: Coronary Disease-Associated Artery/Lesion type: unspecified vessel or lesion type [place] vs. transplanted heart: [place] heart Associated angina: without angina Qualified Code(s): I25.10 - Atherosclerotic heart disease of [place] coronary artery without angina pectoris Code(s): I25.10 - Atherosclerotic heart disease of [place] coronary artery without angina pectoris Status: Chronic Assessment and Plan: No chest pain today. Continue ASA and beta cassius. Monitor for chest pain. (9) BPH (benign prostatic hyperplasia): Qualifiers: Lower urinary tract symptom presence: unspecified whether lower urinary tract symptoms present Qualified Code(s): N40.0 - Benign prostatic hyperplasia without lower urinary tract symptoms Code(s): N40.0 - Yonis
[2019-06-18 14:00] VITALS: BP 115/57; PULSE 70; RESP 16; TEMP 36.9; O2SAT 99
--- NOTE | 2019-06-18 15:13 | WPDINFPN2 ---
Progress Note: A&P Assessment and Plan (1) UTI due to extended-spectrum beta lactamase (ESBL) producing Escherichia coli: Code(s): N39.0 - Urinary tract infection, site not specified; B96.29 - Other Escherichia coli [E. 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 Recent UTI, resolved 2. Decub ulcer , POD #4, Acinetobacter isolated. The yeast is not a pathogen, and further identification is not needed REC Off Imipenem. Continue AmpSulbactam # 2 /7 days, and Gentamicin # 2 / [address] Re discharge planning: the AmpSulbactam must be given q6 hours, and no alternative is available. Subjective Date/time seen: 06/18/19 15:13 Interval history: pain in ulcer bed when up in chair for a long period Exam Narrative: Exam Narrative: afebrile Const: General: no acute distress Eyes: General: appearance normal, both eyes and all related structures Resp: Effort & Inspection: normal respiratory effort Auscultation: clear to auscultation bilaterally Cardio: Rate: regular rate Rhythm: regular rhythm Heart sounds: no murmurs GI: Inspection: non-distended GI Palp: Yes Soft to palpation and No Tenderness to palpation present (GI) : Male General Exam: Yes normal external exam Other: no catheter Objective Data Vital Signs Vital Signs: Vital Signs - 24 hr 06/17/19 17:32 06/17/19 20:00 06/17/19 22:00 Temperature 35.9 C L Pulse Rate 72 63 63 Respiratory Rate 16 16 Blood Pressure 114/41 L Pulse Oximetry 100 100 06/18/19 06:00 06/18/19 08:00 06/18/19 14:00 Temperature 35.8 C L 36.9 C Pulse Rate 70 70 70 Respiratory Rate 16 16 16 Blood Pressure 140/62 115/57 L Pulse Oximetry 100 100 99 Intake/Output Intake/Output: Intake & Output 06/15/19 06/16/19 06/17/19 06/18/19 23:59 23:59 23:59 23:59 Intake Total 5673 4220 4498 2660 Output Total 2050 4000 3700 800 Balance 3623 443 699 8068 Meds/Results Medications: Active Medications Generic Name Dose Route Start Last Admin Trade Name Freq PRN Reason Stop Dose Admin Acetaminophen 650 mg 06/15/19 20:18 06/18/19 13:01 Tylenol Tablet PO 650 mg Q4H PRN Administration Headache Hydrocodone Bitart/Acetaminophen 1 tab 06/14/19 13:57 [place] 5-325 Mg PO Q4H PRN Pain Rated 4-6 Hydrocodone Bitart/Acetaminophen 1 tab 06/14/19 13:57 06/16/19 16:59 [place] 10-325 Mg PO 1 tab Q4H PRN Administration Pain Rated 7-10 Albuterol 2.5 mg 06/13/19 05:00 Albuterol Sulf Neb 2.5mg/0.5ml INHALATION TID PRN SHORTNESS OF BREATH Amlodipine Besylate 5 mg 06/13/19 21:00 06/17/19 20:52 Norvasc PO 5 mg HS SHAN Administration Aspirin 325 mg 06/13/19 09:00 06/18/19 07:50 Aspirin Ec PO 325 mg DAILY SHAN Administration Atorvastatin Calcium 80 mg 06/13/19 21:00 06/17/19 20:52 Lipitor PO 80 mg HS SHAN Administration Dextrose 12.5 gm 06/13/19 02:16 Dextrose 50% Syringe IV PUSH PRN PRN Hypoglycemia Protocol Dicyclomine HCl 20 mg 06/13/19 13:01 Bentyl Capsule PO QID PRN Abdominal Cramping Enoxaparin Sodium 40 mg 06/13/19 09:00 06/18/19 07:49 Lovenox SUB-Q 40 mg DAILY SHAN Administration Finasteride 5 mg 06/13/19 09:00 06/18/19 07:50 Proscar PO 5 mg DAILY SHAN Administration Furosemide 20 mg 06/13/19 09:00 06/18/19 07:51 Lasix Tablet PO 20 mg DAILY SHAN Administration Gabapentin 300 mg 06/13/19 09:00 06/18/19 12:53 Neurontin PO 300 mg TID SHAN Administration Glucagon 1 mg 06/13/19 02:16 Glucagon For Inj IM PRN PRN Hypoglycemia Protocol Glucose 15 gm 06/13/19 02:16 06/17/19 08:21 Glutose 15 PO 15 gm PRN PRN Administration Hypoglycemia Protocol Dextrose 1,000 mls @ 100 mls/hr 06/13/19 02:16 Dextrose 5% 1,000 Ml IVPB PRN PRN
[2019-06-18 16:21] LABS: Glucose Point of Care 155 (65-105)
[2019-06-18] MEDS: AMLODIPINE BESYLATE 5 MG TABLET PO (20:57)
[2019-06-18] MEDS: ATORVASTATIN 40 MG TABLET 80 MG PO (20:58)
[2019-06-18] MEDS: INSULIN GLARGINE (*BKC) 100 UNITS/ML 60 UNITS SUB-Q (21:05)
[2019-06-18 22:00] VITALS: BP 141/50; PULSE 65; RESP 20; TEMP 36.3; O2SAT 99
[2019-06-18 22:07] LABS: Glucose Point of Care 169 (65-105)
[2019-06-19] MEDS: AMPICILLIN SULB 3 GM/NS 100 ML 3 GM/100 ML VIAL IVPB ×5 (00:20→23:13)
[2019-06-19] MEDS: SODIUM CHLORIDE 0.9% IV 1,000 ML 100 ML IV CONT ×3 (05:51→23:11)
[2019-06-19] MEDS: ACETAMINOPHEN 325 MG TABLET 650 MG PO ×2 (05:52→21:03)
[2019-06-19 06:00] VITALS: BP 135/59; PULSE 61; RESP 18; TEMP 36.5; O2SAT 100
[2019-06-19] MEDS: GLUCOSE ORAL GEL 15 GM OF GLUCSE IN 37.5 GM TUBE PO (07:41)
[2019-06-19] MEDS: lisinopriL 20 MG TABLET 40 MG PO (07:43)
[2019-06-19] MEDS: GABAPENTIN 300 MG CAPSULE PO ×3 (07:44→17:10)
[2019-06-19] MEDS: FUROSEMIDE 20 MG TABLET PO (07:44)
[2019-06-19] MEDS: MEMANTINE 5 MG TABLET PO ×2 (07:44→17:09)
[2019-06-19] MEDS: METOPROLOL TARTRATE 25 MG TABLET PO ×2 (07:44→17:09)
[2019-06-19] MEDS: POLYSACCHARIDE IRON COMPLEX 150 MG CAPSULE PO ×2 (07:45→17:09)
[2019-06-19] MEDS: FINASTERIDE 5 MG TABLET PO (07:45)
[2019-06-19] MEDS: ENOXAPARIN 40 MG/0.4 ML SYRINGE SUB-Q (07:45)
[2019-06-19] MEDS: CHOLECALCIFEROL 1,000 UNIT TABLET 1000 UNITS PO (07:45)
[2019-06-19] MEDS: ASPIRIN 325 MG ENTERIC TABLET PO (07:45)
[2019-06-19] MEDS: SIMETHICONE 125 MG CHEW TAB PO ×4 (07:45→21:03)
[2019-06-19] MEDS: SILVERGEL (ELTA) 45 ML 1 APPLIC TOPICAL (07:48)
[2019-06-19 08:00] VITALS: PULSE 61; RESP 18; O2SAT 100
[2019-06-19 08:06] LABS: Hematocrit 33.6 % (42.0-52.0); Hemoglobin 10.6 g/dL (14.0-18.0); Mean Corpuscular HGB Conc 31.5 g/dl (32-36); Mean Corpuscular Hemoglobin 26.9 pg (26-34); Mean Corpuscular Volume 85.3 fl (80-100); Mean Platelet Volume 10.1 fl (7.4-10.4); Platelet Count Result 427 k/mm3 (150-375); Red Blood Count 3.94 M/mm3 (4.6-6.20); Red Cell Distribution Width 16.4 % (11.5-14.5); White Blood Count 11.7 K/mm3 (4.5-10.0)
[2019-06-19 08:25] LABS: Blood Urea Nitrogen 11 mg/dL (9-20); Calcium 8.6 mg/dL (8.4-10.2); Carbon Dioxide 29 mmol/L (22-30); Chloride 101 mmol/L (98-107); Estimated CRCL calculation 86 ml/min; Estimated Glomerular Filt Rate > 60; Glucose 55 mg/dL (75-110); Potassium 3.6 mmol/L (3.4-5.0); Sodium 140 mmol/L (137-145)
[2019-06-19 08:31] LABS: Glucose Point of Care 80 (65-105)
[2019-06-19 08:31] LABS: Glucose Point of Care 48 (65-105)
[2019-06-19 08:31] LABS: Glucose Point of Care 51 (65-105)
[2019-06-19 08:31] LABS: Glucose Point of Care 59 (65-105)
[2019-06-19 08:31] LABS: Glucose Point of Care 45 (65-105)
[2019-06-19 09:44] LABS: Glucose Point of Care 133 (65-105)
[2019-06-19 12:35] LABS: Glucose Point of Care 115 (65-105)
[2019-06-19 14:00] VITALS: BP 143/59; PULSE 64; RESP 16; TEMP 36.2; O2SAT 100
--- NOTE | 2019-06-19 18:15 | PM.IMPN ---
Progress Note: A&P Assessment and Plan (1) Cellulitis and abscess of buttock: Code(s): L02.31 - Cutaneous abscess of buttock; L03.317 - Cellulitis of buttock Status: Acute Assessment and Plan: S/p debridement Blood cultures negative to date. Acinetobacter from wound culture Ampicillin/sulbactam day 3 Gent day 3/ Due to bed availability at and [facility] nursing shortage for the weekend, discharge is planned for 06/21. (2) UTI due to extended-spectrum beta lactamase (ESBL) producing Escherichia coli: Code(s): N39.0 - Urinary tract infection, site not specified; B96.29 - Other Escherichia coli [E. coli] as the cause of diseases classified elsewhere; Z16.12 - Extended spectrum beta lactamase (ESBL) resistance Status: Chronic Assessment and Plan: The patient was being treated Primaxin for ESBL e. coli UTI No urinary symptoms today Now on Unasyn day 3 (3) Syncope and collapse: Code(s): R55 - Syncope and collapse Status: Acute Assessment and Plan: He did not lose consciousness and that he lost balance shifting in his chair and fell. Carotids negative today. CT unremarkable for bleed. Patient has had short runs of Vtach today on tele, however patient remains asymptomatic. Several pauses noted as well; otherwise sinus rhythm. Echo showed moderate aortic valve sclerosis without stenosis, diastolic dysfunction, and EF of 55-65% No further episodes (4) Chronic anemia: Code(s): D64.9 - Anemia, unspecified Status: Chronic Assessment and Plan: Stable, No signs of acute blood loss. 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 (7) Dementia: Qualifiers: Dementia type: unspecified type Dementia behavioral disturbance: without behavioral disturbance Qualified Code(s): F03.90 - Unspecified dementia without behavioral disturbance Code(s): F03.90 - Unspecified dementia without behavioral disturbance Status: Chronic Assessment and Plan: Continue Namenda (8) CAD (coronary artery disease): Qualifiers: Coronary Disease-Associated Artery/Lesion type: unspecified vessel or lesion type [place] vs. transplanted heart: [place] heart Associated angina: without angina Qualified Code(s): I25.10 - Atherosclerotic heart disease of [place] coronary artery without angina pectoris Code(s): I25.10 - Atherosclerotic heart disease of [place] coronary artery without angina pectoris Status: Chronic Assessment and Plan: No chest pain today. Continue ASA and beta cassius. Monitor for chest pain. (9) BPH (benign prostatic hyperplasia): Qualifiers: Lower urinary tract symptom presence: unspecified whether lower urinary tract symptoms present Qualified Code
[2019-06-19] MEDS: ATORVASTATIN 40 MG TABLET 80 MG PO (21:03)
[2019-06-19] MEDS: AMLODIPINE BESYLATE 5 MG TABLET PO (21:04)
[2019-06-19] MEDS: INSULIN GLARGINE (*BKC) 100 UNITS/ML 30 UNITS SUB-Q (21:04)
[2019-06-19 21:09] LABS: Glucose Point of Care 165 (65-105)
[2019-06-19 22:00] VITALS: BP 137/65; PULSE 68; RESP 20; TEMP 36.3; O2SAT 98
[2019-06-20] VITALS (7 sets, daily range): BP systolic 105–133; BP diastolic 43–55; PULSE 63–81; RESP 18–21; TEMP 36.1–36.6; O2SAT 97–100
[2019-06-20] MEDS: AMPICILLIN SULB 3 GM/NS 100 ML 3 GM/100 ML VIAL IVPB ×4 (05:06→23:42)
[2019-06-20] MEDS: GLUCOSE ORAL GEL 15 GM OF GLUCSE IN 37.5 GM TUBE PO ×2 (05:14→05:31)
[2019-06-20 05:52] LABS: Glucose Point of Care 53 (65-105)
[2019-06-20 05:52] LABS: Glucose Point of Care 90 (65-105)
[2019-06-20 05:52] LABS: Glucose Point of Care 62 (65-105)
[2019-06-20] MEDS: ACETAMINOPHEN 325 MG TABLET 650 MG PO ×2 (08:35→20:41)
[2019-06-20] MEDS: FUROSEMIDE 20 MG TABLET PO (08:36)
[2019-06-20] MEDS: SIMETHICONE 125 MG CHEW TAB PO ×4 (08:36→20:38)
[2019-06-20] MEDS: METOPROLOL TARTRATE 25 MG TABLET PO ×2 (08:36→17:28)
[2019-06-20] MEDS: ENOXAPARIN 40 MG/0.4 ML SYRINGE SUB-Q (08:37)
[2019-06-20] MEDS: MEMANTINE 5 MG TABLET PO ×2 (08:37→17:28)
[2019-06-20] MEDS: POLYSACCHARIDE IRON COMPLEX 150 MG CAPSULE PO ×2 (08:37→17:27)
[2019-06-20] MEDS: ASPIRIN 325 MG ENTERIC TABLET PO (08:37)
[2019-06-20] MEDS: FINASTERIDE 5 MG TABLET PO (08:37)
[2019-06-20] MEDS: CHOLECALCIFEROL 1,000 UNIT TABLET 1000 UNITS PO (08:37)
[2019-06-20] MEDS: GABAPENTIN 300 MG CAPSULE PO ×3 (08:37→17:27)
[2019-06-20] MEDS: SILVERGEL (ELTA) 45 ML 1 APPLIC TOPICAL (08:38)
[2019-06-20 11:58] LABS: Glucose Point of Care 143 (65-105)
--- NOTE | 2019-06-20 14:55 | P.PNIM_ITS ---
Progress Note: A&P Assessment and Plan (1) Cellulitis and abscess of buttock: Code(s): L02.31 - Cutaneous abscess of buttock; L03.317 - Cellulitis of buttock Status: Acute Assessment and Plan: * S/p debridement * Blood cultures negative to date. * Acinetobacter from wound culture * Ampicillin/sulbactam day 4 (Gent day 3/3 on 06/19) * Due to bed availability at and [facility] nursing shortage for the weekend, [facility] is planned for 06/21. (2) UTI due to extended-spectrum beta lactamase (ESBL) producing Escherichia coli: Code(s): N39.0 - Urinary tract infection, site not specified; B96.29 - Other Escherichia coli [E. coli] as the cause of diseases classified elsewhere; Z16.12 - Extended spectrum beta lactamase (ESBL) resistance Status: Chronic Assessment and Plan: * The patient was being treated Primaxin for ESBL e. coli UTI * No urinary symptoms today * Now on Unasyn day 3 (3) Syncope and collapse: Code(s): R55 - Syncope and collapse Status: Acute Assessment and Plan: He did not lose consciousness and that he lost balance shifting in his chair and fell. Carotids negative today. CT unremarkable for bleed. Patient has had short runs of Vtach today on tele, however patient remains asymptomatic. Several pauses noted as well; otherwise sinus rhythm. Echo showed moderate aortic valve sclerosis without stenosis, diastolic dysfunction, and EF of 55-65% * No further episodes (4) Chronic anemia: Code(s): D64.9 - Anemia, unspecified Status: Chronic Assessment and Plan: Stable, No signs of acute blood loss. 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 (7) Dementia: Qualifiers: Dementia type: unspecified type Dementia behavioral disturbance: without behavioral disturbance Qualified Code(s): F03.90 - Unspecified dementia without behavioral disturbance Code(s): F03.90 - Unspecified dementia without behavioral disturbance Status: Chronic Assessment and Plan: Continue Namenda (8) CAD (coronary artery disease): Qualifiers: Coronary Disease-Associated Artery/Lesion type: unspecified vessel or lesion type [place] vs. transplanted heart: [place] heart Associated angina: without angina Qualified Code(s): I25.10 - Atherosclerotic heart disease of [place] coronary artery without angina pectoris Code(s): I25.10 - Atherosclerotic heart disease of [place] coronary arter
--- NOTE | 2019-06-20 14:55 | PM.IMPN ---
Progress Note: A&P Assessment and Plan (1) Cellulitis and abscess of buttock: Code(s): L02.31 - Cutaneous abscess of buttock; L03.317 - Cellulitis of buttock Status: Acute Assessment and Plan: S/p debridement Blood cultures negative to date. Acinetobacter from wound culture Ampicillin/sulbactam day 4 (Gent day 3/3 on 06/19) Due to bed availability at and [facility] nursing shortage for the weekend, discharge is planned for 06/21. (2) UTI due to extended-spectrum beta lactamase (ESBL) producing Escherichia coli: Code(s): N39.0 - Urinary tract infection, site not specified; B96.29 - Other Escherichia coli [E. coli] as the cause of diseases classified elsewhere; Z16.12 - Extended spectrum beta lactamase (ESBL) resistance Status: Chronic Assessment and Plan: The patient was being treated Primaxin for ESBL e. coli UTI No urinary symptoms today Now on Unasyn day 3 (3) Syncope and collapse: Code(s): R55 - Syncope and collapse Status: Acute Assessment and Plan: He did not lose consciousness and that he lost balance shifting in his chair and fell. Carotids negative today. CT unremarkable for bleed. Patient has had short runs of Vtach today on tele, however patient remains asymptomatic. Several pauses noted as well; otherwise sinus rhythm. Echo showed moderate aortic valve sclerosis without stenosis, diastolic dysfunction, and EF of 55-65% No further episodes (4) Chronic anemia: Code(s): D64.9 - Anemia, unspecified Status: Chronic Assessment and Plan: Stable, No signs of acute blood loss. Monitor H/H 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 mellitus salvage determiner insulin use: with halfway use Diabetes mellitus complication status: with circulatory complication Diabetes mellitus complication detail: with other circulatory complications Qualified Code(s): E11.59 - Type 2 diabetes mellitus with other circulatory complications; Z79.4 - intermodal customer service (current) use of insulin Code(s): E11.9 - Type 2 diabetes mellitus without complications Status: Chronic Assessment and Plan: BS below 150 Accuchecks, SSI Coverage, Hypoglycemic protocol 06/19 FBS 55, so reduced Lantus from 60 to 30 U (6) Hyperlipidemia: Qualifiers: Hyperlipidemia type: unspecified Qualified Code(s): E78.5 - Hyperlipidemia, unspecified Code(s): E78.5 - Hyperlipidemia, unspecified Status: Chronic Assessment and Plan: Continue atorvastatin PO. (7) Dementia: Qualifiers: Dementia type: unspecified type Dementia behavioral disturbance: without behavioral disturbance Qualified Code(s): F03.90 - Unspecified dementia without behavioral disturbance Code(s): F03.90 - Unspecified dementia without behavioral disturbance Status: Chronic Assessment and Plan: Continue Namenda (8) CAD (coronary artery disease): Qualifiers: Coronary Disease-Associated Artery/Lesion type: unspecified vessel or lesion type [place] vs. transplanted heart: [place] heart Associated angina: without angina Qualified Code(s): I25.10 - Atherosclerotic heart disease of [place] coronary artery without angina pectoris Code(s): I25.10 - Atherosclerotic heart disease of [place] coronary artery without angina pectoris Status: Chronic Assessment and Plan: No chest pain today. Continue ASA and beta cassius. Monitor for chest pain. (9) BPH (benign prostatic hyperplasia): Qualifiers: Lower urinary tract symptom presence: unspecified whether lower urinary tract symptoms present Victoriano
[2019-06-20 16:58] LABS: Glucose Point of Care 104 (65-105)
[2019-06-20] MEDS: AMLODIPINE BESYLATE 5 MG TABLET PO (20:37)
[2019-06-20] MEDS: ATORVASTATIN 40 MG TABLET 80 MG PO (20:37)
[2019-06-20] MEDS: INSULIN GLARGINE (*BKC) 100 UNITS/ML 20 UNITS SUB-Q (20:44)
[2019-06-20 20:55] LABS: Glucose Point of Care 147 (65-105)
[2019-06-21] MEDS: ACETAMINOPHEN 325 MG TABLET 650 MG PO ×3 (04:18→21:56)
[2019-06-21 06:00] VITALS: BP 104/48; PULSE 55; RESP 20; TEMP 36; O2SAT 98
[2019-06-21] MEDS: AMPICILLIN SULB 3 GM/NS 100 ML 3 GM/100 ML VIAL IVPB ×3 (06:02→17:44)
[2019-06-21 06:03] LABS: Estimated CRCL calculation 86 ml/min; Estimated Glomerular Filt Rate > 60
[2019-06-21 06:38] LABS: Gentamicin Random < 0.6 ug/mL (5.0-12.0)
[2019-06-21] MEDS: ASPIRIN 325 MG ENTERIC TABLET PO (08:10)
[2019-06-21] MEDS: lisinopriL 20 MG TABLET 40 MG PO (08:10)
[2019-06-21] MEDS: MEMANTINE 5 MG TABLET PO ×2 (08:10→17:44)
[2019-06-21] MEDS: FINASTERIDE 5 MG TABLET PO (08:10)
[2019-06-21] MEDS: POLYSACCHARIDE IRON COMPLEX 150 MG CAPSULE PO ×2 (08:10→17:43)
[2019-06-21] MEDS: GABAPENTIN 300 MG CAPSULE PO ×3 (08:10→17:43)
[2019-06-21 08:11] VITALS: PULSE 68
[2019-06-21] MEDS: SIMETHICONE 125 MG CHEW TAB PO ×4 (08:11→20:24)
[2019-06-21] MEDS: METOPROLOL TARTRATE 25 MG TABLET PO ×2 (08:11→17:43)
[2019-06-21] MEDS: FUROSEMIDE 20 MG TABLET PO (08:11)
[2019-06-21] MEDS: ENOXAPARIN 40 MG/0.4 ML SYRINGE SUB-Q (08:13)
[2019-06-21] MEDS: SILVERGEL (ELTA) 45 ML 1 APPLIC TOPICAL (08:14)
[2019-06-21] MEDS: CHOLECALCIFEROL 1,000 UNIT TABLET 1000 UNITS PO (08:14)
[2019-06-21 08:15] VITALS: BP 145/61; PULSE 68
[2019-06-21 08:21] LABS: Glucose Point of Care 76 (65-105)
--- NOTE | 2019-06-21 09:24 | PM.DS ---
DS: Diagnosis Admitting Diagnosis Admitting Diagnosis: Syncope and collapse Discharge Diagnosis (1) Cellulitis and abscess of buttock: Code(s): L02.31 - Cutaneous abscess of buttock; L03.317 - Cellulitis of buttock Status: Acute Assessment and Plan: S/p debridement Blood cultures negative to date. Acinetobacter from wound culture Ampicillin/sulbactam day 5 (Gent day 3/3 on 06/19) Due to bed availability at [facility] nursing shortage for the weekend, discharge is planned for 06/21. (2) UTI due to extended-spectrum beta lactamase (ESBL) producing Escherichia coli: Code(s): N39.0 - Urinary tract infection, site not specified; B96.29 - Other Escherichia coli [E. coli] as the cause of diseases classified elsewhere; Z16.12 - Extended spectrum beta lactamase (ESBL) resistance Status: Chronic Assessment and Plan: The patient was being treated Primaxin for ESBL e. coli UTI No urinary symptoms today Now on Unasyn day 4 (3) Syncope and collapse: Code(s): R55 - Syncope and collapse Status: Acute Assessment and Plan: He did not lose consciousness and that he lost balance shifting in his chair and fell. Carotids negative today. CT unremarkable for bleed. Patient has had short runs of Vtach today on tele, however patient remains asymptomatic. Several pauses noted as well; otherwise sinus rhythm. Echo showed moderate aortic valve sclerosis without stenosis, diastolic dysfunction, and EF of 55-65% No further episodes (4) Chronic anemia: Code(s): D64.9 - Anemia, unspecified Status: Chronic Assessment and Plan: Stable, No signs of acute blood loss. Monitor H/H (5) Diabetes: Qualifiers: Diabetes mellitus complication detail: with other circulatory complications Diabetes mellitus complication status: with circulatory complication Diabetes mellitus assistance representative insulin use: with nursing home use Diabetes mellitus type: type 2 Qualified Code(s): E11.59 - Type 2 diabetes mellitus with other circulatory complications; Z79.4 - group home (current) use of insulin Code(s): E11.9 - Type 2 diabetes mellitus without complications Status: Chronic Assessment and Plan: BS below 150 Accuchecks, SSI Coverage, Hypoglycemic protocol 06/19 FBS 55, so reduced Lantus from 60 to 30 U 06/20 FBS low so reduced Lantus from 30 to 20 U 06/21 FBS 76 so reduced Lantus from 20 to 15 U (6) Hyperlipidemia: Qualifiers: Hyperlipidemia type: unspecified Qualified Code(s): E78.5 - Hyperlipidemia, unspecified Code(s): E78.5 - Hyperlipidemia, unspecified Status: Chronic Assessment and Plan: Continue atorvastatin PO. (7) Dementia: Qualifiers: Dementia behavioral disturbance: without behavioral disturbance Dementia type: unspecified type Qualified Code(s): F03.90 - Unspecified dementia without behavioral disturbance Code(s): F03.90 - Unspecified dementia without behavioral disturbance Status: Chronic Assessment and Plan: Continue Namenda (8) CAD (coronary artery disease): Qualifiers: Associated angina: without angina Coronary Disease-Associated Artery/Lesion type: unspecified vessel or lesion type [place] vs. transplanted heart: [place] heart Qualified Code(s): I25.10 - Atherosclerotic heart disease of [place] coronary artery without angina pectoris Code(s): I25.10 - Atherosclerotic heart disease of [place] coronary artery without angina pectoris Status: Chronic Assessment and Plan: No chest pain today. Continue ASA and beta cassius. Monitor for chest pain. (9) KARAN coffman
[2019-06-21 12:23] LABS: Glucose Point of Care 162 (65-105)
--- NOTE | 2019-06-21 13:11 | WPDINFPN2 ---
Progress Note: A&P Assessment and Plan (1) UTI due to extended-spectrum beta lactamase (ESBL) producing Escherichia coli: Code(s): N39.0 - Urinary tract infection, site not specified; B96.29 - Other Escherichia coli [E. 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 Recent UTI, resolved 2. Decub ulcer , POD #7, Acinetobacter isolated. The yeast is not a pathogen, and further identification is not needed REC Off Imipenem. Continue AmpSulbactam # 5 /7 days, and Gentamicin stopped. Ok to SNF, and ok pull IV after AmpSulbactam completed. Subjective Date/time seen: 06/21/19 13:11 Interval history: no new complaints Exam Narrative: Exam Narrative: afebrile GI: Inspection: non-distended GI Palp: Yes Soft to palpation and No Tenderness to palpation present (GI) Other: no urinary catheter Objective Data Vital Signs Vital Signs: Vital Signs - 24 hr 06/20/19 14:00 06/20/19 17:28 06/20/19 20:00 Temperature 36.6 C Pulse Rate 66 81 81 Respiratory Rate 18 18 Blood Pressure 133/47 L Pulse Oximetry 99 99 06/20/19 22:00 06/21/19 06:00 06/21/19 08:11 Temperature 36.1 C L 36.0 C L Pulse Rate 68 55 L 68 Respiratory Rate 21 H 20 Blood Pressure 128/43 L 104/48 L Pulse Oximetry 100 98 06/21/19 08:15 Temperature Pulse Rate 68 Respiratory Rate Blood Pressure 145/61 H Pulse Oximetry Intake/Output Intake/Output: Intake & Output 06/18/19 06/19/19 06/20/19 06/21/19 23:59 23:59 23:59 23:59 Intake Total 4840 6420 4440 1530 Output Total 2500 2750 3775 1000 Balance 2340 3670 669 530 Meds/Results Medications: Active Medications Generic Name Dose Route Start Last Admin Trade Name Freq PRN Reason Stop Dose Admin Acetaminophen 650 mg 06/15/19 20:18 06/21/19 04:18 Tylenol Tablet PO 650 mg Q4H PRN Administration Headache Hydrocodone Bitart/Acetaminophen 1 tab 06/14/19 13:57 06/19/19 23:17 [place] 5-325 Mg PO 1 tab Q4H PRN Administration Pain Rated 4-6 Hydrocodone Bitart/Acetaminophen 1 tab 06/14/19 13:57 06/16/19 16:59 [place] 10-325 Mg PO 1 tab Q4H PRN Administration Pain Rated 7-10 Albuterol 2.5 mg 06/13/19 05:00 Albuterol Sulf Neb 2.5mg/0.5ml INHALATION TID PRN SHORTNESS OF BREATH Amlodipine Besylate 5 mg 06/13/19 21:00 06/20/19 20:37 Norvasc PO 5 mg HS SHAN Administration Aspirin 325 mg 06/13/19 09:00 06/21/19 08:10 Aspirin Ec PO 325 mg DAILY SHAN Administration Atorvastatin Calcium 80 mg 06/13/19 21:00 06/20/19 20:37 Lipitor PO 80 mg HS SHAN Administration Dextrose 12.5 gm 06/13/19 02:16 Dextrose 50% Syringe IV PUSH PRN PRN Hypoglycemia Protocol Dicyclomine HCl 20 mg 06/13/19 13:01 Bentyl Capsule PO QID PRN Abdominal Cramping Enoxaparin Sodium 40 mg 06/13/19 09:00 06/21/19 08:13 Lovenox SUB-Q 40 mg DAILY SHAN Administration Finasteride 5 mg 06/13/19 09:00 06/21/19 08:10 Proscar PO 5 mg DAILY SHAN Administration Furosemide 20 mg 06/13/19 09:00 06/21/19 08:11 Lasix Tablet PO 20 mg DAILY SHAN Administration Gabapentin 300 mg 06/13/19 09:00 06/21/19 12:51 Neurontin PO 300 mg TID SHAN Administration Glucagon 1 mg 06/13/19 02:16 Glucagon For Inj IM PRN PRN Hypoglycemia Protocol Glucose 15 gm 06/13/19 02:16 06/20/19 05:31 Glutose 15 PO 15 gm PRN PRN Administration Hypoglycemia Protocol Dextrose 1,000 mls @ 100 mls/hr 06/13/19 02:16 Dextrose 5% 1,000 Ml IVPB PRN PRN Hypoglycemia Protocol Ampicillin Sodium/Sulbactam Sodium 3 gm in 100 mls @ 200 mls/hr 06/17/19 13:00 06/21/19 12:51 Unasyn 3 Gm/Ns 100 Ml IVPB 200 mls/hr Q6HR SHAN Administration Ibuprofen 400 mg 06/14/19 13:57 Motrin PO Q6H PRN Pain Rated 1-3 In
[2019-06-21 14:00] VITALS: BP 110/50; PULSE 60; RESP 16; TEMP 36.4; O2SAT 98
--- NOTE | 2019-06-21 14:16 | P.PNIM_ITS ---
Progress Note: A&P Assessment and Plan (1) Cellulitis and abscess of buttock: Code(s): L02.31 - Cutaneous abscess of buttock; L03.317 - Cellulitis of buttock Status: Acute Assessment and Plan: * S/p debridement * Blood cultures negative to date. * Acinetobacter from wound culture * Ampicillin/sulbactam day 5 (Gent day 3/3 on 06/19) * Due to bed availability at and [facility] nursing shortage for the weekend, rivera mcfarlane is planned for 06/21. * 06/21 [facility] cannot take q 6h IV antibx and [facility] has him on the waiting list (2) UTI due to extended-spectrum beta lactamase (ESBL) producing Escherichia coli: Code(s): N39.0 - Urinary tract infection, site not specified; B96.29 - Other Escherichia coli [E. coli] as the cause of diseases classified elsewhere; Z16.12 - Extended spectrum beta lactamase (ESBL) resistance Status: Chronic Assessment and Plan: * The patient was being treated Primaxin for ESBL e. coli UTI * No urinary symptoms today * Now on Unasyn day 5 (3) Syncope and collapse: Code(s): R55 - Syncope and collapse Status: Acute Assessment and Plan: He did not lose consciousness and that he lost balance shifting in his chair and fell. Carotids negative today. CT unremarkable for bleed. Patient has had short runs of Vtach today on tele, however patient remains asymptomatic. Several pauses noted as well; otherwise sinus rhythm. Echo showed moderate aortic valve sclerosis without stenosis, diastolic dysfunction, and EF of 55-65% * No further episodes (4) Chronic anemia: Code(s): D64.9 - Anemia, unspecified Status: Chronic Assessment and Plan: Stable, No signs of acute blood loss. * Monitor H/H 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 mellitus halfway insulin use: with marine oil terminal superintendent use Diabetes mellitus complication status: with circulatory complication Diabetes mellitus complication detail: with other circulatory complications Qualified Code(s): E11.59 - Type 2 diabetes mellitus with other circulatory complications; Z79.4 - long term (current) use of insulin Code(s): E11.9 - Type 2 diabetes mellitus without complications Status: Chronic Assessment and Plan: BS below 150 * Accuchecks, SSI Coverage, Hypoglycemic protocol * 06/19 FBS 55, so reduced Lantus from 60 to 30 U * 06/20 FBS low so reduced Lantus from 30 to 20 U * 06/21 FBS 76 so reduced Lantus from 20 to 15 U (6) Hyperlipidemia: Qualifiers: Hyperlipidemia type: unspecified Qualified Code(s): E78.5 - Hyperlipidemia, unspecified Code(s): E78.5 - Hyperlipidemia, unspecified Status: Chronic Assessment and Plan: Continue atorvastatin PO. (7) Dementia: Qualifiers: Dementia type: unspecified type Dementia behavioral disturbance: without behavioral disturbance Qualified Code(s): F03.90 - Unspecified dementia without behavioral disturbance Code(s): F03.90 - Unspecified dementia without behavioral disturbance Status: Chronic Assessment and Plan: Continue Namenda (8) CAD (coronary artery disease): Qualifiers: Coronary Disease-Associated Artery/Lesion type: unspecified vessel or lesion type [place] vs. transplanted heart: [place] heart Associated angina: without angina Qualifi
--- NOTE | 2019-06-21 14:16 | PM.IMPN ---
Progress Note: A&P Assessment and Plan (1) Cellulitis and abscess of buttock: Code(s): L02.31 - Cutaneous abscess of buttock; L03.317 - Cellulitis of buttock Status: Acute Assessment and Plan: S/p debridement Blood cultures negative to date. Acinetobacter from wound culture Ampicillin/sulbactam day 5 (Gent day 3/3 on 06/19) Due to bed availability at and [facility] nursing shortage for the weekend, discharge is planned for 06/21. 06/21 [facility] cannot take q 6h IV antibx and [facility] has him on the waiting list (2) UTI due to extended-spectrum beta lactamase (ESBL) producing Escherichia coli: Code(s): N39.0 - Urinary tract infection, site not specified; B96.29 - Other Escherichia coli [E. coli] as the cause of diseases classified elsewhere; Z16.12 - Extended spectrum beta lactamase (ESBL) resistance Status: Chronic Assessment and Plan: The patient was being treated Primaxin for ESBL e. coli UTI No urinary symptoms today Now on Unasyn day 5 (3) Syncope and collapse: Code(s): R55 - Syncope and collapse Status: Acute Assessment and Plan: He did not lose consciousness and that he lost balance shifting in his chair and fell. Carotids negative today. CT unremarkable for bleed. Patient has had short runs of Vtach today on tele, however patient remains asymptomatic. Several pauses noted as well; otherwise sinus rhythm. Echo showed moderate aortic valve sclerosis without stenosis, diastolic dysfunction, and EF of 55-65% No further episodes (4) Chronic anemia: Code(s): D64.9 - Anemia, unspecified Status: Chronic Assessment and Plan: Stable, No signs of acute blood loss. Monitor H/H 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 mellitus usp insulin use: with longwall shearer operator use Diabetes mellitus complication status: with circulatory complication Diabetes mellitus complication detail: with other circulatory complications Qualified Code(s): E11.59 - Type 2 diabetes mellitus with other circulatory complications; Z79.4 - terminal press operator (current) use of insulin Code(s): E11.9 - Type 2 diabetes mellitus without complications Status: Chronic Assessment and Plan: BS below 150 Accuchecks, SSI Coverage, Hypoglycemic protocol 06/19 FBS 55, so reduced Lantus from 60 to 30 U 06/20 FBS low so reduced Lantus from 30 to 20 U 06/21 FBS 76 so reduced Lantus from 20 to 15 U (6) Hyperlipidemia: Qualifiers: Hyperlipidemia type: unspecified Qualified Code(s): E78.5 - Hyperlipidemia, unspecified Code(s): E78.5 - Hyperlipidemia, unspecified Status: Chronic Assessment and Plan: Continue atorvastatin PO. (7) Dementia: Qualifiers: Dementia type: unspecified type Dementia behavioral disturbance: without behavioral disturbance Qualified Code(s): F03.90 - Unspecified dementia without behavioral disturbance Code(s): F03.90 - Unspecified dementia without behavioral disturbance Status: Chronic Assessment and Plan: Continue Namenda (8) CAD (coronary artery disease): Qualifiers: Coronary Disease-Associated Artery/Lesion type: unspecified vessel or lesion type [place] vs. transplanted heart: [place] heart Associated angina: without angina Qualified Code(s): I25.10 - Atherosclerotic heart disease of [place] coronary artery without angina pectoris Code(s): I25.10 - Atherosclerotic heart disease of [place] coronary artery without angina pectoris Status: Chronic Assessment and Plan: No chest pain today. Continue ASA and beta cassius. Monitor for chest pain.
[2019-06-21 16:31] LABS: Glucose Point of Care 140 (65-105)
--- NOTE | 2019-06-21 17:07 | PM.PNGS ---
Progress Note: A&P Assessment and Plan (1) Decubitus ulcer of left ischium, unstageable: Code(s): L89.320 - Pressure ulcer of left buttock, unstageable Status: Acute Assessment and Plan: Left ischial wound healing well. Continue local wound care with silver gel dressing changes daily. Minimize pressure to wound to help promote healing. Either use a waffle cushion or ROHO cushion if possible while sitting in wheelchair. Continue wound care with the assisted wound care nurses. Follow-up on an as needed basis after discharge. Will follow PRN at this point. (2) Cellulitis and abscess of buttock: Code(s): L02.31 - Cutaneous abscess of buttock; L03.317 - Cellulitis of buttock Status: Acute Assessment and Plan: See plan above. (3) UTI due to extended-spectrum beta lactamase (ESBL) producing Escherichia coli: Code(s): N39.0 - Urinary tract infection, site not specified; B96.29 - Other Escherichia coli [E. coli] as the cause of diseases classified elsewhere; Z16.12 - Extended spectrum beta lactamase (ESBL) resistance Status: Chronic Assessment and Plan: Management per Infectious Disease and hospitalist service. Additional Plan Discussed the patient's case and plan of care with Dr. Schmid. Subjective Subjective Date/Time Seen: 06/21/19 15:45 Post Op day: 7 Patient reports: no new complaints Interval history: Patient seen and examined. No new complaints today. Review of Systems Review of Systems: All systems reviewed & are unremarkable except as noted in HPI and below Exam Const: General: comfortable, no acute distress, alert and awake Skin: Other: Left ischial wound healing well with good granulation tissue forming. No necrotic tissue or purulent drainage. Surrounding skin appears healthy. Neuro: General: patient oriented x3 and no focal motor deficits Psych: Affect: normal affect Insight: Good insight present (Psych) Objective Data Vital Signs Vital Signs: Vital Signs - 24 hr 06/20/19 17:28 06/20/19 20:00 06/20/19 22:00 Temperature 36.1 C L Pulse Rate 81 81 68 Respiratory Rate 18 21 H Blood Pressure 128/43 L Pulse Oximetry 99 100 06/21/19 06:00 06/21/19 08:11 06/21/19 08:15 Temperature 36.0 C L Pulse Rate 55 L 68 68 Respiratory Rate 20 Blood Pressure 104/48 L 145/61 H Pulse Oximetry 98 06/21/19 14:00 Temperature 36.4 C Pulse Rate 60 Respiratory Rate 16 Blood Pressure 110/50 L Pulse Oximetry 98 Intake/Output Intake/Output: Intake & Output 06/18/19 06/19/19 06/20/19 06/21/19 23:59 23:59 23:59 23:59 Intake Total 4840 6420 4440 1890 Output Total 2500 2750 3775 1000 Balance 2340 3670 665 890 Meds/Results Medications: Active Medications Generic Name Dose Route Start Last Admin Trade Name Freq PRN Reason Stop Dose Admin Acetaminophen 650 mg 06/15/19 20:18 06/21/19 04:18 Tylenol Tablet PO 650 mg Q4H PRN Administration Headache Hydrocodone Bitart/Acetaminophen 1 tab 06/14/19 13:57 06/19/19 23:17 [place] 5-325 Mg PO 1 tab Q4H PRN Administration Pain Rated 4-6 Hydrocodone Bitart/Acetaminophen 1 tab 06/14/19 13:57 06/16/19 16:59 [place] 10-325 Mg PO 1 tab Q4H PRN Administration Pain Rated 7-10 Albuterol 2.5 mg 06/13/19 05:00 Albuterol Sulf Neb 2.5mg/0.5ml INHALATION TID PRN SHORTNESS OF BREATH Amlodipine Besylate 5 mg 06/13/19 21:00 06/20/19 20:37 Norvasc PO 5 mg HS SHAN Administration Aspirin 325 mg 06/13/19 09:00 06/21/19 08:10 Aspirin Ec PO 325 mg DAILY SHAN Administration Atorvastatin Calcium 80 mg 06/13/19 21:00 06/20/19 20:37 Lipitor PO 80 mg HS SHAN Administration Dextrose 12.5 gm 06/13/19 02:16 Dextrose 50% Syringe IV PUSH PRN PRN Hypoglycemia Protocol Dicyclomine HCl 20 mg 06/13/19 13:01 Bentyl Capsule PO QID PRN Abdominal Cramping Enoxaparin Sodium 40 mg 06/13/19 09:00 0
[2019-06-21 17:43] VITALS: PULSE 74
[2019-06-21] MEDS: ATORVASTATIN 40 MG TABLET 80 MG PO (20:24)
[2019-06-21] MEDS: AMLODIPINE BESYLATE 5 MG TABLET PO (20:24)
[2019-06-21] MEDS: INSULIN GLARGINE (*BKC) 100 UNITS/ML 15 UNITS SUB-Q (20:26)
[2019-06-21 20:44] LABS: Glucose Point of Care 165 (65-105)
[2019-06-21 22:00] VITALS: BP 136/40; PULSE 63; RESP 20; TEMP 36.3; O2SAT 99
[2019-06-22] MEDS: AMPICILLIN SULB 3 GM/NS 100 ML 3 GM/100 ML VIAL IVPB ×4 (00:05→17:17)
[2019-06-22 06:00] VITALS: BP 124/49; PULSE 53; RESP 18; TEMP 36.2; O2SAT 98
[2019-06-22 08:00] VITALS: PULSE 53; RESP 18; O2SAT 98
[2019-06-22] MEDS: lisinopriL 20 MG TABLET 40 MG PO (08:00)
[2019-06-22] MEDS: FUROSEMIDE 20 MG TABLET PO (08:01)
[2019-06-22] MEDS: POLYSACCHARIDE IRON COMPLEX 150 MG CAPSULE PO ×2 (08:01→17:21)
[2019-06-22] MEDS: SIMETHICONE 125 MG CHEW TAB PO ×4 (08:01→22:25)
[2019-06-22] MEDS: FINASTERIDE 5 MG TABLET PO (08:01)
[2019-06-22] MEDS: ASPIRIN 325 MG ENTERIC TABLET PO (08:01)
[2019-06-22] MEDS: GABAPENTIN 300 MG CAPSULE PO ×3 (08:01→17:21)
[2019-06-22] MEDS: MEMANTINE 5 MG TABLET PO ×2 (08:01→17:22)
[2019-06-22] MEDS: METOPROLOL TARTRATE 25 MG TABLET PO ×2 (08:01→17:21)
[2019-06-22] MEDS: CHOLECALCIFEROL 1,000 UNIT TABLET 1000 UNITS PO (08:01)
[2019-06-22] MEDS: SILVERGEL (ELTA) 45 ML 1 APPLIC TOPICAL (08:02)
[2019-06-22] MEDS: ENOXAPARIN 40 MG/0.4 ML SYRINGE SUB-Q (08:02)
[2019-06-22] MEDS: ACETAMINOPHEN 325 MG TABLET 650 MG PO ×2 (08:05→17:25)
[2019-06-22 08:30] LABS: Glucose Point of Care 82 (65-105)
[2019-06-22 12:38] LABS: Glucose Point of Care 170 (65-105)
--- NOTE | 2019-06-22 12:48 | PCDIET ---
Nutrition LOS Complete Pt current nutrition is [facility]. Nutrition recommendation: Agree Last recorded weight is 84 kg. Bowel Motility: 2-18 BM Labs Reviewed:Glucose 82 Meds Noted:Vit D, Niferex, Lasix, Metformin, Lopressor Additional Notes: Pt is eating well on a DBCC diet. PO intake is 90-100% of all meals. He was eating a deli sandwich when I visited him today. I encouraged protein intake for wound healing and pt agreeable to Moses BID due to left buttocks incision. Moses is a low kcal, low CHO beverage that aids in wound healing. It provides 80 kcals, 7.9 CHO, and 7 g of both L-Arginine and L-glutamine per serving. We will continue to monitor every five days.
--- NOTE | 2019-06-22 13:50 | P.PNIM_ITS ---
Progress Note: A&P Assessment and Plan (1) Cellulitis and abscess of buttock: Code(s): L02.31 - Cutaneous abscess of buttock; L03.317 - Cellulitis of buttock Status: Acute Assessment and Plan: * S/p debridement * Blood cultures negative to date. * Acinetobacter from wound culture * Ampicillin/sulbactam day 6/ (Gent day 3/3 on 06/19) * Due to bed availability at and [facility] nursing shortage for the weekend, discharge is delayed. * 06/21 [facility] cannot take q 6h IV antibx and [facility] has him on the waiting list * Will finish course of antibiotics 06/23 (2) UTI due to extended-spectrum beta lactamase (ESBL) producing Escherichia coli: Code(s): N39.0 - Urinary tract infection, site not specified; B96.29 - Other Escherichia coli [E. coli] as the cause of diseases classified elsewhere; Z16.12 - Extended spectrum beta lactamase (ESBL) resistance Status: Chronic Assessment and Plan: * The patient was being treated Primaxin for ESBL e. coli UTI * No urinary symptoms today * Now on Unasyn day 6 (3) Syncope and collapse: Code(s): R55 - Syncope and collapse Status: Acute Assessment and Plan: He did not lose consciousness and that he lost balance shifting in his chair and fell. Carotids negative today. CT unremarkable for bleed. Several pauses noted as well; otherwise sinus rhythm. Echo showed moderate aortic valve sclerosis without stenosis, diastolic dysfunction, and EF of 55-65% * No further episodes (4) Chronic anemia: Code(s): D64.9 - Anemia, unspecified Status: Chronic Assessment and Plan: Stable, No signs of acute blood loss. * Monitor H/H recheck in a.m. 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 insulin use: with prison use Diabetes mellitus complication status: with circulatory complication Diabetes mellitus complication detail: with other circulatory complications Qualified Code(s): E11.59 - Type 2 diabetes mellitus with other circulatory complications; Z79.4 - moth exterminator (current) use of insulin Code(s): E11.9 - Type 2 diabetes mellitus without complications Status: Chronic Assessment and Plan: BS below 150 * Accuchecks, SSI Coverage, Hypoglycemic protocol * 06/19 FBS 55, so reduced Lantus from 60 to 30 U * 06/20 FBS low so reduced Lantus from 30 to 20 U * 06/21 FBS 76 so reduced Lantus from 20 to 15 U * As above FBS today again 76 (6) Hyperlipidemia: Qualifiers: Hyperlipidemia type: unspecified Qualified Code(s): E78.5 - Hyperlipidemia, unspecified Code(s): E78.5 - Hyperlipidemia, unspecified Status: Chronic Assessment and Plan: Continue atorvastatin PO. (7) Dementia: Qualifiers: Dementia type: unspecified type Dementia behavioral disturbance: without behavioral disturbance Qualified Code(s): F03.90 - Unspecified dementia without behavioral disturbance Code(s): F03.90 - Unspecified dementia without behavioral disturbance Status: Chronic Assessment and Plan: Continue Namenda (8) CAD (coronary artery disease): Qualifiers: Coronary Disease-Associated Artery/Lesion type: unspecified vessel or lesion type [place] vs. transplanted heart: [place] heart Associated angina: without angina Qualifie
--- NOTE | 2019-06-22 13:50 | PM.IMPN ---
Progress Note: A&P Assessment and Plan (1) Cellulitis and abscess of buttock: Code(s): L02.31 - Cutaneous abscess of buttock; L03.317 - Cellulitis of buttock Status: Acute Assessment and Plan: S/p debridement Blood cultures negative to date. Acinetobacter from wound culture Ampicillin/sulbactam day 10/02 (Gent day 3/3 on 06/19) Due to bed availability at and [facility] nursing shortage for the weekend, discharge is delayed. 06/21 [facility] cannot take q 6h IV antibx and [facility] has him on the waiting list Will finish course of antibiotics 06/23 (2) UTI due to extended-spectrum beta lactamase (ESBL) producing Escherichia coli: Code(s): N39.0 - Urinary tract infection, site not specified; B96.29 - Other Escherichia coli [E. coli] as the cause of diseases classified elsewhere; Z16.12 - Extended spectrum beta lactamase (ESBL) resistance Status: Chronic Assessment and Plan: The patient was being treated Primaxin for ESBL e. coli UTI No urinary symptoms today Now on Unasyn day 6 (3) Syncope and collapse: Code(s): R55 - Syncope and collapse Status: Acute Assessment and Plan: He did not lose consciousness and that he lost balance shifting in his chair and fell. Carotids negative today. CT unremarkable for bleed. Several pauses noted as well; otherwise sinus rhythm. Echo showed moderate aortic valve sclerosis without stenosis, diastolic dysfunction, and EF of 55-65% No further episodes (4) Chronic anemia: Code(s): D64.9 - Anemia, unspecified Status: Chronic Assessment and Plan: Stable, No signs of acute blood loss. Monitor H/H recheck in a.m. 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 insulin use: with care home use Diabetes mellitus complication status: with circulatory complication Diabetes mellitus complication detail: with other circulatory complications Qualified Code(s): E11.59 - Type 2 diabetes mellitus with other circulatory complications; Z79.4 - termite inspector (current) use of insulin Code(s): E11.9 - Type 2 diabetes mellitus without complications Status: Chronic Assessment and Plan: BS below 150 Accuchecks, SSI Coverage, Hypoglycemic protocol 06/19 FBS 55, so reduced Lantus from 60 to 30 U 06/20 FBS low so reduced Lantus from 30 to 20 U 06/21 FBS 76 so reduced Lantus from 20 to 15 U As above FBS today again 76 (6) Hyperlipidemia: Qualifiers: Hyperlipidemia type: unspecified Qualified Code(s): E78.5 - Hyperlipidemia, unspecified Code(s): E78.5 - Hyperlipidemia, unspecified Status: Chronic Assessment and Plan: Continue atorvastatin PO. (7) Dementia: Qualifiers: Dementia type: unspecified type Dementia behavioral disturbance: without behavioral disturbance Qualified Code(s): F03.90 - Unspecified dementia without behavioral disturbance Code(s): F03.90 - Unspecified dementia without behavioral disturbance Status: Chronic Assessment and Plan: Continue Namenda (8) CAD (coronary artery disease): Qualifiers: Coronary Disease-Associated Artery/Lesion type: unspecified vessel or lesion type [place] vs. transplanted heart: [place] heart Associated angina: without angina Qualified Code(s): I25.10 - Atherosclerotic heart disease of [place] coronary artery without angina pectoris Code(s): I25.10 - Atherosclerotic heart disease of [place] coronary artery without angina pectoris Status: Chronic Assessment and Plan: No chest pain today. Continue ASA and beta cassius. Monitor for chest pain.
[2019-06-22 13:58] VITALS: BP 129/53; PULSE 69; RESP 24; TEMP 36.7; O2SAT 99
[2019-06-22 15:46] LABS: Glucose Point of Care 141 (65-105)
--- NOTE | 2019-06-22 16:14 | PC.NURSE ---
On 06/22/19, the student, Bill Amos, provided care and completed LOC&ALL documentation on this patient. I have reviewed the student's documentation and agree with the findings.
[2019-06-22 19:55] LABS: Glucose Point of Care 190 (65-105)
[2019-06-22 22:00] VITALS: BP 117/49; PULSE 64; RESP 20; TEMP 36.3; O2SAT 100
[2019-06-22] MEDS: ATORVASTATIN 40 MG TABLET 80 MG PO (22:25)
[2019-06-22] MEDS: AMLODIPINE BESYLATE 5 MG TABLET PO (22:25)
[2019-06-22] MEDS: INSULIN GLARGINE (*BKC) 100 UNITS/ML 15 UNITS SUB-Q (22:25)
[2019-06-23] MEDS: AMPICILLIN SULB 3 GM/NS 100 ML 3 GM/100 ML VIAL IVPB ×5 (00:43→23:45)
[2019-06-23 05:16] LABS: Basophils Percent Auto 0.5 % (0.2-1.2); Eosinophils Absolute Auto 0.1 K/mm3 (0-0.3); Eosinophils Percent Auto 1.4 % (0-4.4); Hematocrit 31.4 % (42.0-52.0); Hemoglobin 9.9 g/dL (14.0-18.0); Immature Granulocyte Absolute 0.02 K/mm3 (0.00-0.031); Immature Granulocyte Percent A 0.2 % (0-0.5); Lymphocytes Absolute Auto 2.69 K/mm3 (0.9-3.2); Lymphocytes Percent Auto 31.2 % (18.3-44.2); Mean Corpuscular HGB Conc 31.5 g/dl (32-36); Mean Corpuscular Hemoglobin 26.8 pg (26-34); Mean Corpuscular Volume 84.9 fl (80-100); Mean Platelet Volume 10.1 fl (7.4-10.4); Monocytes Absolute Auto 0.6 K/mm3 (0.1-0.6); Monocytes Percent Auto 6.7 % (2.6-8.5); Neutrophils Absolute Auto 5.2 K/mm3 (1.3-6.7); Platelet Count Result 278 k/mm3 (150-375); Red Cell Distribution Width 16.4 % (11.5-14.5); White Blood Count 8.6 K/mm3 (4.5-10.0)
[2019-06-23 05:32] LABS: Blood Urea Nitrogen 11 mg/dL (9-20); Calcium 8.1 mg/dL (8.4-10.2); Carbon Dioxide 28 mmol/L (22-30); Chloride 100 mmol/L (98-107); Estimated CRCL calculation 75 ml/min; Estimated Glomerular Filt Rate > 60; Glucose 105 mg/dL (75-110); Potassium 3.6 mmol/L (3.4-5.0); Sodium 139 mmol/L (137-145)
[2019-06-23 05:56] VITALS: BP 100/49; PULSE 56; RESP 20; TEMP 36.1; O2SAT 95
[2019-06-23] MEDS: GABAPENTIN 300 MG CAPSULE PO ×3 (07:59→18:04)
[2019-06-23] MEDS: METOPROLOL TARTRATE 25 MG TABLET PO ×2 (07:59→18:04)
[2019-06-23] MEDS: ASPIRIN 325 MG ENTERIC TABLET PO (07:59)
[2019-06-23] MEDS: SIMETHICONE 125 MG CHEW TAB PO ×4 (07:59→20:51)
[2019-06-23 08:00] VITALS: PULSE 56; RESP 20; O2SAT 95
[2019-06-23] MEDS: FINASTERIDE 5 MG TABLET PO (08:00)
[2019-06-23] MEDS: IBUPROFEN 400 MG TABLET PO (08:00)
[2019-06-23] MEDS: POLYSACCHARIDE IRON COMPLEX 150 MG CAPSULE PO ×2 (08:01→18:05)
[2019-06-23] MEDS: FUROSEMIDE 20 MG TABLET PO (08:01)
[2019-06-23] MEDS: MEMANTINE 5 MG TABLET PO ×2 (08:01→18:04)
[2019-06-23] MEDS: lisinopriL 20 MG TABLET 40 MG PO (08:01)
[2019-06-23] MEDS: CHOLECALCIFEROL 1,000 UNIT TABLET 1000 UNITS PO (08:01)
[2019-06-23] MEDS: ENOXAPARIN 40 MG/0.4 ML SYRINGE SUB-Q (08:02)
[2019-06-23] MEDS: SILVERGEL (ELTA) 45 ML 1 APPLIC TOPICAL (08:02)
[2019-06-23 08:13] LABS: Glucose Point of Care 103 (65-105)
--- NOTE | 2019-06-23 11:48 | P.PNIM_ITS ---
Progress Note: A&P Assessment and Plan (1) Cellulitis and abscess of buttock: Code(s): L02.31 - Cutaneous abscess of buttock; L03.317 - Cellulitis of buttock Status: Acute Assessment and Plan: * S/p debridement * Blood cultures negative to date. * Acinetobacter from wound culture * Ampicillin/sulbactam day 7 (Gent day 3/3 on 06/19). * 06/21 [facility] cannot take q 6h IV antibx and [facility] has him on the waiting list * Will finish course of antibiotics 06/23 and plan on d/c 06/24 (2) UTI due to extended-spectrum beta lactamase (ESBL) producing Escherichia coli: Code(s): N39.0 - Urinary tract infection, site not specified; B96.29 - Other Escherichia coli [E. coli] as the cause of diseases classified elsewhere; Z16.12 - Extended spectrum beta lactamase (ESBL) resistance Status: Chronic Assessment and Plan: * The patient was being treated Primaxin for ESBL e. coli UTI * No urinary symptoms today * Now on Unasyn day 7 (3) Syncope and collapse: Code(s): R55 - Syncope and collapse Status: Acute Assessment and Plan: He did not lose consciousness and that he lost balance shifting in his chair and fell. Carotids negative today. CT unremarkable for bleed. Several pauses noted as well; otherwise sinus rhythm. Echo showed moderate aortic valve sclerosis without stenosis, diastolic dysfunction, and EF of 55-65% * No further episodes (4) Chronic anemia: Code(s): D64.9 - Anemia, unspecified Status: Chronic Assessment and Plan: Stable, No signs of acute blood loss. * Monitor H/H recheck in a.m. 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 mellitus superintendent container terminal insulin use: with halfway use Diabetes mellitus complication status: with circulatory complication Diabetes mellitus complication detail: with other circulatory complications Qualified Code(s): E11.59 - Type 2 diabetes mellitus with other circulatory complications; Z79.4 - penitentiary (current) use of insulin Code(s): E11.9 - Type 2 diabetes mellitus without complications Status: Chronic Assessment and Plan: BS below 150 * Accuchecks, SSI Coverage, Hypoglycemic protocol * 06/19 FBS 55, so reduced Lantus from 60 to 30 U * 06/20 FBS low so reduced Lantus from 30 to 20 U * 06/21 FBS 76 so reduced Lantus from 20 to 15 U * As above FBS today again 105 (6) Hyperlipidemia: Qualifiers: Hyperlipidemia type: unspecified Qualified Code(s): E78.5 - Hyperlipidemia, unspecified Code(s): E78.5 - Hyperlipidemia, unspecified Status: Chronic Assessment and Plan: Continue atorvastatin PO. (7) Dementia: Qualifiers: Dementia type: unspecified type Dementia behavioral disturbance: without behavioral disturbance Qualified Code(s): F03.90 - Unspecified dementia without behavioral disturbance Code(s): F03.90 - Unspecified dementia without behavioral disturbance Status: Chronic Assessment and Plan: Continue Namenda (8) CAD (coronary artery disease): Qualifiers: Coronary Disease-Associated Artery/Lesion type: unspecified vessel or lesion type [place] vs. transplanted heart: [place] heart Associated angina: without angina Qualified Code(s): I25.10 - Atherosclerotic heart disease of [place] coronary artery without
--- NOTE | 2019-06-23 11:48 | PM.IMPN ---
Progress Note: A&P Assessment and Plan (1) Cellulitis and abscess of buttock: Code(s): L02.31 - Cutaneous abscess of buttock; L03.317 - Cellulitis of buttock Status: Acute Assessment and Plan: S/p debridement Blood cultures negative to date. Acinetobacter from wound culture Ampicillin/sulbactam day 11/01 (Gent day 3/3 on 06/19). 06/21 [facility] cannot take q 6h IV antibx and [facility] has him on the waiting list Will finish course of antibiotics 06/23 and plan on d/c 06/24 (2) UTI due to extended-spectrum beta lactamase (ESBL) producing Escherichia coli: Code(s): N39.0 - Urinary tract infection, site not specified; B96.29 - Other Escherichia coli [E. coli] as the cause of diseases classified elsewhere; Z16.12 - Extended spectrum beta lactamase (ESBL) resistance Status: Chronic Assessment and Plan: The patient was being treated Primaxin for ESBL e. coli UTI No urinary symptoms today Now on Unasyn day 7 (3) Syncope and collapse: Code(s): R55 - Syncope and collapse Status: Acute Assessment and Plan: He did not lose consciousness and that he lost balance shifting in his chair and fell. Carotids negative today. CT unremarkable for bleed. Several pauses noted as well; otherwise sinus rhythm. Echo showed moderate aortic valve sclerosis without stenosis, diastolic dysfunction, and EF of 55-65% No further episodes (4) Chronic anemia: Code(s): D64.9 - Anemia, unspecified Status: Chronic Assessment and Plan: Stable, No signs of acute blood loss. Monitor H/H recheck in a.m. 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 mellitus correction insulin use: with correction use Diabetes mellitus complication status: with circulatory complication Diabetes mellitus complication detail: with other circulatory complications Qualified Code(s): E11.59 - Type 2 diabetes mellitus with other circulatory complications; Z79.4 - termite inspector (current) use of insulin Code(s): E11.9 - Type 2 diabetes mellitus without complications Status: Chronic Assessment and Plan: BS below 150 Accuchecks, SSI Coverage, Hypoglycemic protocol 06/19 FBS 55, so reduced Lantus from 60 to 30 U 06/20 FBS low so reduced Lantus from 30 to 20 U 06/21 FBS 76 so reduced Lantus from 20 to 15 U As above FBS today again 105 (6) Hyperlipidemia: Qualifiers: Hyperlipidemia type: unspecified Qualified Code(s): E78.5 - Hyperlipidemia, unspecified Code(s): E78.5 - Hyperlipidemia, unspecified Status: Chronic Assessment and Plan: Continue atorvastatin PO. (7) Dementia: Qualifiers: Dementia type: unspecified type Dementia behavioral disturbance: without behavioral disturbance Qualified Code(s): F03.90 - Unspecified dementia without behavioral disturbance Code(s): F03.90 - Unspecified dementia without behavioral disturbance Status: Chronic Assessment and Plan: Continue Namenda (8) CAD (coronary artery disease): Qualifiers: Coronary Disease-Associated Artery/Lesion type: unspecified vessel or lesion type [place] vs. transplanted heart: [place] heart Associated angina: without angina Qualified Code(s): I25.10 - Atherosclerotic heart disease of [place] coronary artery without angina pectoris Code(s): I25.10 - Atherosclerotic heart disease of [place] coronary artery without angina pectoris Status: Chronic Assessment and Plan: No chest pain today. Continue ASA and beta cassius. (9) BPH (benign prostatic hyperplasia): Qualifiers: Lower urinary tract symptom pre
[2019-06-23 12:02] LABS: Glucose Point of Care 143 (65-105)
[2019-06-23 14:00] VITALS: BP 121/47; PULSE 65; RESP 18; TEMP 36.5; O2SAT 99
[2019-06-23 16:18] LABS: Glucose Point of Care 156 (65-105)
[2019-06-23] MEDS: ATORVASTATIN 40 MG TABLET 80 MG PO (20:51)
[2019-06-23] MEDS: AMLODIPINE BESYLATE 5 MG TABLET PO (20:51)
[2019-06-23 21:04] LABS: Glucose Point of Care 202 (65-105)
[2019-06-23] MEDS: INSULIN GLARGINE (*BKC) 100 UNITS/ML 15 UNITS SUB-Q (21:14)
[2019-06-23 22:00] VITALS: BP 135/48; PULSE 66; RESP 20; TEMP 36.3; O2SAT 98
[2019-06-24] MEDS: AMPICILLIN SULB 3 GM/NS 100 ML 3 GM/100 ML VIAL IVPB ×2 (05:30→12:08)
[2019-06-24 05:50] VITALS: BP 106/48; PULSE 100; RESP 20; TEMP 36.1; O2SAT 95
[2019-06-24 06:12] LABS: Estimated CRCL calculation 75 ml/min; Estimated Glomerular Filt Rate > 60
[2019-06-24 08:20] VITALS: BP 141/59; PULSE 69
[2019-06-24] MEDS: ENOXAPARIN 40 MG/0.4 ML SYRINGE SUB-Q (08:20)
[2019-06-24] MEDS: FINASTERIDE 5 MG TABLET PO (08:21)
[2019-06-24] MEDS: MEMANTINE 5 MG TABLET PO (08:21)
[2019-06-24] MEDS: ASPIRIN 325 MG ENTERIC TABLET PO (08:21)
[2019-06-24] MEDS: FUROSEMIDE 20 MG TABLET PO (08:21)
[2019-06-24] MEDS: SIMETHICONE 125 MG CHEW TAB PO ×2 (08:21→12:14)
[2019-06-24] MEDS: POLYSACCHARIDE IRON COMPLEX 150 MG CAPSULE PO (08:21)
[2019-06-24 08:22] VITALS: PULSE 69
[2019-06-24] MEDS: lisinopriL 20 MG TABLET 40 MG PO (08:22)
[2019-06-24] MEDS: METOPROLOL TARTRATE 25 MG TABLET PO (08:22)
[2019-06-24] MEDS: CHOLECALCIFEROL 1,000 UNIT TABLET 1000 UNITS PO (08:22)
[2019-06-24] MEDS: GABAPENTIN 300 MG CAPSULE PO ×2 (08:22→12:14)
[2019-06-24 09:09] LABS: Glucose Point of Care 102 (65-105)
[2019-06-24] MEDS: SILVERGEL (ELTA) 45 ML 1 APPLIC TOPICAL (12:16)
[2019-06-24 13:50] LABS: Glucose Point of Care 125 (65-105)
[2019-06-24 14:00] VITALS: BP 101/58; PULSE 63; RESP 16; TEMP 36.5; O2SAT 98
--- NOTE | 2019-06-24 16:32 | PC.NURSE ---
Report called to ERICKA Snowden at [facility]. All questions and concerns were answered.
--- NOTE | 2019-06-24 16:50 | PC.NURSE ---
On 06/24/19, the License pending nurse, Claudio Nobles RN provided care and completed [employer] documentation on this patient. I have reviewed the documentation and agree with the findings.
--- NOTE | 2019-06-24 18:05 | PM.DS ---
DS: Diagnosis Admitting Diagnosis Admitting Diagnosis: Syncope and collapse Discharge Diagnosis (1) Cellulitis and abscess of buttock: Code(s): L02.31 - Cutaneous abscess of buttock; L03.317 - Cellulitis of buttock Status: Acute Assessment and Plan: S/p debridement Blood cultures were negative. Acinetobacter from wound culture Completed ampicillin/sulbactam day 11/01 (Gent day 3/3 on 06/19). As per ID recommendation (2) UTI due to extended-spectrum beta lactamase (ESBL) producing Escherichia coli: Code(s): N39.0 - Urinary tract infection, site not specified; B96.29 - Other Escherichia coli [E. coli] as the cause of diseases classified elsewhere; Z16.12 - Extended spectrum beta lactamase (ESBL) resistance Status: Chronic Assessment and Plan: The patient was being treated Primaxin for ESBL e. coli UTI No urinary symptoms today Finish course of treatment (3) Syncope and collapse: Code(s): R55 - Syncope and collapse Status: Acute Assessment and Plan: He did not lose consciousness and that he lost balance shifting in his chair and fell. Carotids negative today. CT unremarkable for bleed. Several pauses noted as well; otherwise sinus rhythm. Echo showed moderate aortic valve sclerosis without stenosis, diastolic dysfunction, and EF of 55-65% No further episodes (4) Chronic anemia: Code(s): D64.9 - Anemia, unspecified Status: Chronic Assessment and Plan: Stable, No signs of acute blood loss. Hemoglobin remains steady at 10 (5) Diabetes: Qualifiers: Diabetes mellitus complication detail: with other circulatory complications Diabetes mellitus complication status: with circulatory complication Diabetes mellitus operations inspector insulin use: with operations inspector use Diabetes mellitus type: type 2 Qualified Code(s): E11.59 - Type 2 diabetes mellitus with other circulatory complications; Z79.4 - skilled nursing (current) use of insulin Code(s): E11.9 - Type 2 diabetes mellitus without complications Status: Chronic Assessment and Plan: BS below 150 Accuchecks, SSI Coverage, Hypoglycemic protocol 06/19 FBS 55, so reduced Lantus from 60 to 30 U 06/20 FBS low so reduced Lantus from 30 to 20 U 06/21 FBS 76 so reduced Lantus from 20 to 15 U As above FBS today again 102, date of discharge (6) Hyperlipidemia: Qualifiers: Hyperlipidemia type: unspecified Qualified Code(s): E78.5 - Hyperlipidemia, unspecified Code(s): E78.5 - Hyperlipidemia, unspecified Status: Chronic Assessment and Plan: Continue atorvastatin PO. (7) Dementia: Qualifiers: Dementia behavioral disturbance: without behavioral disturbance Dementia type: unspecified type Qualified Code(s): F03.90 - Unspecified dementia without behavioral disturbance Code(s): F03.90 - Unspecified dementia without behavioral disturbance Status: Chronic Assessment and Plan: Continue Namenda (8) CAD (coronary artery disease): Qualifiers: Associated angina: without angina Coronary Disease-Associated Artery/Lesion type: unspecified vessel or lesion type [place] vs. transplanted heart: [place] heart Qualified Code(s): I25.10 - Atherosclerotic heart disease of [place] coronary artery without angina pectoris Code(s): I25.10 - Atherosclerotic heart disease of [place] coronary artery without angina pectoris Status: Chronic Assessment and Plan: No chest pain today. Continue ASA and beta cassius. (9) BPH (benign prostatic hyperplasia): Qualifiers: Lower urinary tract symptom presence: unspecified
== END 2019-06-24 16:50 | DRG 580 ==
LOC: ANHED 21:56 → ANH2MED 06-13 00:47
PROVIDERS: Family Medicine; Internal Medicine; Internal Medicine Infectious Disease; Physician Assistant; Surgery; Admitting Provider Family Medicine; Emergency Provider Emergency Medicine; PCP Family Medicine; Visit Provider Family Medicine
PROC: 0KBP0ZZ Excision of Left Hip Muscle, Open Approach (ICD-10-PCS; principal; 2019-06-14 12:00)
DX: L02.31 Cutaneous abscess of buttock (principal); N39.0 Urinary tract infection, site not specified; Z16.12 Extended spectrum beta lactamase (ESBL) resistance; I47.2 Ventricular tachycardia; L03.317 Cellulitis of buttock; B96.20 Unspecified Escherichia coli [E. coli] as the cause of diseases classified elsewhere; R55 Syncope and collapse; D64.9 Anemia, unspecified; E78.5 Hyperlipidemia, unspecified; F03.90 Unspecified dementia, unspecified severity, without behavioral disturbance, psychotic disturbance, mood disturbance, and anxiety; I25.10 Atherosclerotic heart disease of native coronary artery without angina pectoris; N40.0 Benign prostatic hyperplasia without lower urinary tract symptoms; E11.51 Type 2 diabetes mellitus with diabetic peripheral angiopathy without gangrene; I73.9 Peripheral vascular disease, unspecified; M19.90 Unspecified osteoarthritis, unspecified site; D72.829 Elevated white blood cell count, unspecified; E03.9 Hypothyroidism, unspecified; I10 Essential (primary) hypertension; I65.29 Occlusion and stenosis of unspecified carotid artery; L89.320 Pressure ulcer of left buttock, unstageable; L89.310 Pressure ulcer of right buttock, unstageable; F17.210 Nicotine dependence, cigarettes, uncomplicated; Z89.512 Acquired absence of left leg below knee; Z89.511 Acquired absence of right leg below knee; Z95.5 Presence of coronary angioplasty implant and graft; E66.9 Obesity, unspecified; Z68.36 Body mass index [BMI] 36.0-36.9, adult
CPT/HCPCS: 36415; 51701; 70450; 80048; 80076; 80170; 80202; 81001; 82565; 83605; 83690; 83735; 85025; 85027; 87040; 87070; 87075; 87077; 87081; 87186; 87205; 93306; 93880; A9270; J0295; J0330; J0743; J1100; J1335; J1580; J1650; J1815; J2405; J2704; J3010; J3370; J7030; J7120

== ENCOUNTER 2019-07-01 08:38 | Inpatient (IN) | payer MEDICARE, OTHER, MEDICAID, SELFPAY ==
[2019-07-01] VITALS (15 sets, daily range): BP systolic 90–136; BP diastolic 40–56; PULSE 57–82; RESP 14–20; TEMP 36–36.8; O2SAT 97–100; BMI 24.7
--- NOTE | ~2019-07-01 | XR_ITS ---
EXAMINATION: XR abdomen/kub 1V DATE: 07/01/2019 14:01 INDICATION: Constipated TECHNIQUE: A supine view of the abdomen on 2 radiographs was obtained. COMPARISON: CT abdomen and pelvis dated 04/30/2019 FINDINGS: Small to moderate amount of stool scattered throughout the colon predominantly in the transverse and sigmoid colon. Small amount of gas scattered throughout the nondilated loops of small bowel. Scattere d atherosclerotic calcifications. Multiple small hepatic and splenic calcifications consistent with o ld granulomatous disease. Mild lumbar levocurvature with severe spondylosis. Partially visualized dyn amic compression screw at the left femoral head neck. IMPRESSION: 1. Nonobstructive bowel gas pattern with small to moderate amount of colonic stool. Reviewed, dictated and finalized at location A. REPAIRER IMPRESSION: 1. Nonobstructive bowel gas pattern with small to moderate amount of colonic st ool.
--- NOTE | ~2019-07-01 | XR_ITS ---
XR chest 2V DATE: 07/01/2019 10:06 INDICATION: Chest pain. Burning sensation. TECHNIQUE: AP and lateral views with gonadal shielding COMPARISON: 06/05/2019 AP and lateral chest FINDINGS: No pulmonary infiltrate or consolidation, pleural effusion or pulmonary vascular congestion or pneumothorax. Heart size appears within normal range considering magnification associated with AP projection. Otic arch calcification. Diffuse idiopathic skeletal hyperostosis of the thoracic spine. Osteopenia. IMPRESSION: No active cardiopulmonary disease or significant change since 06/05/2019 Reviewed, dictated and finalized at location B. CY ADVISER IMPRESSION: No active cardiopulmonary disease or significant change since 020
--- NOTE | 2019-07-01 09:25 | ED.CHESTPAIN ---
HPI - Chest Pain General Chief Complaint: Chest Pain Stated Complaint: CP Time Seen by Provider: 07/01/19 09:01 Source: patient Mode of arrival: EMS Limitations: no limitations History of Present Illness HPI narrative: Pt is a 73 y/o male who presents to the ED, via EMS, from [facility], with c/o lt sided CP that started at 0830 this morning and lasted for 30 minutes. Pt states that his CP is better in the ED bed. He has a H/O cardiac stents x4. Pt notes that his pain felt similar to when he had to get stents in the past. Pt denies SOB, nausea, vomiting, or sweats. MD complaint: chest pain Pertinent past history: coronary artery disease Onset (ago): minute(s) (30) Timing of current episode: now resolved Prior episodes: Yes Onset: during rest Pain location: left chest Quality: burning Associated symptoms: other (none) Related Data Home Medications Medication Instructions Recorded Confirmed Poly-Iron 150 Forte 1 cap PO BID 06/05/19 06/13/19 amlodipine 5 mg PO HS 06/05/19 06/13/19 aspirin 325 mg PO DAILY 06/05/19 06/13/19 atorvastatin 80 mg PO HS 06/05/19 06/13/19 cholecalciferol (vitamin D3) 1,000 unit PO DAILY 06/05/19 06/13/19 finasteride 5 mg PO DAILY 06/05/19 06/13/19 furosemide 20 mg PO DAILY 06/05/19 06/13/19 gabapentin 300 mg PO TID 06/05/19 06/13/19 ipratropium-albuterol 3 ml INHALATION TID PRN 06/05/19 06/13/19 lisinopril 40 mg PO DAILY 06/05/19 06/13/19 memantine [Namenda] 5 mg PO BID 06/05/19 06/13/19 metformin 1,000 mg PO DAILY 06/05/19 06/13/19 metoprolol tartrate 25 mg PO BID 06/05/19 06/13/19 ondansetron 4 mg PO Q6H PRN 06/05/19 06/13/19 simethicone 125 mg PO QID 06/05/19 06/13/19 insulin aspart U-100 [Novolog unit SUBCUT 07/01/19 Flexpen U-100 Insulin] metoclopramide HCl [Reglan] 07/01/19 polyethylene glycol 3350 07/01/19 senna mg 07/01/19 Allergies Allergy/AdvReac Type Severity Reaction Status Date / Time shrimp Allergy Mild Unknown Verified 07/01/19 11:23 sulfamethoxazole Allergy Unknown Verified 07/01/19 11:23 [From Bactrim] trimethoprim [From Bactrim] Allergy Unknown Verified 07/01/19 11:23 Review of Systems Review of Systems: All systems reviewed & are unremarkable except as noted in HPI and below Constitutional: Constitutional: Denies other (sweats) Cardiovascular: Cardiovascular: Reports chest pain Respiratory: Respiratory: Denies dyspnea Gastrointestinal: Gastrointestinal: Denies nausea and Denies vomiting PMFSH Past Medical History Medical History 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 Anemia BPH (benign prostatic hyperplasia) CAD (coronary artery disease) Carotid stenosis CHF (congestive heart failure) Dementia Depression Diabetes Hip fracture requiring operative repair Hyperlipidemia Hypertension Hypothyroidism MRSA (methicillin resistant staph aureus) culture positive Osteoarthritis PAD (peripheral artery disease) UTI (urinary tract infection) Surgical History Surgical History H/O cardiac catheterization History of below-knee amputation of both lower extremities History of coronary artery stent placement Social History Social History Smoking status: Current every day smoker Tobacco type: cigars Alcohol intake: former Substance use: unknown Substance use type: does not use Gender identity (if verbalized by the patient): Male Spiritual care concerns: No Agree to blood products: Yes Exam Const: General: cooperative, no acute distress and alert Nutritional Appearance: well nourished Orientation/consciousness: patient oriented x3 Limitations: no limitations HENMT: Mouth: Yes lip normal and Yes moist mucous membranes Resp: Effort & Inspection: normal respiratory effort Auscultation: clear to auscultation bilaterally C
--- NOTE | 2019-07-01 09:30 | ECG_ITS ---
Measurements Intervals [place] Rate: 82 P: 12 VA: 139 QRS: -69 QRSD: 136 T: 56 QT: 371 QTc: 434 Interpretive Statements SINUS RHYTHM FREQUENT ATRIAL PREMATURE COMPLEXES RIGHT BUNDLE BRANCH BLOCK LEFT ANTERIOR FASCICULAR BLOCK BASELINE ARTIFACT- I, II, AVR ABNORMAL ECG Electronically Signed On 07-01-2019 9:46:57 CHRONIC MANAGER by Petar Kinsey D.O.
[2019-07-01 09:54] LABS: Basophils Absolute Auto 0.1 K/mm3 (0.0-0.1); Basophils Percent Auto 0.4 % (0.2-1.2); Eosinophils Absolute Auto 0.2 K/mm3 (0-0.3); Eosinophils Percent Auto 1.5 % (0-4.4); Hematocrit 37.1 % (42.0-52.0); Hemoglobin 11.7 g/dL (14.0-18.0); Immature Granulocyte Absolute 0.03 K/mm3 (0.00-0.031); Immature Granulocyte Percent A 0.2 % (0-0.5); Lymphocytes Absolute Auto 1.42 K/mm3 (0.9-3.2); Lymphocytes Percent Auto 10.9 % (18.3-44.2); Mean Corpuscular HGB Conc 31.5 g/dl (32-36); Mean Corpuscular Hemoglobin 27.3 pg (26-34); Mean Corpuscular Volume 86.7 fl (80-100); Mean Platelet Volume 10.4 fl (7.4-10.4); Monocytes Absolute Auto 0.9 K/mm3 (0.1-0.6); Monocytes Percent Auto 6.7 % (2.6-8.5); Neutrophils Absolute Auto 10.4 K/mm3 (1.3-6.7); Neutrophils Percent Auto 80.3 % (45.5-73.1); Platelet Count Result 247 k/mm3 (150-375); Red Blood Count 4.28 M/mm3 (4.6-6.20); Red Cell Distribution Width 16.5 % (11.5-14.5)
[2019-07-01 10:04] LABS: Prothrombin Time 13.1 Seconds (11.1-14.7)
[2019-07-01 10:05] LABS: Alanine Aminotransferase 17 U/L (4-50); Albumin Level 3.8 g/dL (3.5-5.1); Alkaline Phosphatase 70 U/L (38-126); Aspartate Amino Transferase 18 U/L (17-59); Bilirubin,Total 0.5 mg/dL (0.2-1.3); Blood Urea Nitrogen 11 mg/dL (9-20); Calcium 9.1 mg/dL (8.4-10.2); Carbon Dioxide 30 mmol/L (22-30); Chloride 100 mmol/L (98-107); Estimated Glomerular Filt Rate > 60; Glucose 141 mg/dL (75-110); Partial Thromboplastin Time 33.5 SECONDS (22.3-36.8); Potassium 3.9 mmol/L (3.4-5.0); Sodium 137 mmol/L (137-145)
[2019-07-01 10:17] LABS: Troponin I 0.022 ng/mL (0.000-0.034)
[2019-07-01] MEDS: ASPIRIN 81 MG CHEWABLE TABLET 324 MG PO (10:44)
[2019-07-01] MEDS: NITROGLYCERIN OINTMENT 1 INCH DOSE TRANSDERM (10:44)
--- NOTE | 2019-07-01 12:50 | PM.IMHP ---
H&P: HPI History of Present Illness Chief complaint: Chest pain Narrative: Alfredo Cody is a pleasant 73-year-old male with coronary artery disease with history of stents, peripheral vascular disease status post bilateral adjyi-sar-emdl amputation, hypertension, and insulin-dependent type 2 diabetes mellitus who presented to the emergency department earlier this morning via EMS from [facility] for evaluation of chest pain. He is known to the hospitalist service and in fact he was admitted to us twice in the month of May 2019; hospitalized June 05 through June 11 with sepsis due to ESBL E coli urinary tract infection. He was admitted once again June 13 through the after he presented with a syncopal episode. He was found to have a necrotic and infected left ischial pressure wound which was debrided. He has been feeling well since that most recent discharge. In any event, this morning, shortly after waking from sleep, he developed left anterior chest pain that he describes ?like a burning inside.? The pain did not radiate. Associated symptoms include nausea. He gives no aggravating or alleviating factors, and says it resolved on its own within approximately 30 minutes time. This is the exact same sensation he had prior to having stents placed in 2010. He denies that the pain is similar to when he experiences indigestion/heartburn. No associated shortness of breath or sweats. Given his history of coronary artery disease, he is being admitted to rule out acute coronary syndrome. At the time my evaluation he has no complaints except for wanting a drink of water. Review of Systems Review of Systems: Narrative: Twelve systems were reviewed with pertinent positives and negatives as per HPI. He denies fever, chills, and sweats. Recent hospitalizations as per HPI. No cold or flu symptoms. He denies pleuritic pain. No orthopnea or PND. Denies vomiting. No diarrhea or dysuria. Complains of constipation, and says he has not had a good bowel movement since March. During his hospitalizations in May, he had frequent episodes of hypoglycemia in the mornings, and has since had a pretty significant decrease in his Lantus dosing. No blurry vision, polydipsia, or polyuria. Except as documented, all other systems were reviewed and are negative. [facility] Past Medical History Medical History (Updated 07/01/19 @ 17:34 by Samantha G. Gerling, PA-C) Benign prostatic hyperplasia Chronic anemia Congestive heart failure Coronary artery disease Cardiac catheterization in May [address] Gary showed 3 vessel disease for which she was transferred to [facility] for consideration for bypass. Ultimately he had multiple stents placed. Decubitus skin ulcer Dementia Depression Fracture of left hip requiring operative repair Gamma aysha for left intratrochanteric fracture in November [address] Castano. History of ESBL E. coli infection UTI in May 2019. History of MRSA infection Hyperlipidemia Hypertension Hypothyroidism Insulin dependent type 2 diabetes mellitus With diabetic peripheral neuropathy. Hemoglobin A1c was 6.7% in December 2018. Osteoarthritis Peripheral vascular disease With history of lower extremity stents and bilateral carotid artery stents. Status post bilateral qsldh-fuf-tbzs amputations Surgical History Surgical History (Updated 07/01/19 @ 17:32 by Samantha Terrazas PA-C) History of below-knee amputation of both lower extremities History of coronary artery stent placement Status post debridement Left ischial decubitus ulcer. Family History Family History Father AA (alcohol abuse) Sibling Breast cancer Mother Ovarian cancer Social History Social History (Updated 07/01/19 @ 17:27 by Samantha Terrazas PA-C) Social History: The patient is single and has no children. He lives in assisted living
--- NOTE | 2019-07-01 15:34 | PC.NURSE ---
This patient, Alfredo Cody, was admitted to IMU Room 201-01. Patient/family oriented to hospital policies and general routines including ID bracelet, bed and alarms, visiting hours, pain management, procedures, bathroom and other care routines, personal items, smoking policy, room service/diet, and visiting hours. Valuables list has been completed. Information on how to activate the Rapid Response Team has been discussed. Patient/Family are encouraged to report perceived risks to care and to ask questions if they do not understand what they are told or what they should do.
[2019-07-01 16:31] LABS: Troponin I 0.082 ng/mL (0.000-0.034)
[2019-07-01 17:30] LABS: Glucose Point of Care 95 (65-105)
[2019-07-01 20:52] LABS: Glucose Point of Care 117 (65-105)
[2019-07-01] MEDS: AMLODIPINE BESYLATE 5 MG TABLET PO (21:11)
[2019-07-01] MEDS: ATORVASTATIN 40 MG TABLET 80 MG PO (21:12)
[2019-07-01] MEDS: INSULIN GLARGINE (*BKC) 100 UNITS/ML 15 UNITS SUB-Q (21:13)
[2019-07-02] VITALS (10 sets, daily range): BP systolic 115–121; BP diastolic 37–60; PULSE 64–81; RESP 18–20; TEMP 36.1–36.8; O2SAT 97–100; BMI 24.3
[2019-07-02] MEDS: GABAPENTIN 300 MG CAPSULE PO ×2 (05:02→13:49)
[2019-07-02 05:32] LABS: Hematocrit 34.6 % (42.0-52.0); Hemoglobin 10.9 g/dL (14.0-18.0); Mean Corpuscular HGB Conc 31.5 g/dl (32-36); Mean Corpuscular Hemoglobin 27.2 pg (26-34); Mean Corpuscular Volume 86.3 fl (80-100); Mean Platelet Volume 10.9 fl (7.4-10.4); Platelet Count Result 234 k/mm3 (150-375); Red Blood Count 4.01 M/mm3 (4.6-6.20); Red Cell Distribution Width 16.2 % (11.5-14.5); White Blood Count 9.3 K/mm3 (4.5-10.0)
[2019-07-02 05:48] LABS: Alanine Aminotransferase 15 U/L (4-50); Albumin Level 3.4 g/dL (3.5-5.1); Alkaline Phosphatase 68 U/L (38-126); Aspartate Amino Transferase 17 U/L (17-59); Bilirubin,Total 0.5 mg/dL (0.2-1.3); Blood Urea Nitrogen 16 mg/dL (9-20); Calcium 8.9 mg/dL (8.4-10.2); Carbon Dioxide 29 mmol/L (22-30); Chloride 100 mmol/L (98-107); Estimated CRCL calculation 92 ml/min; Estimated Glomerular Filt Rate > 60; Glucose 125 mg/dL (75-110); Potassium 3.7 mmol/L (3.4-5.0); Sodium 136 mmol/L (137-145)
[2019-07-02 07:33] LABS: Glucose Point of Care 118 (65-105)
[2019-07-02] MEDS: POLYSACCHARIDE IRON COMPLEX 150 MG CAPSULE PO (08:25)
[2019-07-02] MEDS: METOCLOPRAMIDE HCL 10 MG TABLET PO ×2 (08:26→13:49)
[2019-07-02] MEDS: ASPIRIN 325 MG ENTERIC TABLET PO (08:26)
[2019-07-02] MEDS: FINASTERIDE 5 MG TABLET PO (08:26)
[2019-07-02] MEDS: MEMANTINE 5 MG TABLET PO (08:26)
[2019-07-02] MEDS: CHOLECALCIFEROL 1,000 UNIT TABLET 1000 UNITS PO (08:26)
[2019-07-02] MEDS: METOPROLOL TARTRATE 25 MG TABLET PO (08:26)
[2019-07-02] MEDS: FUROSEMIDE 20 MG TABLET PO (08:26)
[2019-07-02] MEDS: ACETAMINOPHEN 500 MG TABLET 1000 MG PO (08:31)
[2019-07-02] MEDS: SILVERGEL (ELTA) 45 ML 1 APPLIC TOPICAL (09:16)
--- NOTE | 2019-07-02 09:48 | PM.IMPN ---
Progress Note: A&P Assessment and Plan (1) Chest pain: Qualifiers: Chest pain type: unspecified Qualified Code(s): R07.9 - Chest pain, unspecified Code(s): R07.9 - Chest pain, unspecified Status: Acute Assessment and Plan: Seems a bit atypical but similar to prior angina Troponin did rise a bit He seems very comfortable now Cardiology to evaluate to determine whether invasive versus noninvasive evaluation might be the best approach Get records from [facility] (2) Elevated troponin I level: Code(s): R79.89 - Other specified abnormal findings of blood chemistry Status: Acute Assessment and Plan: (3) Insulin dependent type 2 diabetes mellitus: Code(s): E11.9 - Type 2 diabetes mellitus without complications; Z79.4 - manager intermediate (current) use of insulin Status: Acute Assessment and Plan: Continue home regimen (4) Decubitus ulcer of left ischium, unstageable: Code(s): L89.320 - Pressure ulcer of left buttock, unstageable Status: Acute Assessment and Plan: Continue wound care (5) Chronic anemia: Code(s): D64.9 - Anemia, unspecified Status: Acute Assessment and Plan: Relatively stable (6) CAD (coronary artery disease): Qualifiers: Coronary Disease-Associated Artery/Lesion type: unspecified vessel or lesion type [place] vs. transplanted heart: three affiliated heart Associated angina: without angina Qualified Code(s): I25.10 - Atherosclerotic heart disease of [place] coronary artery without angina pectoris Code(s): I25.10 - Atherosclerotic heart disease of [place] coronary artery without angina pectoris Status: Chronic Assessment and Plan: Hx 4 stents at various times Subjective Date/time seen: 07/02/19 09:48 Interval history: Burning left lateral chest discomfort for about 30 minutes June 2049 in the morning. Associated lightheaded feeling. Very similar to the left lateral chest pain he had prior to his last stent. No shortness of breath. No palpitations. No nausea. No sweats. No heartburn. He has a total of 4 coronary stents. Last coronary angiogram and stent was performed at the [facility] about 2 years ago. Review of Systems Review of Systems: All systems reviewed & are unremarkable except as noted in HPI and below Exam Narrative: Exam Narrative: HEENT: EOMI, PERRL, pharyngeal mucosa pink and intact NECK: No JVD CHEST: Clear to auscultation. Normal effort. HEART: NL S1/S2, regular, no murmur ABDOMEN: BS+, soft, nontender, no mass, no bruits EXTREMITIES: Bilateral LE amputations NEUROLOGIC: CN intact and symmetric to inspection. MUSCULOSKELETAL: Tone and strength symmetric. PSYCH: Alert. Oriented to person, place, and time. Objective Data Vital Signs Vital Signs: Vital Signs - 24 hr 07/01/19 10:15 07/01/19 12:00 07/01/19 13:00 Temperature Pulse Rate 81 61 57 L Respiratory Rate 16 14 16 Blood Pressure 136/40 L 114/47 L 90/50 L Pulse Oximetry 100 99 100 07/01/19 14:00 07/01/19 14:45 07/01/19 15:00 Temperature Pulse Rate 58 L 58 L 63 Respiratory Rate 18 16 16 Blood Pressure 95/45 L 99/50 L 99/44 L Pulse Oximetry 99 99 99 07/01/19 16:00 07/01/19 18:00 07/01/19 18:01 Temperature 96.8 F L Pulse Rate 67 78 65 Respiratory Rate 20 Blood Pressure 97/44 L Pulse Oximetry 100 07/01/19 20:00 07/01/19 21:36 07/01/19 23:51 Temperature 97.4 F L 98.1 F Pulse Rate 76 76 79 Respiratory Rate 18 18 Blood Pressure 99/42 L 124/52 L Pulse Oximetry 97 98 07/01/19 23:56 07/02/19 01:41 07/02/19 03:28 Temperature Pulse Rate 78 79 79 Respiratory Rate Blood Pressure Pulse Oximetry 07/02/19 04:44 07/02/19 06:00 07/02/19 06:59 Temperature 97.3 F L 98.3 F Pulse Rate 72 81 81 Respiratory Rate 18 20 Blood Pressure 121/60 115/52 L Pulse Oximetry 100 97 07/02/19 08:00 07/02/19 08:26 Temperature Pul
[2019-07-02 10:35] LABS: Troponin I 0.032 ng/mL (0.000-0.034)
--- NOTE | 2019-07-02 13:49 | PM.CNCAR ---
Assessment and Plan Additional Plan 73-year-old patient with a history of coronary disease with a history of several interventions by his description all done at the [facility] nothing done recently. He is actively followed by that institution. He came in with an episode of chest pain that occurred apparently in an ambulance while he was here coming in for some other type of outpatient procedure. The symptom was self-limited. There is a trivial rise in the troponin but not to the level or I would give him the diagnosis of acute coronary syndrome. His ECG shows a right bundle branch block and no significant ischemic changes. I believe this patient should be allowed to be discharge back to the group home he should have follow-up with his stick feeder at the [facility] arranged. It is not necessary for me to bring him to the cardiac cath lab technologist here at [facility] since there is no significant evidence of an acute coronary syndrome particularly since we have none of the records of his previous interventions. Farhad Gary MD [facility] History of Present Illness History of Present Illness Consult date/time: 07/02/19 13:49 Consult reason: chest pain Reason For Visit: Chest pain Narrative: This is a 73-year-old man I am seeing at the request of the hospitalist this afternoon who was admitted to the IMU because of an episode of chest pain that occurred yesterday. According to the history the patient was actually in a van or ambulance on the way from the group home where he resides into the hospital for some sort of outpatient testing. On the way here he reported an episode of some chest pain which was self-limited but resulted MS diverting him to the emergency room for further evaluation. He describes the pain is a left lateral burning sensation which was not associated with any shortness of breath diaphoresis nausea or vomiting. The symptoms altogether lasted for several minutes and then subsided again without intervention. His electrocardiogram shows sinus mechanism with right bundle branch block but no acute ischemic or injury is ST segment deviation. His troponin levels were done of course x3 sets and have risen slightly but just out of normal range at 0.0 8. As result of this we are seeing him in consultation. Apparently this is a gentleman known to have multivessel coronary disease as well as extensive peripheral vascular disease with bilateral vszkv-znt-kpvp amputations who gets his care at the [facility]. He states that since about 2010 until about 2 years ago he has had at least 4 5 coronary interventions with stent procedures performed. He has a stick feeder at the [facility] that provides his regular care as well as his primary care physician at that institution. The patient does not receive any of his care at [facility]. Apparently he was brought here by the ambulance because he was on his way here anyway and if it is the nearest facility to the group home where he resides. The patient has a history also of hypertension diabetes and dyslipidemia. He denies any sense of palpitations orthopnea PND. Review of Systems Constitutional: Constitutional: Reports no additional constitutional complaints Eyes: Eyes: Reports no additional eye complaints ENT: Reports system reviewed and no additional complaints, except as documented Cardiovascular: Cardiovascular: Reports as per HPI Respiratory: Respiratory: Reports no additional respiratory complaints Gastrointestinal: Gastrointestinal: Reports no additional gastrointestinal complaints Musculoskeletal: Musculoskeletal: Reports no additional musculoskeletal complaints Comments: Occasional positional right and left shoulder pain. Integumentary/Breasts: Skin/Breast: Reports system reviewed and no additional complaints, except as docu Neurologic: Reports system reviewed and no additional complaints, except as documented Endocrine: Endocrine: Reports no additional end
[2019-07-02 13:58] LABS: Glucose Point of Care 120 (65-105)
--- NOTE | 2019-07-02 14:39 | PM.DS ---
DS: Diagnosis Admitting Diagnosis Admitting Diagnosis: Chest pain, unspecified Discharge Diagnosis (1) Chest pain: Qualifiers: Chest pain type: unspecified Qualified Code(s): R07.9 - Chest pain, unspecified Code(s): R07.9 - Chest pain, unspecified Status: Acute Assessment and Plan: Seems a bit atypical but similar to prior angina Troponin did rise a bit He seems very comfortable now F/u as outpatient at [facility] (2) Elevated troponin I level: Code(s): R79.89 - Other specified abnormal findings of blood chemistry Status: Acute Assessment and Plan: As above (3) Insulin dependent type 2 diabetes mellitus: Code(s): E11.9 - Type 2 diabetes mellitus without complications; Z79.4 - senior living (current) use of insulin Status: Acute Assessment and Plan: Continue home regimen (4) Decubitus ulcer of left ischium, unstageable: Code(s): L89.320 - Pressure ulcer of left buttock, unstageable Status: Acute Assessment and Plan: Continue wound care (5) Chronic anemia: Code(s): D64.9 - Anemia, unspecified Status: Acute Assessment and Plan: Relatively stable (6) CAD (coronary artery disease): Qualifiers: Coronary Disease-Associated Artery/Lesion type: unspecified vessel or lesion type [place] vs. transplanted heart: [place] heart Associated angina: without angina Qualified Code(s): I25.10 - Atherosclerotic heart disease of [place] coronary artery without angina pectoris Code(s): I25.10 - Atherosclerotic heart disease of [place] coronary artery without angina pectoris Status: Chronic Assessment and Plan: Hx 4 stents at various times DS: Summary Hospital Course Reason for hospitalization: Chest pain Hospital Course: Onset of burning left lateral chest pain at rest. Olzh-[id number]. No associated symptoms. Duration about 30 minutes. No EKG changes. Troponin increased slightly. No evidence for acute coronary syndrome. Cardiology agree there was no acute coronary syndrome. Patient is followed closely at the [facility] in [place]. As he has been pain-free since admission they recommend that he follow-up there was an outpatient since they have all of his records there. At this time it is unclear whether the etiology of his pain was anginal. Status at Discharge Functional status at discharge: bed bound Overall status at discharge: patient is back to baseline Time Spent with Patient Time attestation: Total time spent providing and/or coordinating discharge services: 36 min Exam Narrative: Exam Narrative: HEENT: EOMI, PERRL, pharyngeal mucosa pink and intact NECK: No JVD CHEST: Clear to auscultation. Normal effort. HEART: NL S1/S2, regular, no murmur ABDOMEN: BS+, soft, nontender, no mass, no bruits EXTREMITIES: Bilateral LE amputations NEUROLOGIC: CN intact and symmetric to inspection. MUSCULOSKELETAL: Tone and strength symmetric. PSYCH: Alert. Oriented to person, place, and time. DS: Data Data Completed and Pending Labs on day of discharge: Labs from last 24 hours 07/02/19 07/02/19 07/02/19 13:48 10:04 07:31 WBC RBC Hgb Hct MCV MCH MCHC RDW Plt Count MPV Sodium Potassium Chloride Carbon Dioxide BUN Creatinine Estim Creat Clear Calc Estimated GFR Glucose POC Capillary Glucose 120 H 118 H Calcium Total Bilirubin AST ALT Alkaline Phosphatase Troponin I 0.032 Total Protein Albumin 07/02/19 07/02/19 07/01/19 04:11 04:11 20:50 WBC 9.3 RBC 4.01 L Hgb 10.9 L Hct 34.6 L MCV 86.3 MCH 27.2 MCHC 31.5 L RDW 16.2 H Plt Count 234 MPV 10.9 H Sodium 136 L Potassium 3.7 Chloride 100 Carbon Dioxide 29 BUN 16 Creatinine 0.70 Estim Creat Clear Calc 92 Estimated GFR > 60 Glucose 125 H POC Capillary Glucose 117 H
--- NOTE | 2019-07-05 11:43 | PC.NURSE ---
Received order for Bactroban 2% BID to bilateral nares, for positive MRSA nasal swab. Spoke with nurse, Destinee at [facility]. Order faxed to nurse. She states understanding and agreement with order.
== END 2019-07-02 15:53 | DRG 313 ==
LOC: ANHED 11:43 → ANHIMU 15:26
PROVIDERS: Physician Assistant; Admitting Provider Internal Medicine; Emergency Provider Emergency Medicine; PCP Family Medicine; Visit Provider Internal Medicine
DX: R07.9 Chest pain, unspecified (principal); I25.10 Atherosclerotic heart disease of native coronary artery without angina pectoris; Z95.5 Presence of coronary angioplasty implant and graft; Z89.512 Acquired absence of left leg below knee; Z89.511 Acquired absence of right leg below knee; N40.0 Benign prostatic hyperplasia without lower urinary tract symptoms; D64.9 Anemia, unspecified; I50.9 Heart failure, unspecified; Z86.14 Personal history of Methicillin resistant Staphylococcus aureus infection; E78.5 Hyperlipidemia, unspecified; E03.9 Hypothyroidism, unspecified; M19.90 Unspecified osteoarthritis, unspecified site; E11.51 Type 2 diabetes mellitus with diabetic peripheral angiopathy without gangrene; Z91.81 History of falling; L89.320 Pressure ulcer of left buttock, unstageable; I10 Essential (primary) hypertension; F03.90 Unspecified dementia, unspecified severity, without behavioral disturbance, psychotic disturbance, mood disturbance, and anxiety
CPT/HCPCS: 36415; 71046; 74018; 80053; 84484; 85025; 85027; 85610; 85730; 87081; 93005; 99285; A9270; J1815

== ENCOUNTER 2019-08-28 23:44 | Emergency (ER) | payer MEDICARE, OTHER, MEDICAID, SELFPAY ==
--- NOTE | 2019-08-28 | ECG_ITS ---
Measurements Intervals [place] Rate: 62 P: -46 CA: 107 QRS: -69 QRSD: 147 T: 66 QT: 403 QTc: 410 Interpretive Statements SINUS RHYTHM WITH SHORT CA INTERVAL RIGHT BUNDLE BRANCH BLOCK LEFT ANTERIOR FASCICULAR BLOCK BASELINE ARTIFACT- I, III, AVR, AVL, AVF ABNORMAL ECG Electronically Signed On 08-29-2019 7:49:29 CDT by Petar Kinsey D.O.
--- NOTE | ~2019-08-28 | XR_ITS ---
XR chest 1V portable 08/29/2019 00:54 Indication: Chest pain Procedure: AP portable chest Comparison: Comparison to multiple prior studies sequentially, with oldest reviewed study dated 10/2018. Findings: Heart size normal. No focal air space disease, pulmonary edema, pleural effusion or suspect ed pneumothorax. No acute osseous abnormality. Impression: 1: No acute cardiopulmonary disease. Reviewed, dictated and finalized at location A. Impression: 1: No acute cardiopulmonary disease.
[2019-08-28 23:55] VITALS: BP 118/59; PULSE 66; RESP 23; TEMP 36.4; O2SAT 97
[2019-08-29 00:17] LABS: Basophils Absolute Auto 0.1 K/mm3 (0.0-0.1); Basophils Percent Auto 0.5 % (0.2-1.2); Eosinophils Absolute Auto 0.1 K/mm3 (0-0.3); Eosinophils Percent Auto 0.6 % (0-4.4); Hematocrit 34.6 % (42.0-52.0); Hemoglobin 11.3 g/dL (14.0-18.0); Immature Granulocyte Absolute 0.03 K/mm3 (0.00-0.031); Immature Granulocyte Percent A 0.3 % (0-0.5); Lymphocytes Absolute Auto 2.25 K/mm3 (0.9-3.2); Lymphocytes Percent Auto 23.4 % (18.3-44.2); Mean Corpuscular HGB Conc 32.7 g/dl (32-36); Mean Corpuscular Hemoglobin 28.1 pg (26-34); Mean Corpuscular Volume 86.1 fl (80-100); Monocytes Absolute Auto 0.7 K/mm3 (0.1-0.6); Neutrophils Absolute Auto 6.5 K/mm3 (1.3-6.7); Neutrophils Percent Auto 68.2 % (45.5-73.1); Platelet Count Result 253 k/mm3 (150-375); Red Blood Count 4.02 M/mm3 (4.6-6.20); Red Cell Distribution Width 15.8 % (11.5-14.5); White Blood Count 9.6 K/mm3 (4.5-10.0)
[2019-08-29] MEDS: ASPIRIN 81 MG CHEWABLE TABLET 324 MG PO (00:20)
[2019-08-29 00:21] VITALS: PULSE 62; O2SAT 96
[2019-08-29 00:27] LABS: Prothrombin Time 12.4 Seconds (11.1-14.7)
[2019-08-29 00:28] LABS: Partial Thromboplastin Time 33.9 SECONDS (22.3-36.8)
[2019-08-29 00:29] LABS: Blood Urea Nitrogen 15 mg/dL (9-20); Calcium 8.7 mg/dL (8.4-10.2); Carbon Dioxide 26 mmol/L (22-30); Chloride 98 mmol/L (98-107); Estimated Glomerular Filt Rate > 60; Glucose 128 mg/dL (75-110); Potassium 4.1 mmol/L (3.4-5.0); Sodium 131 mmol/L (137-145)
--- NOTE | 2019-08-29 00:29 | ED.CHESTPAIN ---
HPI - Chest Pain General Chief Complaint: Chest Pain Stated Complaint: CP Time Seen by Provider: 08/29/19 00:14 Source: patient Mode of arrival: EMS Limitations: no limitations History of Present Illness HPI narrative: Patient is a 74-year-old male who presents to the emergency department with complaint of chest pain. Patient has known history of coronary artery disease and stents. Patient states this chest pain felt similar to what he has had before in the past. He denies any associated symptoms. Pain occurred at rest and was brief in nature and has since subsided. Patient was admitted to the hospital on 07/01/2019 for similar symptoms. Patient had mild bump in his troponin, but nothing diagnostic of [place]. Patient was seen by cardiology who advised to follow-up with his credentialing assistant at the [facility] as patient did not warrant emergent invasive evaluation during his hospital stay. MD complaint: chest pain Pertinent past history: coronary artery disease Timing of current episode: now resolved Prior episodes: Yes Onset: during rest Pain location: left chest Pain radiation: none Quality: burning Treatment prior to arrival: none Related Data Home Medications Medication Instructions Recorded Confirmed Poly-Iron 150 Forte 1 cap PO BID 06/05/19 08/28/19 cholecalciferol (vitamin D3) 25 mcg PO DAILY #0 06/05/19 08/28/19 finasteride 5 mg PO DAILY 06/05/19 08/28/19 furosemide 20 mg PO DAILY 06/05/19 08/28/19 gabapentin 300 mg PO TID 06/05/19 08/28/19 ipratropium-albuterol 3 ml INHALATION TID PRN 06/05/19 08/28/19 lisinopril 10 mg PO DAILY 06/05/19 08/28/19 memantine [Namenda] 5 mg PO BID 06/05/19 08/28/19 metformin 1,000 mg PO DAILY 06/05/19 08/28/19 metoprolol tartrate 25 mg PO BID 06/05/19 08/28/19 ondansetron 4 mg PO Q6H PRN 06/05/19 08/28/19 simethicone 125 mg PO QID 06/05/19 08/28/19 insulin aspart U-100 [Novolog See Protocol SUBCUT QID 07/01/19 08/28/19 Flexpen U-100 Insulin] metoclopramide HCl [Reglan] 10 mg PO TIDWM 07/01/19 08/28/19 polyethylene glycol 3350 17 g PO DAILY 07/01/19 08/28/19 senna 8.6 mg PO BID 07/01/19 08/28/19 Allergies Allergy/AdvReac Type Severity Reaction Status Date / Time shrimp Allergy Mild Unknown Verified 08/28/19 23:49 sulfamethoxazole Allergy Unknown Verified 08/28/19 23:49 [From Bactrim] trimethoprim [From Bactrim] Allergy Unknown Verified 08/28/19 23:49 Review of Systems Review of Systems: All systems reviewed & are unremarkable except as noted in HPI and below PMFSH Past Medical History Medical History Benign prostatic hyperplasia Chronic anemia Congestive heart failure Coronary artery disease Cardiac catheterization in May [address] Gary showed 3 vessel disease for which she was transferred to [facility] for consideration for bypass. Ultimately he had multiple stents placed. Decubitus skin ulcer Dementia Depression Fracture of left hip requiring operative repair Gamma aysha for left intratrochanteric fracture in November [address] Castano. History of ESBL E. coli infection UTI in May 2019. History of MRSA infection Hyperlipidemia Hypertension Hypothyroidism Insulin dependent type 2 diabetes mellitus With diabetic peripheral neuropathy. Hemoglobin A1c was 6.7% in December 2018. Osteoarthritis Peripheral vascular disease With history of lower extremity stents and bilateral carotid artery stents. Status post bilateral [id number] amputations Surgical History Surgical History History of below-knee amputation of both lower extremities History of coronary artery stent placement Status post debridement Left ischial decubitus ulcer. Social History Social History Social History: The patient is single and has no children. He lives in assisted living at [facility]
[2019-08-29 00:41] LABS: Troponin I < 0.012 ng/mL (0.000-0.034)
[2019-08-29 01:26] VITALS: BP 112/35; PULSE 57; RESP 21; O2SAT 98
[2019-08-29 02:45] VITALS: BP 104/48; PULSE 52; RESP 12; TEMP 36.7; O2SAT 97
[2019-08-29 03:30] LABS: Troponin I 0.015 ng/mL (0.000-0.034)
--- NOTE | 2019-08-29 03:43 | PC.NURSE ---
Called [facility] to transport back to facility...[id number]
[2019-08-29 04:22] VITALS: BP 119/51; PULSE 57; RESP 17; O2SAT 99
[2019-08-29 05:48] VITALS: BP 111/40; PULSE 56; RESP 15; TEMP 36.4; O2SAT 99
== END 2019-08-29 05:50 ==
PROVIDERS: Emergency Provider Emergency Medicine; PCP Family Medicine
DX: R07.9 Chest pain, unspecified (principal); I25.10 Atherosclerotic heart disease of native coronary artery without angina pectoris; Z95.5 Presence of coronary angioplasty implant and graft; N40.0 Benign prostatic hyperplasia without lower urinary tract symptoms; I50.9 Heart failure, unspecified; F03.90 Unspecified dementia, unspecified severity, without behavioral disturbance, psychotic disturbance, mood disturbance, and anxiety; Z86.14 Personal history of Methicillin resistant Staphylococcus aureus infection; E78.5 Hyperlipidemia, unspecified; I11.0 Hypertensive heart disease with heart failure; E03.9 Hypothyroidism, unspecified; E11.42 Type 2 diabetes mellitus with diabetic polyneuropathy; M19.90 Unspecified osteoarthritis, unspecified site; E11.51 Type 2 diabetes mellitus with diabetic peripheral angiopathy without gangrene; Z79.4 Long term (current) use of insulin; Z79.84 Long term (current) use of oral hypoglycemic drugs; F17.290 Nicotine dependence, other tobacco product, uncomplicated; Z66 Do not resuscitate; I45.2 Bifascicular block
CPT/HCPCS: 36415; 71045; 80048; 84484; 85025; 85610; 85730; 93005; 99284; A9270

== ENCOUNTER 2020-03-31 04:32 | Emergency (ER) | payer MEDICARE, OTHER, MEDICAID, SELFPAY ==
[2020-03-31] VITALS (29 sets, daily range): BP systolic 109–171; BP diastolic 42–86; PULSE 79–93; RESP 12–22; TEMP 35.6; O2SAT 95–100
--- NOTE | 2020-03-31 04:44 | ECG_ITS ---
Measurements Intervals [place] Rate: 92 P: 14 IA: 131 QRS: -74 QRSD: 142 T: 70 QT: 370 QTc: 458 Interpretive Statements SINUS RHYTHM RIGHT BUNDLE BRANCH BLOCK LEFT ANTERIOR FASCICULAR BLOCK BASELINE ARTIFACT- I, II, III, AVR ABNORMAL ECG Electronically Signed On 03-31-2020 6:55:41 CLUB ATTENDANT by Petar Kinsey D.O.
--- NOTE | 2020-03-31 05:17 | ED.GENADULT ---
HPI - General Adult General Chief complaint: Abdominal Pain <wDight Cedillo MD - Last Filed: 04/01/20 19:11> Stated complaint: cp <Dwight Cedillo MD - Last Filed: 04/01/20 19:11> Time Seen by Provider: 03/31/20 09:52 <Dwight Cedillo MD - Last Filed: 04/01/20 19:11> History of Present Illness HPI narrative: Severe left sided chest pain since earlier this evening. Lasted about 10 minutes before resolving spontaneously. This was associated with nausea. He reports that he has had simiar pain in the past, but he cannot remeber what happened at that time. He has been pain free since before EMS arrivaed. He says that he now feels like he has mild gas. On review of the chart he has know CAD. He has had a few other visits similar to this one and nothing has turned up. <Dwight Cedillo MD - Last Filed: 04/01/20 19:11> Related Data Home medications: Home Medications Medication Instructions Recorded Confirmed Poly-Iron 150 Forte 1 cap PO BID 06/05/19 08/28/19 cholecalciferol (vitamin D3) 25 mcg PO DAILY #0 06/05/19 08/28/19 finasteride 5 mg PO DAILY 06/05/19 08/28/19 furosemide 20 mg PO DAILY 06/05/19 08/28/19 gabapentin 300 mg PO TID 06/05/19 08/28/19 ipratropium-albuterol 3 ml INHALATION TID PRN 06/05/19 08/28/19 lisinopril 10 mg PO DAILY 06/05/19 08/28/19 memantine [Namenda] 5 mg PO BID 06/05/19 08/28/19 metformin 1,000 mg PO DAILY 06/05/19 08/28/19 metoprolol tartrate 25 mg PO BID 06/05/19 08/28/19 ondansetron 4 mg PO Q6H PRN 06/05/19 08/28/19 simethicone 125 mg PO QID 06/05/19 08/28/19 insulin aspart U-100 [Novolog See Protocol SUBCUT QID 07/01/19 08/28/19 Flexpen U-100 Insulin] metoclopramide HCl [Reglan] 10 mg PO TIDWM 07/01/19 08/28/19 polyethylene glycol 3350 17 g PO DAILY 07/01/19 08/28/19 senna 8.6 mg PO BID 07/01/19 08/28/19 <Dwight Cedillo MD - Last Filed: 04/01/20 19:11> Allergies/adverse reactions: Allergies Allergy/AdvReac Type Severity Reaction Status Date / Time shrimp Allergy Mild Unknown Verified 08/30/19 14:01 sulfamethoxazole Allergy Unknown Verified 08/30/19 14:01 [From Bactrim] trimethoprim [From Bactrim] Allergy Unknown Verified 08/30/19 14:01 <Dwight Cedillo MD - Last Filed: 04/01/20 19:11> Review of Systems Review of Systems: All systems reviewed & are unremarkable except as noted in HPI and below <Dwight Cedillo MD - Last Filed: 04/01/20 19:11> Constitutional: Constitutional: Denies chills and Denies fever(s) <Dwight Cedillo MD - Last Filed: 04/01/20 19:11> ENT: Denies sore throat <Dwight Cedillo MD - Last Filed: 04/01/20 19:11> Cardiovascular: Cardiovascular: Reports chest pain <Dwight Cedillo MD - Last Filed: 04/01/20 19:11> Respiratory: Respiratory: Denies cough and Denies dyspnea <Dwight Cedillo MD - Last Filed: 04/01/20 19:11> Gastrointestinal: Gastrointestinal: Reports nausea <Dwight Cedillo MD - Last Filed: 04/01/20 19:11> Musculoskeletal: Musculoskeletal: Denies back pain <Dwight Cedillo MD - Last Filed: 04/01/20 19:11> Neurologic: Denies dizziness and Denies weakness <Dwight Cedillo MD - Last Filed: 04/01/20 19:11> Psychiatric: Psychiatric: Denies anxiety <Dwight Cedillo MD - Last Filed: 04/01/20 19:11> PMFSH Past Medical History Medical History: Medical History (Updated 04/01/20 @ 00:00 by Background Daemon) Benign prostatic hyperplasia Chronic anemia Congestive heart failure Coronary artery disease Cardiac catheterization in May [address] Gary showed 3 vessel disease for which she was transferred to [facility] for consideration for bypass. Ultimately he had multiple stents placed. Decubitus skin ulcer Dementia Depression Fracture of left hip requiring operative repair Gamma aysha for left intratrochanteric fracture in November [address] Castano. History of ESBL E. coli infection UTI in May 2019. Hi
[2020-03-31 05:28] LABS: Basophils Absolute Auto 0.1 K/mm3 (0.0-0.1); Basophils Percent Auto 0.4 % (0.2-1.2); Eosinophils Absolute Auto 0.1 K/mm3 (0-0.3); Eosinophils Percent Auto 1.2 % (0-4.4); Hematocrit 34.7 % (42.0-52.0); Hemoglobin 11.1 g/dL (14.0-18.0); Immature Granulocyte Absolute 0.05 K/mm3 (0.00-0.031); Immature Granulocyte Percent A 0.4 % (0-0.5); Lymphocytes Absolute Auto 1.38 K/mm3 (0.9-3.2); Lymphocytes Percent Auto 12.1 % (18.3-44.2); Mean Corpuscular Hemoglobin 27.9 pg (26-34); Mean Corpuscular Volume 87.2 fl (80-100); Mean Platelet Volume 9.6 fl (7.4-10.4); Monocytes Absolute Auto 0.7 K/mm3 (0.1-0.6); Monocytes Percent Auto 6.5 % (2.6-8.5); Neutrophils Percent Auto 79.4 % (45.5-73.1); Platelet Count Result 230 k/mm3 (150-375); Red Blood Count 3.98 M/mm3 (4.6-6.20); Red Cell Distribution Width 13.5 % (11.5-14.5); White Blood Count 11.4 K/mm3 (4.5-10.0)
[2020-03-31 05:41] LABS: INR 0.9; Prothrombin Time 12.5 Seconds (11.1-14.7)
[2020-03-31 05:42] LABS: Alanine Aminotransferase 18 U/L (4-50); Albumin Level 3.5 g/dL (3.5-5.1); Alkaline Phosphatase 82 U/L (38-126); Anion Gap 6 mmol/L (8-16); Aspartate Amino Transferase 23 U/L (17-59); Bilirubin,Total 0.4 mg/dL (0.2-1.3); Blood Urea Nitrogen 14 mg/dL (9-20); Calcium 8.6 mg/dL (8.4-10.2); Carbon Dioxide 25 mmol/L (22-30); Chloride 100 mmol/L (98-107); Estimated Glomerular Filt Rate > 60; Glucose 147 mg/dL (75-110); Partial Thromboplastin Time 30.9 SECONDS (22.3-36.8); Potassium 4.4 mmol/L (3.4-5.0); Sodium 131 mmol/L (137-145)
[2020-03-31 05:53] LABS: Troponin I 0.015 ng/mL (0.000-0.034)
[2020-03-31 08:52] LABS: Troponin I 0.012 ng/mL (0.000-0.034)
--- NOTE | 2020-03-31 10:13 | PC.NURSE ---
Report to [facility] staff member; aware pt. returning via EMS and we were given a 45 minute ETA for arrival to .
--- NOTE | 2020-04-01 11:37 | PCCCNOTE ---
Faxed facesheet [facility] on [facility]01[facility]20 to fax # .
== END 2020-03-31 11:05 ==
PROVIDERS: Emergency Medicine; Emergency Provider Emergency Medicine
DX: R07.9 Chest pain, unspecified (principal); E87.1 Hypo-osmolality and hyponatremia; F03.90 Unspecified dementia, unspecified severity, without behavioral disturbance, psychotic disturbance, mood disturbance, and anxiety; I25.10 Atherosclerotic heart disease of native coronary artery without angina pectoris; E11.42 Type 2 diabetes mellitus with diabetic polyneuropathy; E11.51 Type 2 diabetes mellitus with diabetic peripheral angiopathy without gangrene; E03.9 Hypothyroidism, unspecified; E78.5 Hyperlipidemia, unspecified; I50.9 Heart failure, unspecified; I11.0 Hypertensive heart disease with heart failure; N40.0 Benign prostatic hyperplasia without lower urinary tract symptoms; D64.9 Anemia, unspecified; M19.90 Unspecified osteoarthritis, unspecified site; Z86.14 Personal history of Methicillin resistant Staphylococcus aureus infection; Z79.4 Long term (current) use of insulin; Z89.512 Acquired absence of left leg below knee; Z89.511 Acquired absence of right leg below knee; Z95.5 Presence of coronary angioplasty implant and graft; Z66 Do not resuscitate; I45.2 Bifascicular block
CPT/HCPCS: 36415; 80053; 84484; 85025; 85610; 85730; 93005; 99284

== ENCOUNTER 2020-04-19 21:59 | Inpatient (IN) | payer MEDICARE, OTHER, MEDICAID, SELFPAY ==
--- NOTE | ~2020-04-19 | XR_ITS ---
XR chest 1V portable 04/19/2020 22:27 Indication: CHF. Hypertension. Coronary artery disease. Procedure: AP view of the chest Comparison: Comparison to multiple prior studies sequentially, with oldest reviewed study dated 11/2019. Findings: Heart size normal. Left basilar atelectasis calcified right hilar lymph node, consistent wi th chronic granulomatous disease. No pleural effusion or pneumothorax. No acute osseous abnormality. Impression: 1: Left basilar atelectasis. Reviewed, dictated and finalized at location A. D DESIGN ENGINEER Impression: 1: Left basilar atelectasis.
--- NOTE | ~2020-04-19 | CT_ITS ---
EXAMINATION: CT brain wo con DATE: 04/19/2020 22:21 INDICATION: Status post fall. Evaluate for intracranial hemorrhage. TECHNIQUE: Computed tomography (CT) of the head was performed without intravenous contrast. The dose- length product was 681.00 mGy-cm. The mA was adjusted according to patient size. Iterative reconstruc tion technique was employed. COMPARISON: CT dated 06/12/2019 FINDINGS: No acute intracranial hemorrhage, infarction, mass or mass effect. Mild atrophy. There are scattered mild periventricular and subcortical white matter changes, most likely related to small ves dylon ischemic disease (microangiopathy). Mild mucosal thickening in the ethmoid air cells. No depresse d skull fractures. There is a chronic right frontal lobe infarction. IMPRESSION: 1. No acute intracranial abnormality. 2: Chronic right frontal lobe infarction. 3: Chronic age-related findings. Reviewed, dictated and finalized at location A. ANET DEVELOPER
[2020-04-19 22:00] VITALS: BP 137/66; PULSE 101; RESP 16; TEMP 36.7; O2SAT 96
--- NOTE | 2020-04-19 22:01 | ED.AMS ---
HPI - Altered Mental Status General Chief Complaint: Altered Mental Status Stated Complaint: AMS Time Seen by Provider: 04/19/20 22:01 Source: patient and EMS Mode of arrival: EMS Limitations: no limitations History of Present Illness HPI narrative: Patient is a 74-year-old male who presents from nursing care facility where staff was concerned that perhaps he had a urinary tract infection given they thought that he was altered from baseline. Per staff report, he apparently had an unresponsive episode for about a minute earlier today but then returned to baseline. The patient states he currently feels fine. He is alert and oriented to person, place, and to time. He is not confused. He denies fever, chills, headache, chest pain, shortness of breath, abdominal pain, nausea or vomiting. He states that he ate today and otherwise feels fine. Patient states that the staff at the nursing facility were concerned that he was confused but he states he does not feel confused. Patient states he did slip out of his wheelchair 3 days ago, he states he may have hit his head on the ground but denies any loss of consciousness. He denies neck pain. Related Data Home Medications Medication Instructions Recorded Confirmed Poly-Iron 150 Forte 1 cap PO BID 06/05/19 08/28/19 cholecalciferol (vitamin D3) 25 mcg PO DAILY #0 06/05/19 08/28/19 finasteride 5 mg PO DAILY 06/05/19 08/28/19 furosemide 20 mg PO DAILY 06/05/19 08/28/19 gabapentin 300 mg PO TID 06/05/19 08/28/19 ipratropium-albuterol 3 ml INHALATION TID PRN 06/05/19 08/28/19 lisinopril 10 mg PO DAILY 06/05/19 08/28/19 memantine [Namenda] 5 mg PO BID 06/05/19 08/28/19 metformin 1,000 mg PO DAILY 06/05/19 08/28/19 metoprolol tartrate 25 mg PO BID 06/05/19 08/28/19 ondansetron 4 mg PO Q6H PRN 06/05/19 08/28/19 simethicone 125 mg PO QID 06/05/19 08/28/19 insulin aspart U-100 [Novolog See Protocol SUBCUT QID 07/01/19 08/28/19 Flexpen U-100 Insulin] metoclopramide HCl [Reglan] 10 mg PO TIDWM 07/01/19 08/28/19 polyethylene glycol 3350 17 g PO DAILY 07/01/19 08/28/19 senna 8.6 mg PO BID 07/01/19 08/28/19 Allergies Allergy/AdvReac Type Severity Reaction Status Date / Time shrimp Allergy Mild Unknown Verified 08/30/19 14:01 sulfamethoxazole Allergy Unknown Verified 08/30/19 14:01 [From Bactrim] trimethoprim [From Bactrim] Allergy Unknown Verified 08/30/19 14:01 Review of Systems Review of Systems: Narrative: CONSTITUTIONAL: Denies fever, chills, or sweats. EYES: Denies visual changes, redness, or discharge. ENT: Denies rhinorrhea, congestion, sore throat, or otalgia. CARDIOVASCULAR: Denies chest pain, palpitations, or edema. RESPIRATORY: Denies cough or dyspnea. GASTROINTESTINAL: Denies abdominal pain, nausea, vomiting, or diarrhea. GENITOURINARY: Denies dysuria or hematuria. SKIN: Denies rash or itching. MUSCULOSKELETAL: Denies back pain, joint pain, or myalgia. NEUROLOGIC: Denies headache, numbness, or weakness. [facility] Past Medical History Medical History (Updated 04/20/20 @ 00:13 by Alina Varela MD) Benign prostatic hyperplasia Chronic anemia Congestive heart failure Coronary artery disease Cardiac catheterization in May [address] Gary showed 3 vessel disease for which she was transferred to [facility] for consideration for bypass. Ultimately he had multiple stents placed. Decubitus skin ulcer Dementia Depression Fracture of left hip requiring operative repair Gamma aysha for left intratrochanteric fracture in November [address] Castano. History of ESBL E. coli infection UTI in May 2019. History of MRSA infection Hyperlipidemia Hypertension Hypothyroidism Insulin dependent type 2 diabetes mellitus With diabetic peripheral neuropathy. Hemoglobin A1c was 6.7% in December 2018. Osteoarthritis Peripheral vascular disease With history of lower extremity stents and bilateral carotid artery stents. Status post bilateral [id number] a
--- NOTE | 2020-04-19 22:06 | ECG_ITS ---
Measurements Intervals [place] Rate: 104 P: -7 MI: 124 QRS: -67 QRSD: 140 T: 75 QT: 334 QTc: 441 Interpretive Statements SINUS TACHYCARDIA RIGHT BUNDLE BRANCH BLOCK LEFT ANTERIOR FASCICULAR BLOCK ABNORMAL ECG Electronically Signed On 04-24-2020 15:58:39 PROFESSOR OF PUBLIC ADMINISTRATION by Petar Kinsey D.O.
[2020-04-19 22:47] LABS: Glucose Point of Care 147 (65-105)
[2020-04-19 23:26] LABS: Add Urine Microscopic? YES; Appearance Urine Cloudy (Clear); Bacteria Urine 2+ /hpf; Bilirubin Urine Negative (Negative); Blood Urine 2+ (Negative); Color Urine Yellow (Yellow); Glucose Urine UA Negative (Negative); Ketones Urine Negative (Negative); Leukocyte Esterase Ur 2+ LEU/UL (Negative); Mucus Urine Rare /lpf; Nitrate Urine Negative (Negative); Protein Urine 2+ mg/dL (Negative); Specific Grav Ur 1.018 (1.001-1.035); Squamous Epithelial Cell Urine Few /hpf (Few); WBC Urine 31-50 /hpf
[2020-04-20] VITALS (11 sets, daily range): BP systolic 109–139; BP diastolic 42–62; PULSE 92–112; RESP 15–18; TEMP 36.2–36.7; O2SAT 94–98; BMI 31.2
[2020-04-20] LABS: Anion Gap 10 mmol/L (8-16); Blood Urea Nitrogen 36 mg/dL (9-20); Calcium 8.8 mg/dL (8.4-10.2); Carbon Dioxide 28 mmol/L (22-30); Chloride 94 mmol/L (98-107); Estimated Glomerular Filt Rate 46; Glucose 132 mg/dL (75-110); Potassium 4.5 mmol/L (3.4-5.0); Sodium 132 mmol/L (137-145)
[2020-04-20 00:15] LABS: Basophils Percent Auto 0.2 % (0.2-1.2); Eosinophils Percent Auto 0.1 % (0-4.4); Hematocrit 32.2 % (42.0-52.0); Hemoglobin 10.4 g/dL (14.0-18.0); Immature Granulocyte Absolute 0.03 K/mm3 (0.00-0.031); Immature Granulocyte Percent A 0.2 % (0-0.5); Lymphocytes Absolute Auto 1.19 K/mm3 (0.9-3.2); Lymphocytes Percent Auto 9.4 % (18.3-44.2); Mean Corpuscular HGB Conc 32.3 g/dl (32-36); Mean Corpuscular Hemoglobin 27.5 pg (26-34); Mean Corpuscular Volume 85.2 fl (80-100); Mean Platelet Volume 10.4 fl (7.4-10.4); Monocytes Absolute Auto 1.4 K/mm3 (0.1-0.6); Monocytes Percent Auto 11.2 % (2.6-8.5); Neutrophils Percent Auto 78.9 % (45.5-73.1); Platelet Count Result 224 k/mm3 (150-375); Red Blood Count 3.78 M/mm3 (4.6-6.20); Red Cell Distribution Width 14.3 % (11.5-14.5); White Blood Count 12.7 K/mm3 (4.5-10.0)
[2020-04-20] MEDS: SODIUM CHLORIDE 0.9% IV 1,000 ML 999 ML IV CONT (00:20)
--- NOTE | 2020-04-20 00:41 | PM.IMHP ---
H&P: HPI History of Present Illness Date/Time: 04/20/20 00:41 Chief Complaint: altered mental status Narrative: This is a 74 year old morbidly obese Diabetic male with coronary artery disease with history of stents, peripheral vascular disease status post bilateral dthkm-upq-bjug amputation, hypertension, who is known to me from previous admissions for UTIs and who presented to the hospital after [facility] staff believed he was altered. Apparently he had an unresponsive episode for about a minute earlier today but then returned to baseline. Tonight in the ER the patient has no complaints and denies any fever, chills, headache, chest pain, shortness of breath, abdominal pain, nausea,vomiting, dysuria, or diarrhea. In the ER tonight routine labs were obtained which showed mild leukocytosis of 12,700, acute renal failure with a Cr of 1.50, and a grossly abnormal urinalysis. CT brain was obtained and did not show any acute abnormalities. The patient has been treated with IV fluids and IV Zosyn. His most recent urine culture from May 2019 showed a multidrug resistant E. coli. No other complaints tonight. Review of Systems Review of Systems: All systems reviewed & are unremarkable except as noted in HPI and below PMFSH Past Medical History Medical History Benign prostatic hyperplasia Chronic anemia Congestive heart failure Coronary artery disease Cardiac catheterization in May [address] Gary showed 3 vessel disease for which she was transferred to [facility] for consideration for bypass. Ultimately he had multiple stents placed. Decubitus skin ulcer Dementia Depression Fracture of left hip requiring operative repair Gamma aysha for left intratrochanteric fracture in November [address] Castano. History of ESBL E. coli infection UTI in May 2019. History of MRSA infection Hyperlipidemia Hypertension Hypothyroidism Insulin dependent type 2 diabetes mellitus With diabetic peripheral neuropathy. Hemoglobin A1c was 6.7% in December 2018. Osteoarthritis Peripheral vascular disease With history of lower extremity stents and bilateral carotid artery stents. Status post bilateral zkpil-mme-talv amputations Surgical History Surgical History History of below-knee amputation of both lower extremities History of coronary artery stent placement Status post debridement Left ischial decubitus ulcer. Family History Family History Father AA (alcohol abuse) Sibling Breast cancer Mother Ovarian cancer Social History Social History Social History: The patient is single and has no children. He lives in assisted living at [facility]. He typically gets most of his care at the [facility] in [facility]. 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 His haameiz-zj-vfn and sister, Lele and Rosario Diaz, are his surrogate decision makers. He has DNR paperwork that accompanies him. He smokes 4 to 5 cigars a day. He denies alcohol and drug use. Smoking status: Current every day smoker Tobacco type: cigars Additional smoking assessment comments: smokes 4 cigars per day Alcohol intake: former Drinks per week: 6 Substance use: never Gender identity (if verbalized by the patient): Male Spiritual care concerns: No Agree to blood products: Yes Meds Home Medications and Allergies Home Medications Medication Instructions Recorded Confirmed Type cholecalciferol (vitamin D3) 25 mcg PO DAILY #0 06/05/19 04/20/20 History finasteride 5 mg PO DAILY 06/05/19 04/20/20 History furosemide 20 mg PO DAILY 06/05/19 04/20/20 History gabapentin 300 mg PO TID 06/05/19 04/20/20 History lisinopril 10 mg PO DAILY 06/05/19 04/20/20 History
--- NOTE | 2020-04-20 03:00 | ADMGEN ---
This patient, Alfredo Cody, was admitted to Medical Room 340-01. Patient/family oriented to hospital policies and general routines including ID bracelet, bed and alarms, visiting hours, pain management, procedures, bathroom and other care routines, personal items, smoking policy, room service/diet, and visiting hours. Information on how to activate the Rapid Response Team has been discussed. Patient/Family are encouraged to report perceived risks to care and to ask questions if they do not understand what they are told or what they should do.
[2020-04-20] MEDS: SODIUM CHLORIDE 0.9% IV 1,000 ML 120 ML IV CONT ×3 (03:20→22:44)
[2020-04-20] MEDS: ENOXAPARIN 40 MG/0.4 ML SYRINGE SUB-Q (08:29)
[2020-04-20 08:40] LABS: Glucose Point of Care 138 (65-105)
[2020-04-20 11:24] LABS: Glucose Point of Care 175 (65-105)
[2020-04-20] MEDS: SILVERGEL (ELTA) 45 ML 1 APPLIC TOPICAL (11:34)
--- NOTE | 2020-04-20 14:25 | PM.IMPN ---
Progress Note: A&P Assessment and Plan (1) Altered mental status: Qualifiers: Altered mental status type: unspecified Qualified Code(s): R41.82 - Altered mental status, unspecified Code(s): R41.82 - Altered mental status, unspecified Status: Resolved Assessment and Plan: Currently resolved. CT brain was unremarkable for acute pathology. Patient may have had an episode of hypoglycemia. The patient has been placed in observation status. Neuro checks. Continue to treat UTI. Patient is 74-year-old a resident of retirement history of diabetes, coronary artery disease peripheral vascular disease status post bilateral opehi-vky-yzss amputation, patient was sent to emergency department as patient was confused and staring and was not very responsive to retirement staff, however upon arrival to the emergency department patient was more appropriate, however patient has a history of multidrug resistant UTI and his urine was quite abnormal patient, patient met the criteria for sepsis with a leukocytosis, tachycardia and source of infection UTI, was started on Zosyn, and will follow-up on urine culture, currently patient states is feeling better he denies any abdominal pain nausea or vomiting fever or chills, patient is morbidly obese will have a PT OT evaluate the patient and further recommendation to follow (2) Sepsis: Qualifiers: Sepsis type: sepsis due to unspecified organism Sepsis acute organ dysfunction status: with acute organ dysfunction Severe sepsis acute organ dysfunction type: acute renal failure Acute renal failure type: unspecified Severe sepsis shock status: without septic shock Qualified Code(s): A41.9 - Sepsis, unspecified organism; R65.20 - Severe sepsis without septic shock; N17.9 - Acute kidney failure, unspecified Code(s): A41.9 - Sepsis, unspecified organism Status: Acute Assessment and Plan: With tachycardia and leukocytosis. Source of sepsis appears to be urinary. Continue wide-spectrum IV antibiotics. Monitor vital signs and urine output closely. Check lactic acid. Blood cultures pending. (3) GISELLE (acute kidney injury): Code(s): N17.9 - Acute kidney failure, unspecified Status: Acute Assessment and Plan: Continue IV fluid challenge overnight. Monitor renal function and urine output. Avoid nephrotoxin agents. Renally dose medications. (4) Complicated UTI (urinary tract infection): Code(s): N39.0 - Urinary tract infection, site not specified Status: Acute Assessment and Plan: Continue wide-spectrum antibiotics as the patient is known to have had ESBL E coli in the past. Urine cultures pending. (5) Chronic anemia: Code(s): D64.9 - Anemia, unspecified Status: Chronic Assessment and Plan: Likely anemia of chronic disease. No signs of acute blood loss. Monitor H&H, transfuse p.r.n.. (6) Insulin dependent type 2 diabetes mellitus: Code(s): E11.9 - Type 2 diabetes mellitus without complications; Z79.4 - [facility] (current) use of insulin Status: Chronic Assessment and Plan: Accu-Cheks. Sliding scale insulin coverage. Hypoglycemia protocol. Continue home Lantus insulin. Hold metformin secondary to acute renal failure. (7) Dementia: Qualifiers: Dementia type: unspecified type Dementia behavioral disturbance: without behavioral disturbance Qualified Code(s): F03.90 - Unspecified dementia without behavioral disturbance Code(s): F03.90 - Unspecified dementia without behavioral disturbance Status: Chronic Assessment and Plan: Stable. Continue Namenda. (8) Hypertension: Qualifiers: Hypertension type: unspecified Qualified Code(s): I10 - Essential (primary) hypertension Code(s): I10 - Essential (primary) hypertension Status: Chronic Assessment and Plan: Stable. Monitor blood pressure. Hold lisinopril sec
[2020-04-20 16:40] LABS: Glucose Point of Care 164 (65-105)
[2020-04-20 23:31] LABS: Glucose Point of Care 198 (65-105)
[2020-04-21] VITALS (9 sets, daily range): BP systolic 138–154; BP diastolic 47–63; PULSE 82–98; RESP 17–18; TEMP 35.8–36.2; O2SAT 97–100
[2020-04-21 06:16] LABS: Basophils Percent Auto 0.2 % (0.2-1.2); Eosinophils Absolute Auto 0.1 K/mm3 (0-0.3); Eosinophils Percent Auto 0.9 % (0-4.4); Hematocrit 28.6 % (42.0-52.0); Hemoglobin 9.2 g/dL (14.0-18.0); Immature Granulocyte Absolute 0.05 K/mm3 (0.00-0.031); Immature Granulocyte Percent A 0.5 % (0-0.5); Lymphocytes Percent Auto 9.3 % (18.3-44.2); Mean Corpuscular HGB Conc 32.2 g/dl (32-36); Mean Corpuscular Volume 83.9 fl (80-100); Mean Platelet Volume 10.2 fl (7.4-10.4); Monocytes Percent Auto 9.9 % (2.6-8.5); Neutrophils Absolute Auto 7.7 K/mm3 (1.3-6.7); Neutrophils Percent Auto 79.2 % (45.5-73.1); Platelet Count Result 196 k/mm3 (150-375); Red Blood Count 3.41 M/mm3 (4.6-6.20); Red Cell Distribution Width 13.8 % (11.5-14.5); White Blood Count 9.7 K/mm3 (4.5-10.0)
[2020-04-21 06:47] LABS: Anion Gap 5 mmol/L (8-16); Blood Urea Nitrogen 20 mg/dL (9-20); Calcium 7.9 mg/dL (8.4-10.2); Carbon Dioxide 26 mmol/L (22-30); Chloride 97 mmol/L (98-107); Estimated CRCL calculation 77 ml/min; Estimated Glomerular Filt Rate > 60; Glucose 182 mg/dL (75-110); Potassium 3.6 mmol/L (3.4-5.0); Sodium 128 mmol/L (137-145)
[2020-04-21 07:54] LABS: Glucose Point of Care 170 (65-105)
[2020-04-21] MEDS: SODIUM CHLORIDE 0.9% IV 1,000 ML 120 ML IV CONT ×2 (08:16→18:03)
[2020-04-21] MEDS: ENOXAPARIN 40 MG/0.4 ML SYRINGE SUB-Q (08:17)
[2020-04-21] MEDS: SILVERGEL (ELTA) 45 ML 1 APPLIC TOPICAL (08:17)
[2020-04-21] MEDS: INSULIN ASPART (*BKC) 100 UNITS/ML SUB-Q (12:45)
[2020-04-21 13:02] LABS: Glucose Point of Care 237 (65-105)
--- NOTE | 2020-04-21 13:38 | PM.IMPN ---
Progress Note: A&P Assessment and Plan (1) Altered mental status: Qualifiers: Altered mental status type: unspecified Qualified Code(s): R41.82 - Altered mental status, unspecified Code(s): R41.82 - Altered mental status, unspecified Status: Resolved Assessment and Plan: Currently resolved. CT brain was unremarkable for acute pathology. Patient may have had an episode of hypoglycemia. The patient has been 04/21/20 13:38 Patient is 74-year-old a resident of assisted history of diabetes, coronary artery disease peripheral vascular disease status post bilateral jbhbz-hjc-xwzv amputation, patient was sent to emergency department as patient was confused and staring and was not very responsive to assisted staff, however upon arrival to the emergency department patient was more appropriate, however patient has a history of multidrug resistant UTI and his urine was quite abnormal, patient met the criteria for sepsis with a leukocytosis, tachycardia and source of infection UTI, was started on Zosyn, urine blood cultures still pending, patient is participate in physical therapy, currently patient states is feeling better he denies any abdominal pain nausea or vomiting fever or chills, patient is morbidly obese will continue PT OT, and further recommendation to follow (2) Sepsis: Qualifiers: Sepsis type: sepsis due to unspecified organism Sepsis acute organ dysfunction status: with acute organ dysfunction Severe sepsis acute organ dysfunction type: acute renal failure Acute renal failure type: unspecified Severe sepsis shock status: without septic shock Qualified Code(s): A41.9 - Sepsis, unspecified organism; R65.20 - Severe sepsis without septic shock; N17.9 - Acute kidney failure, unspecified Code(s): A41.9 - Sepsis, unspecified organism Status: Acute Assessment and Plan: With tachycardia and leukocytosis. Source of sepsis appears to be urinary. Continue wide-spectrum IV antibiotics. Monitor vital signs and urine output closely. Check lactic acid. Blood cultures pending. (3) GISELLE (acute kidney injury): Code(s): N17.9 - Acute kidney failure, unspecified Status: Acute Assessment and Plan: Continue IV fluid challenge overnight. Monitor renal function and urine output. Avoid nephrotoxin agents. Renally dose medications. (4) Complicated UTI (urinary tract infection): Code(s): N39.0 - Urinary tract infection, site not specified Status: Acute Assessment and Plan: Continue wide-spectrum antibiotics as the patient is known to have had ESBL E coli in the past. Urine cultures pending. (5) Chronic anemia: Code(s): D64.9 - Anemia, unspecified Status: Chronic Assessment and Plan: Likely anemia of chronic disease. No signs of acute blood loss. Monitor H&H, transfuse p.r.n.. 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 Sliding scale insulin coverage. Hypoglycemia protocol. Continue home Lantus insulin. Hold metformin secondary to acute renal failure. (7) Dementia: Qualifiers: Dementia type: unspecified type Dementia behavioral disturbance: without behavioral disturbance Qualified Code(s): F03.90 - Unspecified dementia without behavioral disturbance Code(s): F03.90 - Unspecified dementia without behavioral disturbance Status: Chronic Assessment and Plan: Stable. Continue Namenda. (8) Hypertension: Qualifiers: Hypertension type: unspecified Qualified Code(s): I10 - Essential (primary) hypertension Code(s): I10 - Essential (primary) hypertension Status: Chronic Assessment and Plan: Stable. Monitor blood pressure. Hold lisinopril secondary to acute renal failure. Con
[2020-04-21 17:05] LABS: Glucose Point of Care 199 (65-105)
[2020-04-21 22:43] LABS: Glucose Point of Care 211 (65-105)
[2020-04-22] VITALS (9 sets, daily range): BP systolic 152–155; BP diastolic 58–82; PULSE 80–93; RESP 16–18; TEMP 35.9–36.2; O2SAT 97–100
[2020-04-22] MEDS: SODIUM CHLORIDE 0.9% IV 1,000 ML 120 ML IV CONT ×3 (04:17→22:38)
[2020-04-22 06:04] LABS: Hematocrit 28.7 % (42.0-52.0); Hemoglobin 9.5 g/dL (14.0-18.0); Mean Corpuscular HGB Conc 33.1 g/dl (32-36); Mean Corpuscular Hemoglobin 27.6 pg (26-34); Mean Corpuscular Volume 83.4 fl (80-100); Mean Platelet Volume 10.6 fl (7.4-10.4); Platelet Count Result 198 k/mm3 (150-375); Red Blood Count 3.44 M/mm3 (4.6-6.20); Red Cell Distribution Width 13.7 % (11.5-14.5); White Blood Count 8.4 K/mm3 (4.5-10.0)
[2020-04-22 06:24] LABS: Anion Gap 9 mmol/L (8-16); Blood Urea Nitrogen 15 mg/dL (9-20); Calcium 8.2 mg/dL (8.4-10.2); Carbon Dioxide 26 mmol/L (22-30); Chloride 97 mmol/L (98-107); Estimated CRCL calculation 86 ml/min; Estimated Glomerular Filt Rate > 60; Glucose 176 mg/dL (75-110); Potassium 3.5 mmol/L (3.4-5.0); Sodium 132 mmol/L (137-145)
[2020-04-22 07:43] LABS: Glucose Point of Care 179 (65-105)
[2020-04-22] MEDS: SILVERGEL (ELTA) 45 ML 1 APPLIC TOPICAL (08:49)
[2020-04-22] MEDS: ENOXAPARIN 40 MG/0.4 ML SYRINGE SUB-Q (08:49)
[2020-04-22 12:00] LABS: Glucose Point of Care 219 (65-105)
[2020-04-22] MEDS: INSULIN ASPART (*BKC) 100 UNITS/ML SUB-Q ×2 (12:17→17:12)
--- NOTE | 2020-04-22 13:16 | PM.IMPN ---
Progress Note: A&P Assessment and Plan (1) Altered mental status: Qualifiers: Altered mental status type: unspecified Qualified Code(s): R41.82 - Altered mental status, unspecified Code(s): R41.82 - Altered mental status, unspecified Status: Resolved Assessment and Plan: Currently resolved. CT brain was unremarkable for acute pathology. Patient may have had an episode of hypoglycemia. The patient has been 12/ The patient has been 04/22/20 13:17 Patient is 74-year-old a resident of care home history of diabetes, coronary artery disease peripheral vascular disease status post bilateral [id number] amputation, patient was sent to emergency department as patient was confused and staring and was not very responsive to care home staff, however upon arrival to the emergency department patient was more appropriate, however patient has a history of multidrug resistant UTI and his urine was quite abnormal, patient met the criteria for sepsis with a leukocytosis, tachycardia and source of infection UTI, was started on Zosyn, urine cultures E coli ESBL sensitive to Zosyn 07/02, will give total of 7days, patient is participate in physical therapy, currently patient states is feeling better he denies any abdominal pain nausea or vomiting fever or chills, patient is morbidly obese will continue PT OT, and further recommendation to follow (2) Sepsis: Qualifiers: Acute renal failure type: unspecified Sepsis acute organ dysfunction status: with acute organ dysfunction Sepsis type: sepsis due to unspecified organism Severe sepsis acute organ dysfunction type: acute renal failure Severe sepsis shock status: without septic shock Qualified Code(s): A41.9 - Sepsis, unspecified organism; R65.20 - Severe sepsis without septic shock; N17.9 - Acute kidney failure, unspecified Code(s): A41.9 - Sepsis, unspecified organism Status: Acute Assessment and Plan: With tachycardia and leukocytosis. Source of sepsis appears to be urinary. Continue wide-spectrum IV antibiotics. Monitor vital signs and urine output closely. Check lactic acid. Blood cultures pending. (3) GISELLE (acute kidney injury): Code(s): N17.9 - Acute kidney failure, unspecified Status: Acute Assessment and Plan: Continue IV fluid challenge overnight. Monitor renal function and urine output. Avoid nephrotoxin agents. Renally dose medications. (4) Complicated UTI (urinary tract infection): Code(s): N39.0 - Urinary tract infection, site not specified Status: Acute Assessment and Plan: Continue wide-spectrum antibiotics as the patient is known to have had ESBL E coli in the past. Urine cultures pending. (5) Chronic anemia: Code(s): D64.9 - Anemia, unspecified Status: Chronic Assessment and Plan: Likely anemia of chronic disease. No signs of acute blood loss. Monitor H&H, transfuse p.r.n.. (6) Insulin dependent type 2 diabetes mellitus: Code(s): E11.9 - Type 2 diabetes mellitus without complications; Z79.4 - long-term (current) use of insulin Status: Chronic Assessment and Plan: Accu-Cheks. Sliding scale insulin coverage. Hypoglycemia protocol. Continue home Lantus insulin. Hold metformin secondary to acute renal failure. (7) Dementia: Qualifiers: Dementia behavioral disturbance: without behavioral disturbance Dementia type: unspecified type Qualified Code(s): F03.90 - Unspecified dementia without behavioral disturbance Code(s): F03.90 - Unspecified dementia without behavioral disturbance Status: Chronic Assessment and Plan: Stable. Continue Namenda. (8) Hypertension: Qualifiers: Hypertension type: unspecified Qualified Code(s): I10 - Essential (primary) hypertension Code(s): I10 - Essential (primary) hypertension Status: Chronic Assessment and Plan: Stable. Monitor blo
[2020-04-22 16:22] LABS: Glucose Point of Care 215 (65-105)
[2020-04-22 19:30] LABS: SARS-CoV-2 RNA PCR Negative
[2020-04-22 22:12] LABS: Glucose Point of Care 203 (65-105)
[2020-04-23] VITALS (9 sets, daily range): BP systolic 154–156; BP diastolic 65–74; PULSE 82–94; RESP 14–18; TEMP 36–36.7; O2SAT 98–99
[2020-04-23 06:19] LABS: Hematocrit 30.3 % (42.0-52.0); Hemoglobin 10.1 g/dL (14.0-18.0); Mean Corpuscular HGB Conc 33.3 g/dl (32-36); Mean Corpuscular Hemoglobin 27.5 pg (26-34); Mean Corpuscular Volume 82.6 fl (80-100); Mean Platelet Volume 10.2 fl (7.4-10.4); Platelet Count Result 255 k/mm3 (150-375); Red Blood Count 3.67 M/mm3 (4.6-6.20); Red Cell Distribution Width 13.7 % (11.5-14.5); White Blood Count 8.6 K/mm3 (4.5-10.0)
[2020-04-23] MEDS: SODIUM CHLORIDE 0.9% IV 1,000 ML 120 ML IV CONT ×3 (06:23→23:56)
[2020-04-23 06:30] LABS: Anion Gap 9 mmol/L (8-16); Blood Urea Nitrogen 14 mg/dL (9-20); Calcium 8.6 mg/dL (8.4-10.2); Carbon Dioxide 25 mmol/L (22-30); Chloride 99 mmol/L (98-107); Estimated CRCL calculation 86 ml/min; Estimated Glomerular Filt Rate > 60; Glucose 195 mg/dL (75-110); Potassium 3.2 mmol/L (3.4-5.0); Sodium 133 mmol/L (137-145)
[2020-04-23 07:39] LABS: Glucose Point of Care 201 (65-105)
[2020-04-23] MEDS: POTASSIUM CHLORIDE 20 MEQ TABLET 40 MEQ PO (08:04)
[2020-04-23] MEDS: INSULIN ASPART (*BKC) 100 UNITS/ML SUB-Q ×2 (08:04→16:50)
[2020-04-23] MEDS: SILVERGEL (ELTA) 45 ML 1 APPLIC TOPICAL (08:05)
[2020-04-23] MEDS: ENOXAPARIN 40 MG/0.4 ML SYRINGE SUB-Q (08:09)
[2020-04-23 11:16] LABS: Glucose Point of Care 191 (65-105)
--- NOTE | 2020-04-23 15:03 | PM.IMPN ---
Progress Note: A&P Assessment and Plan (1) Altered mental status: Qualifiers: Altered mental status type: unspecified Qualified Code(s): R41.82 - Altered mental status, unspecified Code(s): R41.82 - Altered mental status, unspecified Status: Resolved Assessment and Plan: Currently resolved. CT brain was unremarkable for acute pathology. Patient may have had an episode of hypoglycemia. The patient has been 04/23/20 15:03 Patient is 74-year-old a resident of shelter history of diabetes, coronary artery disease peripheral vascular disease status post bilateral [id number]-vkv-[id number] amputation, patient was sent to emergency department as patient was confused and staring and was not very responsive to shelter staff, however upon arrival to the emergency department patient was more appropriate, however patient has a history of multidrug resistant UTI and his urine was quite abnormal, patient met the criteria for sepsis with a leukocytosis, tachycardia and source of infection UTI, was started on Zosyn, urine cultures E coli ESBL sensitive to Zosyn 08/02, will give total of 7days, will complete his IV abx on 04/26 and we will discharge him, patient is participate in physical therapy, currently patient states is feeling better he denies any abdominal pain nausea or vomiting fever or chills, patient is morbidly obese will continue PT OT, and further recommendation to follow (2) Sepsis: Qualifiers: Sepsis type: sepsis due to unspecified organism Sepsis acute organ dysfunction status: with acute organ dysfunction Severe sepsis acute organ dysfunction type: acute renal failure Acute renal failure type: unspecified Severe sepsis shock status: without septic shock Qualified Code(s): A41.9 - Sepsis, unspecified organism; R65.20 - Severe sepsis without septic shock; N17.9 - Acute kidney failure, unspecified Code(s): A41.9 - Sepsis, unspecified organism Status: Acute Assessment and Plan: With tachycardia and leukocytosis. Source of sepsis appears to be urinary. Continue wide-spectrum IV antibiotics. Monitor vital signs and urine output closely. Check lactic acid. Blood cultures pending. (3) GISELLE (acute kidney injury): Code(s): N17.9 - Acute kidney failure, unspecified Status: Acute Assessment and Plan: Continue IV fluid challenge overnight. Monitor renal function and urine output. Avoid nephrotoxin agents. Renally dose medications. (4) Complicated UTI (urinary tract infection): Code(s): N39.0 - Urinary tract infection, site not specified Status: Acute Assessment and Plan: Continue wide-spectrum antibiotics as the patient is known to have had ESBL E coli in the past. Urine cultures pending. (5) Chronic anemia: Code(s): D64.9 - Anemia, unspecified Status: Chronic Assessment and Plan: Likely anemia of chronic disease. No signs of acute blood loss. Monitor H&H, transfuse p.r.n.. (6) Insulin dependent type 2 diabetes mellitus: Code(s): E11.9 - Type 2 diabetes mellitus without complications; Z79.4 - prison (current) use of insulin Status: Chronic Assessment and Plan: Accu-Cheks. Sliding scale insulin coverage. Hypoglycemia protocol. Continue home Lantus insulin. Hold metformin secondary to acute renal failure. (7) Dementia: Qualifiers: Dementia type: unspecified type Dementia behavioral disturbance: without behavioral disturbance Qualified Code(s): F03.90 - Unspecified dementia without behavioral disturbance Code(s): F03.90 - Unspecified dementia without behavioral disturbance Status: Chronic Assessment and Plan: Stable. Continue Namenda. (8) Hypertension: Qualifiers: Hypertension type: unspecified Qualified Code(s): I10 - Essential (primary) hypertension Code(s): I10 - Essential (primary) hypertension Status: Chronic Ass
[2020-04-23 16:39] LABS: Glucose Point of Care 218 (65-105)
[2020-04-23 21:22] LABS: Glucose Point of Care 199 (65-105)
[2020-04-24] VITALS (9 sets, daily range): BP systolic 112–172; BP diastolic 44–74; PULSE 75–93; RESP 16–20; TEMP 35.9–36.3; O2SAT 98–100
[2020-04-24 06:19] LABS: Hematocrit 32.7 % (42.0-52.0); Hemoglobin 10.5 g/dL (14.0-18.0); Mean Corpuscular HGB Conc 32.1 g/dl (32-36); Mean Corpuscular Hemoglobin 27.5 pg (26-34); Mean Corpuscular Volume 85.6 fl (80-100); Mean Platelet Volume 10.5 fl (7.4-10.4); Platelet Count Result 292 k/mm3 (150-375); Red Blood Count 3.82 M/mm3 (4.6-6.20); White Blood Count 8.4 K/mm3 (4.5-10.0)
[2020-04-24 06:30] LABS: Anion Gap 7 mmol/L (8-16); Blood Urea Nitrogen 16 mg/dL (9-20); Calcium 8.8 mg/dL (8.4-10.2); Carbon Dioxide 27 mmol/L (22-30); Chloride 100 mmol/L (98-107); Estimated CRCL calculation 97 ml/min; Estimated Glomerular Filt Rate > 60; Glucose 201 mg/dL (75-110); Potassium 3.4 mmol/L (3.4-5.0); Sodium 134 mmol/L (137-145)
[2020-04-24 07:46] LABS: Glucose Point of Care 175 (65-105)
[2020-04-24] MEDS: ENOXAPARIN 40 MG/0.4 ML SYRINGE SUB-Q (08:19)
[2020-04-24] MEDS: SILVERGEL (ELTA) 45 ML 1 APPLIC TOPICAL (08:19)
[2020-04-24] MEDS: POTASSIUM CHLORIDE 20 MEQ TABLET 40 MEQ PO (09:15)
[2020-04-24] MEDS: SODIUM CHLORIDE 0.9% IV 1,000 ML 120 ML IV CONT ×2 (11:30→20:48)
[2020-04-24 12:08] LABS: Glucose Point of Care 196 (65-105)
--- NOTE | 2020-04-24 14:34 | PM.IMPN ---
Progress Note: A&P Assessment and Plan (1) Altered mental status: Qualifiers: Altered mental status type: unspecified Qualified Code(s): R41.82 - Altered mental status, unspecified Code(s): R41.82 - Altered mental status, unspecified Status: Resolved Assessment and Plan: Currently resolved. CT brain was unremarkable for acute pathology. Patient may have had an episode of hypoglycemia. The patient has been 04/08/28 14:34 Patient is 74-year-old a resident of care home history of diabetes, coronary artery disease peripheral vascular disease status post bilateral [id number]-[id number]-[id number] amputation, patient was sent to emergency department as patient was confused and staring and was not very responsive to care home staff, however upon arrival to the emergency department patient was more appropriate, however patient has a history of multidrug resistant UTI and his urine was quite abnormal, patient met the criteria for sepsis with a leukocytosis, tachycardia and source of infection UTI, was started on Zosyn, urine cultures E coli ESBL sensitive to Zosyn 09/01, will give total of 7days, will complete his IV abx on 04/26 and we will discharge him, patient is participate in physical therapy, currently patient states is feeling better he denies any abdominal pain nausea or vomiting fever or chills, patient is morbidly obese will continue PT OT, and further recommendation to follow (2) Sepsis: Qualifiers: Sepsis type: sepsis due to unspecified organism Sepsis acute organ dysfunction status: with acute organ dysfunction Severe sepsis acute organ dysfunction type: acute renal failure Acute renal failure type: unspecified Severe sepsis shock status: without septic shock Qualified Code(s): A41.9 - Sepsis, unspecified organism; R65.20 - Severe sepsis without septic shock; N17.9 - Acute kidney failure, unspecified Code(s): A41.9 - Sepsis, unspecified organism Status: Acute Assessment and Plan: With tachycardia and leukocytosis. Source of sepsis appears to be urinary. Continue wide-spectrum IV antibiotics. Monitor vital signs and urine output closely. Check lactic acid. Blood cultures pending. (3) GISELLE (acute kidney injury): Code(s): N17.9 - Acute kidney failure, unspecified Status: Acute Assessment and Plan: Continue IV fluid challenge overnight. Monitor renal function and urine output. Avoid nephrotoxin agents. Renally dose medications. (4) Complicated UTI (urinary tract infection): Code(s): N39.0 - Urinary tract infection, site not specified Status: Acute Assessment and Plan: Continue wide-spectrum antibiotics as the patient is known to have had ESBL E coli in the past. Urine cultures pending. (5) Chronic anemia: Code(s): D64.9 - Anemia, unspecified Status: Chronic Assessment and Plan: Likely anemia of chronic disease. No signs of acute blood loss. Monitor H&H, transfuse p.r.n.. (6) Insulin dependent type 2 diabetes mellitus: Code(s): E11.9 - Type 2 diabetes mellitus without complications; Z79.4 - long-term (current) use of insulin Status: Chronic Assessment and Plan: Accu-Cheks. Sliding scale insulin coverage. Hypoglycemia protocol. Continue home Lantus insulin. Hold metformin secondary to acute renal failure. (7) Dementia: Qualifiers: Dementia type: unspecified type Dementia behavioral disturbance: without behavioral disturbance Qualified Code(s): F03.90 - Unspecified dementia without behavioral disturbance Code(s): F03.90 - Unspecified dementia without behavioral disturbance Status: Chronic Assessment and Plan: Stable. Continue Namenda. (8) Hypertension: Qualifiers: Hypertension type: unspecified Qualified Code(s): I10 - Essential (primary) hypertension Code(s): I10 - Essential (primary) hypertension Status: Chronic
[2020-04-24 16:46] LABS: Glucose Point of Care 242 (65-105)
[2020-04-24] MEDS: INSULIN ASPART (*BKC) 100 UNITS/ML SUB-Q (16:46)
[2020-04-25] VITALS: PULSE 78
[2020-04-25 04:00] VITALS: PULSE 81
[2020-04-25 05:38] LABS: Hematocrit 29.8 % (42.0-52.0); Hemoglobin 9.7 g/dL (14.0-18.0); Mean Corpuscular HGB Conc 32.6 g/dl (32-36); Mean Corpuscular Hemoglobin 26.9 pg (26-34); Mean Corpuscular Volume 82.8 fl (80-100); Mean Platelet Volume 10.1 fl (7.4-10.4); Platelet Count Result 324 k/mm3 (150-375); Red Cell Distribution Width 13.6 % (11.5-14.5); White Blood Count 8.7 K/mm3 (4.5-10.0)
[2020-04-25 05:51] VITALS: BP 158/68; PULSE 86; RESP 16; TEMP 36.3; O2SAT 100
[2020-04-25 05:53] LABS: Anion Gap 5 mmol/L (8-16); Blood Urea Nitrogen 12 mg/dL (9-20); Calcium 8.5 mg/dL (8.4-10.2); Carbon Dioxide 27 mmol/L (22-30); Chloride 101 mmol/L (98-107); Estimated CRCL calculation 97 ml/min; Estimated Glomerular Filt Rate > 60; Glucose 189 mg/dL (75-110); Potassium 3.5 mmol/L (3.4-5.0); Sodium 133 mmol/L (137-145)
[2020-04-25] MEDS: SODIUM CHLORIDE 0.9% IV 1,000 ML 120 ML IV CONT ×2 (05:54→15:18)
[2020-04-25 07:53] LABS: Glucose Point of Care 237 (65-105)
[2020-04-25 08:00] VITALS: PULSE 75
[2020-04-25] MEDS: INSULIN ASPART (*BKC) 100 UNITS/ML SUB-Q ×3 (08:04→16:24)
[2020-04-25] MEDS: ENOXAPARIN 40 MG/0.4 ML SYRINGE SUB-Q (08:09)
[2020-04-25] MEDS: SILVERGEL (ELTA) 45 ML 1 APPLIC TOPICAL (08:09)
--- NOTE | 2020-04-25 12:04 | PM.IMPN ---
Progress Note: A&P Assessment and Plan (1) Altered mental status: Qualifiers: Altered mental status type: unspecified Qualified Code(s): R41.82 - Altered mental status, unspecified Code(s): R41.82 - Altered mental status, unspecified Status: Resolved Assessment and Plan: 04/25/20 12:[address] brain was unremarkable for acute pathology. Patient may have had an episode of hypoglycemia. The patient has been /04/24/20 14:34 Patient is 74-year-[facility] history of diabetes, coronary artery disease peripheral vascular disease status post bilateral [id number]-[id number] amputation, patient was sent to emergency department as patient was confused and staring and was not very responsive to [facility] staff, however upon arrival to the emergency department patient was more appropriate, however patient has a history of multidrug resistant UTI and his urine was quite abnormal, patient met the criteria for sepsis with a leukocytosis, tachycardia and source of infection UTI, was started on Zosyn, urine cultures E coli ESBL sensitive to Zosyn 10/02, will give total of 7days, will complete his IV abx on 04/26 tomorrow and we will discharge him, patient is participatjng in physical therapy, currently patient states is feeling better he denies any abdominal pain nausea or vomiting fever or chills, patient is morbidly obese will continue PT OT, and further recommendation to follow (2) Sepsis: Qualifiers: Sepsis type: sepsis due to unspecified organism Sepsis acute organ dysfunction status: with acute organ dysfunction Severe sepsis acute organ dysfunction type: acute renal failure Acute renal failure type: unspecified Severe sepsis shock status: without septic shock Qualified Code(s): A41.9 - Sepsis, unspecified organism; R65.20 - Severe sepsis without septic shock; N17.9 - Acute kidney failure, unspecified Code(s): A41.9 - Sepsis, unspecified organism Status: Acute Assessment and Plan: With tachycardia and leukocytosis. Source of sepsis appears to be urinary. Continue wide-spectrum IV antibiotics. Monitor vital signs and urine output closely. Check lactic acid. Blood cultures pending. (3) GISELLE (acute kidney injury): Code(s): N17.9 - Acute kidney failure, unspecified Status: Acute Assessment and Plan: Continue IV fluid challenge overnight. Monitor renal function and urine output. Avoid nephrotoxin agents. Renally dose medications. (4) Complicated UTI (urinary tract infection): Code(s): N39.0 - Urinary tract infection, site not specified Status: Acute Assessment and Plan: Continue wide-spectrum antibiotics as the patient is known to have had ESBL E coli in the past. Urine cultures pending. (5) Chronic anemia: Code(s): D64.9 - Anemia, unspecified Status: Chronic Assessment and Plan: Likely anemia of chronic disease. No signs of acute blood loss. Monitor H&H, transfuse p.r.n.. (6) Insulin dependent type 2 diabetes mellitus: Code(s): E11.9 - Type 2 diabetes mellitus without complications; Z79.4 - long-term (current) use of insulin Status: Chronic Assessment and Plan: Accu-Cheks. Sliding scale insulin coverage. Hypoglycemia protocol. Continue home Lantus insulin. Hold metformin secondary to acute renal failure. (7) Dementia: Qualifiers: Dementia type: unspecified type Dementia behavioral disturbance: without behavioral disturbance Qualified Code(s): F03.90 - Unspecified dementia without behavioral disturbance Code(s): F03.90 - Unspecified dementia without behavioral disturbance Status: Chronic Assessment and Plan: Stable. Continue Namenda. (8) Hypertension: Qualifiers: Hypertension type: unspecified Qualified Code(s): I10 - Essential (primary) hypertension Code(s): I10 - Essential (primary) hypertension
[2020-04-25 12:15] LABS: Glucose Point of Care 237 (65-105)
[2020-04-25 14:00] VITALS: BP 118/72; PULSE 80; RESP 16; TEMP 36.3; O2SAT 98
--- NOTE | 2020-04-25 15:39 | PCDIET ---
Nutrition Follow-Up Complete: Increased Protein needs as related to wounds as evidenced by stage 3 PU noted. Meet estimated nutritional needs Goal: Progressing towards goal. Continue goal. Pt current nutrition is Diabetic + Moses BID Nutrition recommendation: agree Last recorded weight is 98.7 kg, recommend updated wt Bowel Motility: 4 bms yesterday Labs Reviewed: Glucose 189 Meds Noted:Zosyn Insulin Additional Notes: Pt eating 49% over last five meals. Diet and supplements for wound healing appropriate. Good intake encouraged. Will monitor for adequate intake and skin healing every 5 days.
[2020-04-25 16:37] LABS: Glucose Point of Care 221 (65-105)
[2020-04-25 19:29] VITALS: BP 148/78; PULSE 89; RESP 16; TEMP 36.3; O2SAT 97
[2020-04-25] MEDS: ACETAMINOPHEN 325 MG TABLET 650 MG PO (20:16)
[2020-04-25 21:27] LABS: Glucose Point of Care 191 (65-105)
[2020-04-26] MEDS: SODIUM CHLORIDE 0.9% IV 1,000 ML 120 ML IV CONT (00:51)
[2020-04-26 05:55] LABS: Hematocrit 31.4 % (42.0-52.0); Hemoglobin 10.4 g/dL (14.0-18.0); Mean Corpuscular HGB Conc 33.1 g/dl (32-36); Mean Corpuscular Hemoglobin 27.7 pg (26-34); Mean Corpuscular Volume 83.7 fl (80-100); Mean Platelet Volume 10.2 fl (7.4-10.4); Platelet Count Result 375 k/mm3 (150-375); Red Blood Count 3.75 M/mm3 (4.6-6.20); Red Cell Distribution Width 13.9 % (11.5-14.5)
[2020-04-26 06:00] VITALS: BP 154/55; PULSE 81; RESP 16; TEMP 36.2; O2SAT 99
[2020-04-26 06:21] LABS: Anion Gap 7 mmol/L (8-16); Blood Urea Nitrogen 11 mg/dL (9-20); Calcium 8.6 mg/dL (8.4-10.2); Carbon Dioxide 27 mmol/L (22-30); Chloride 100 mmol/L (98-107); Estimated CRCL calculation 111 ml/min; Estimated Glomerular Filt Rate > 60; Glucose 193 mg/dL (75-110); Potassium 3.3 mmol/L (3.4-5.0); Sodium 134 mmol/L (137-145)
[2020-04-26] MEDS: SILVERGEL (ELTA) 45 ML 1 APPLIC TOPICAL (08:01)
[2020-04-26] MEDS: ENOXAPARIN 40 MG/0.4 ML SYRINGE SUB-Q (08:01)
[2020-04-26 08:06] LABS: Glucose Point of Care 184 (65-105)
[2020-04-26] MEDS: POTASSIUM CHLORIDE 20 MEQ TABLET 40 MEQ PO (09:32)
--- NOTE | 2020-04-26 11:20 | PM.DS ---
DS: Admitting Diagnosis Admitting Diagnosis Admitting Diagnosis: altered mental status DS: Discharge Diagnosis Discharge Diagnosis (1) Altered mental status: Qualifiers: Altered mental status type: unspecified Qualified Code(s): R41.82 - Altered mental status, unspecified Code(s): R41.82 - Altered mental status, unspecified Status: Resolved Assessment and Plan: 04/25/20 12:[address] brain was unremarkable for acute pathology. Patient may have had an episode of hypoglycemia. The patient has been /04/24/20 14:34 Patient is 74-year-old a [facility] history of diabetes, coronary artery disease peripheral vascular disease status post bilateral [id number]-[id number] amputation, patient was sent to emergency department as patient was confused and staring and was not very responsive to [facility] staff, however upon arrival to the emergency department patient was more appropriate, however patient has a history of multidrug resistant UTI and his urine was quite abnormal, patient met the criteria for sepsis with a leukocytosis, tachycardia and source of infection UTI, was started on Zosyn, urine cultures E coli ESBL sensitive to Zosyn 10/02, will give total of 7days, will complete his IV abx on 04/26 tomorrow and we will discharge him, patient is participatjng in physical therapy, currently patient states is feeling better he denies any abdominal pain nausea or vomiting fever or chills, patient is morbidly obese will continue PT OT, and further recommendation to follow (2) Sepsis: Qualifiers: Sepsis type: sepsis due to unspecified organism Sepsis acute organ dysfunction status: with acute organ dysfunction Severe sepsis acute organ dysfunction type: acute renal failure Acute renal failure type: unspecified Severe sepsis shock status: without septic shock Qualified Code(s): A41.9 - Sepsis, unspecified organism; R65.20 - Severe sepsis without septic shock; N17.9 - Acute kidney failure, unspecified Code(s): A41.9 - Sepsis, unspecified organism Status: Acute Assessment and Plan: With tachycardia and leukocytosis. Source of sepsis appears to be urinary. Continue wide-spectrum IV antibiotics. Monitor vital signs and urine output closely. Check lactic acid. Blood cultures pending. (3) GISELLE (acute kidney injury): Code(s): N17.9 - Acute kidney failure, unspecified Status: Acute Assessment and Plan: Continue IV fluid challenge overnight. Monitor renal function and urine output. Avoid nephrotoxin agents. Renally dose medications. (4) Complicated UTI (urinary tract infection): Code(s): N39.0 - Urinary tract infection, site not specified Status: Acute Assessment and Plan: Continue wide-spectrum antibiotics as the patient is known to have had ESBL E coli in the past. Urine cultures pending. (5) Chronic anemia: Code(s): D64.9 - Anemia, unspecified Status: Chronic Assessment and Plan: Likely anemia of chronic disease. No signs of acute blood loss. Monitor H&H, transfuse p.r.n.. (6) Insulin dependent type 2 diabetes mellitus: Code(s): E11.9 - Type 2 diabetes mellitus without complications; Z79.4 - intermediate manager (current) use of insulin Status: Chronic Assessment and Plan: Accu-Cheks. Sliding scale insulin coverage. Hypoglycemia protocol. Continue home Lantus insulin. Hold metformin secondary to acute renal failure. (7) Dementia: Qualifiers: Dementia type: unspecified type Dementia behavioral disturbance: without behavioral disturbance Qualified Code(s): F03.90 - Unspecified dementia without behavioral disturbance Code(s): F03.90 - Unspecified dementia without behavioral disturbance Status: Chronic Assessment and Plan: Stable. Continue Namenda. (8) Hypertension: Qualifiers: Hypertension type: unspecified Qualified Code(s
--- NOTE | 2020-04-26 12:13 | PC.NURSE ---
Wound photos taken. Report given to facility. Patient belongings packed up. Patient is ready for discharge.
[2020-04-26 12:41] LABS: Glucose Point of Care 252 (65-105)
[2020-04-26] MEDS: INSULIN ASPART (*BKC) 100 UNITS/ML SUB-Q (12:49)
[2020-04-26 14:00] VITALS: BP 154/64; PULSE 91; RESP 18; TEMP 36.3; O2SAT 98
[2020-04-26 18:01] LABS: SARS-CoV-2 RNA PCR Negative
== END 2020-04-26 18:06 | DRG 872 ==
LOC: ANHED 04-20 00:13 → ANH3MED 04-20 00:53
PROVIDERS: Student in an Organized Health Care Education/Training Program; Admitting Provider Family Medicine; Emergency Provider Emergency Medicine; PCP General Practice; Visit Provider Family Medicine
DX: A41.51 Sepsis due to Escherichia coli [E. coli] (principal); N39.0 Urinary tract infection, site not specified; N17.9 Acute kidney failure, unspecified; R65.20 Severe sepsis without septic shock; Z20.828 Contact with and (suspected) exposure to other viral communicable diseases; E11.42 Type 2 diabetes mellitus with diabetic polyneuropathy; E11.51 Type 2 diabetes mellitus with diabetic peripheral angiopathy without gangrene; D63.8 Anemia in other chronic diseases classified elsewhere; F03.90 Unspecified dementia, unspecified severity, without behavioral disturbance, psychotic disturbance, mood disturbance, and anxiety; I10 Essential (primary) hypertension; N40.0 Benign prostatic hyperplasia without lower urinary tract symptoms; E78.5 Hyperlipidemia, unspecified; E03.9 Hypothyroidism, unspecified; M19.90 Unspecified osteoarthritis, unspecified site; E66.01 Morbid (severe) obesity due to excess calories; Z66 Do not resuscitate; Z68.31 Body mass index [BMI] 31.0-31.9, adult; F17.290 Nicotine dependence, other tobacco product, uncomplicated; Z89.511 Acquired absence of right leg below knee; Z89.512 Acquired absence of left leg below knee; Z79.4 Long term (current) use of insulin; Z95.5 Presence of coronary angioplasty implant and graft
CPT/HCPCS: 36415; 51701; 70450; 71045; 80048; 81001; 82948; 85025; 85027; 87077; 87086; 87088; 87186; 87635; 93005; 96361; 96365; 96367; 97162; 97166; 99285; A9270; C9803; G0378; J0696; J1650; J1815; J2543; J7030; U0003